=== PATIENT | female | born 1955 | race African-American/Black ===

== ENCOUNTER 2016-06-22 16:36 | Emergency (ER) | payer MEDICAID ==
[~2016-06-22] VITALS: Ht 157.5 cm; Wt 93.0 kg
[~2016-06-22 16:36] MED LIST: GABA-529 PO; LISI-186 PO; METF500T4 PO
[2016-06-22] MEDS ORDERED: SODIUM CHLORIDE 0.9% 2,000 ML IV ONE (19:29)
[2016-06-22 20:06] LABS: BASOPHILS % 1.6 % (0.0-2.0); EOSINOPHILS % 1.9 % (0.0-5.0); HEMATOCRIT. 46.6 % (36.0-48.0); HEMOGLOBIN. 16.1 g/dL (12.0-16.0); LYMPHOCYTES % 30.2 % (20.0-50.0); MEAN CORPUSCULAR HEMOGLOBIN 33.3 pg (28.0-32.0); MEAN CORPUSCULAR HGB CONC 34.5 g/dL (31.0-37.0); MEAN CORPUSCULAR VOLUME 96.3 fL (81.0-99.0); MEAN PLATELET VOLUME 8.4 fl (7.4-10.4); MONOCYTES % 9.5 % (2.0-8.0); NEUTROPHILS % 56.8 % (40.0-76.0); PLATELET 292 x1000/uL (130-400); RED BLOOD CELL COUNT 4.84 mill/uL (4.2-5.4); RED CELL DISTRIBUTION WIDTH 13.1 % (11.6-14.6); WHITE BLOOD COUNT 8.7 x1000/uL (4.5-11.0)
[2016-06-22 20:12] LABS: PROTHROMBIN TIME 10.5 sec
[2016-06-22] MEDS ORDERED: MORPHINE SULFATE 4 MG/ML CPJ (NOT FOR IM USE) IV ONE ×2 (20:15→21:45)
[2016-06-22] MEDS ORDERED: ONDANSETRON HCL 4MG/2ML VIAL IV ONE (20:15)
[2016-06-22 20:29] LABS: ALANINE AMINOTRANSFERASE 24 IU/L (13-61); ALBUMIN 3.8 g/dL (3.4-5.0); ANION GAP 14; BETA HYDROXYBUTYRATE 0.3 mMol/L (0.0-0.3); CALCIUM 9.1 mg/dL (8.5-10.1); CARBON DIOXIDE 25 mEq/L (21-32); CHLORIDE 102 mEq/L (98-107); INDEX HEMOLYSI 4 (1-3); INDEX ICTERIC 1 (1-4); INDEX LIPEMIC 1 (1-3); NT PRO B-TYPE NATRIURETIC PEP 105 pg/mL (5-125); TROPONIN I < 0.02 ng/mL (0.00-0.04); UREA NITROGEN BLOOD 6 mg/dL (7-21); eGFR > 60 mL/min (>60)
[2016-06-22 21:30] LABS: CLARITY URINE CLEAR (CLEAR); COLOR URINE YELLOW (YELLOW); GLUCOSE URINE 3+ (NEGATIVE); KETONES URINE 1+ (NEGATIVE); LEUKOCYTE ESTERASE URINE 1+ (NEGATIVE); NITRITE URINE NEGATIVE (NEGATIVE); OCCULT BLOOD URINE 1+ (NEGATIVE); PH URINE 5.5 (4.5-8.0); PROTEIN URINE TRACE (NEGATIVE); SPECIFIC GRAVITY URINE 1.042 (1.005-1.030)
[2016-06-22 21:33] LABS: BG BASE EXCESS -1.7 mmol/L (-2.0-2.0); BG CARBOXYHEMOGLOBIN 3.6 % (0.5-1.5); BG DEOXYHEMOGLOBIN 2.8 % (0.0-5.0); BG FRACTION INSPIRED OXYGEN 21; BG HCO3 ACT 21.7 mmol/L (22.0-26.0); BG METHEMOGLOBIN 0.2 % (0.0-1.5); BG OXYGEN SATURATION 97.1 % (92.0-98.5); BG OXYHEMOGLOBIN 93.4 % (94.0-97.0); BG PCO2 33.5 mmHg (35.0-45.0); BG PH 7.429 (7.350-7.450); BG PO2 92.8 mmHg (75.0-100.0); BG SAMPLE SITE RIGHT RADIAL; BG TOTAL HEMOGLOBIN 15.7 g/dL (12.0-18.0); BG VENT MODE ROOM AIR
[2016-06-22 21:49] LABS: BACTERIA URINE 2+; SQUAMOUS EPITHELIAL CELL URINE 1+ /lpf (RARE/1+)
[2016-06-22] MEDS ORDERED: CEPHALEXIN 500MG CAPSULE PO ONE (23:30)
[2016-06-22] MEDS ORDERED: VALACYCLOVIR HCL 500MG TABLET PO SCH (23:30)
[2016-06-23 00:50] VITALS: BP 136/79
== END 2016-06-23 01:20 | disposition home or self-care (01) ==
LOC: ER 16:37
DX: B00.9 Herpesviral infection, unspecified (principal); E11.65 Type 2 diabetes mellitus with hyperglycemia; J45.909 Unspecified asthma, uncomplicated; I10 Essential (primary) hypertension; F17.210 Nicotine dependence, cigarettes, uncomplicated; Z79.4 Long term (current) use of insulin
CPT/HCPCS: 36415; 36600; 71010; 80053; 81001; 82010; 82375; 82805; 83880; 84484; 85025; 85610; 93005; 96374; 96375; 96376; 99285; 99406; J2270; J2405; J7030; Z7610

== ENCOUNTER 2016-09-26 17:24 | Inpatient (IN) | payer MEDICAID ==
[~2016-09-26] VITALS: Ht 162.6 cm; Wt 99.8 kg
[2016-09-26] MEDS ORDERED: MORPHINE SULFATE 4 MG/ML CPJ (NOT FOR IM USE) IV ONE (18:15)
[2016-09-26] MEDS ORDERED: ONDANSETRON HCL 4MG/2ML VIAL IV ONE (18:15)
[2016-09-26] MEDS ORDERED: ONDANSETRON 4MG ODT PO ONE (19:15)
[2016-09-26] MEDS ORDERED: HYDROCODONE/ACETAMINOPHEN 5/325MG TABLET PO ONE (19:15)
[2016-09-26 20:19] LABS: *AMPHETAMINES SCREEN URINE NEGATIVE (NEGATIVE); *BARBITURATES SCREEN URINE NEGATIVE (NEGATIVE); *BENZODIAZEPINES SCREEN URINE NEGATIVE (NEGATIVE); *COCAINE SCREEN URINE NEGATIVE (NEGATIVE); CANNABINOID URINE SCREEN NEGATIVE (NEGATIVE); METHADONE URINE SCREEN NEGATIVE (NEGATIVE); OPIATES URINE SCREEN PRESUMTIVE POSITIVE (NEGATIVE); PHENCYCLIDINE URINE SCREEN NEGATIVE (NEGATIVE)
[2016-09-26 20:37] LABS: BASOPHILS % 0.6 % (0.0-2.0); EOSINOPHILS % 0.1 % (0.0-5.0); HEMATOCRIT. 39.6 % (36.0-48.0); HEMOGLOBIN. 13.7 g/dL (12.0-16.0); LYMPHOCYTES % 9.2 % (20.0-50.0); MEAN CORPUSCULAR HEMOGLOBIN 33.2 pg (28.0-32.0); MEAN CORPUSCULAR VOLUME 96.1 fL (81.0-99.0); MEAN PLATELET VOLUME 7.7 fl (7.4-10.4); MONOCYTES % 8.7 % (2.0-8.0); NEUTROPHILS % 81.4 % (40.0-76.0); PLATELET 297 x1000/uL (130-400); RED BLOOD CELL COUNT 4.12 mill/uL (4.2-5.4); RED CELL DISTRIBUTION WIDTH 12.5 % (11.6-14.6)
[2016-09-26 20:38] LABS: CHLORIDE 105 mEq/L (98-107)
[2016-09-26 20:42] LABS: D-DIMER 0.33 mg/L FEU (<0.50); INR 1.1; PARTIAL THROMBOPLASTIN TIME 23.3 sec (24.0-34.0); PROTHROMBIN TIME 11.1 sec
[2016-09-26 20:45] LABS: CARBON DIOXIDE 24 mEq/L (21-32); ETHANOL BLOOD 17 mg/dL
[2016-09-26 20:49] LABS: TROPONIN I 0.12 ng/mL (0.00-0.04)
[2016-09-27] MEDS ORDERED: MORPHINE SULFATE 4 MG/ML CPJ (NOT FOR IM USE) IV ONE (00:15)
[2016-09-27] MEDS ORDERED: AMPICILLIN SOD/SULBACTAM NA 3 G in SODIUM CHLORIDE 0.9% 100 ML IV SCH (00:15)
[2016-09-27 08:00] VITALS: BP 100/63
[2016-09-27] MEDS ORDERED: MORPHINE SULFATE 2 MG/ML CPJ (NOT FOR IM USE) IV PRN (10:15)
[2016-09-27] MEDS ORDERED: ENOXAPARIN 40MG/0.4ML SYR SUBCUT SCH (11:00)
[2016-09-27] MEDS ORDERED: ONDANSETRON HCL 4MG/2ML VIAL IV PRN (12:00)
[2016-09-27] MEDS ORDERED: LORAZEPAM 0.5MG TABLET PO PRN (12:00)
[2016-09-27] MEDS ORDERED: LORAZEPAM 2MG/ML CPJ IV PRN (12:00)
[2016-09-27] MEDS ORDERED: DOCUSATE SODIUM 100MG CAPSULE PO PRN (12:00)
[2016-09-27] MEDS ORDERED: ACETAMINOPHEN 325MG TABLET PO PRN (12:00)
[2016-09-27] MEDS ORDERED: HYDROMORPHONE HCL/PF 2MG/ML CPJ IV PRN (12:00)
[2016-09-27] MEDS ORDERED: IPRATROPIUM/ALBUTEROL 0.5-3(2.5)MG/3ML NEB INH PRN (12:00)
[2016-09-27] MEDS ORDERED: ACETAMINOPHEN 650MG SUPP PR PRN (12:00)
[2016-09-27] MEDS ORDERED: DIPHENHYDRAMINE 50MG/ML VIAL IV PRN (12:00)
[2016-09-27] MEDS ORDERED: CLONIDINE 0.1MG TABLET PO PRN (12:00)
[2016-09-27] MEDS ORDERED: MAGNESIUM/ALUMINUM HYDROXIDE/SIMETHICONE 30ML UDC PO PRN (12:00)
[2016-09-27] MEDS ORDERED: ACETAMINOPHEN WITH CODEINE 300/30MG TABLET PO PRN (14:00)
[2016-09-27] MEDS ORDERED: PIPERACILLIN/TAZ 3.375G PREMIX 50 ML IV SCH (14:00)
[2016-09-27] MEDS: METFORMIN HCL 500MG TABLET PO SCH ×2 (14:00→15:05)
[2016-09-27] MEDS: LISINOPRIL 5MG TABLET PO SCH ×2 (14:00→15:05)
[2016-09-27] MEDS: GABAPENTIN 100MG CAPSULE PO SCH ×2 (14:00→15:06)
[2016-09-27] MEDS: DEXT 5%/0.45% NACL 1000ML 1,000 ML IV SCH ×2 (15:08→20:39)
[2016-09-27] MEDS: METRONIDAZOLE 500 MG PREMIX 100 ML IV SCH ×2 (15:08→20:29)
[2016-09-27 16:00] VITALS: BP 150/85
[2016-09-27 16:53] LABS: TROPONIN I 0.03 ng/mL (0.00-0.04)
[2016-09-27] MEDS ORDERED: DEXTROSE 50% WATER 50ML SYRINGE IV PRN (17:00)
[2016-09-27] MEDS: INSULIN LISPRO 100 UNITS/ML SUBCUT SCH ×2 (17:33→20:47)
[2016-09-27] MEDS: BLOOD SUGAR DIAGNOSTIC STRIP TEST SCH ×2 (17:33→20:30)
[2016-09-27 17:39] VITALS: BP 150/85
[2016-09-27 20:00] VITALS: BP 155/99
[2016-09-27] MEDS: IPRATROPIUM/ALBUTEROL 0.5-3(2.5)MG/3ML NEB HHN SCH (20:04)
[2016-09-28] MEDS: IPRATROPIUM/ALBUTEROL 0.5-3(2.5)MG/3ML NEB HHN SCH
[2016-09-28] MEDS ORDERED: GLIPIZIDE 5MG TABLET PO SCH (07:20)
== END 2016-09-28 00:25 | disposition left against medical advice (07) ==
LOC: ER 17:30 → 6EST 09-27 00:11 → ENRESERV 09-27 07:54
PROVIDERS: ADMIT Internal Medicine Nephrology; ATTEND Internal Medicine Nephrology
DX: K80.01 Calculus of gallbladder with acute cholecystitis with obstruction (principal); K76.0 Fatty (change of) liver, not elsewhere classified; I11.9 Hypertensive heart disease without heart failure; E11.9 Type 2 diabetes mellitus without complications; E78.5 Hyperlipidemia, unspecified; I45.10 Unspecified right bundle-branch block; J45.909 Unspecified asthma, uncomplicated; N89.8 Other specified noninflammatory disorders of vagina; Y90.0 Blood alcohol level of less than 20 mg/100 ml; Z79.84 Long term (current) use of oral hypoglycemic drugs; Z79.899 Other long term (current) drug therapy; Z82.3 Family history of stroke; Z83.3 Family history of diabetes mellitus
CPT/HCPCS: 36415; 71010; 76705; 78227; 80053; 80305; 82553; 82962; 83690; 84484; 85025; 85379; 85610; 85730; 93005; 96365; 96366; 96375; 99285; A9537; G0482; J0295; J1170; J1200; J1650; J1815; J2270; J2405; J2543; J3490; J7050; J7620; Q0162

== ENCOUNTER 2016-12-25 14:23 | Emergency (ER) | payer MEDICAID ==
[~2016-12-25] VITALS: Ht 157.5 cm; Wt 99.0 kg
[2016-12-25] MEDS ORDERED: KETOROLAC 60MG/2ML VIAL IM ONE (19:15)
[2016-12-25 19:20] VITALS: BP 151/69
[2016-12-25] MEDS ORDERED: TRAMADOL 50MG TABLET PO ONE (20:30)
== END 2016-12-25 21:12 | disposition home or self-care (01) ==
LOC: ER 14:23
DX: M25.552 Pain in left hip (principal); M25.562 Pain in left knee; M25.572 Pain in left ankle and joints of left foot; F17.200 Nicotine dependence, unspecified, uncomplicated; J45.909 Unspecified asthma, uncomplicated; E11.9 Type 2 diabetes mellitus without complications; I10 Essential (primary) hypertension; M19.90 Unspecified osteoarthritis, unspecified site; W19.XXXA Unspecified fall, initial encounter; Y93.89 Activity, other specified; Y92.89 Other specified places as the place of occurrence of the external cause; Y99.8 Other external cause status
CPT/HCPCS: 73502; 73560; 73600; 96372; 99284; J1885; Z7610

== ENCOUNTER 2017-10-16 13:00 | Emergency (ER) | payer MEDICAID ==
[~2017-10-16] VITALS: Ht 157.5 cm; Wt 100.0 kg
[~2017-10-16 13:00] MED LIST changes: -METF500T4 PO; +METF500T6 PO
[2017-10-16 14:15] LABS: CLARITY URINE CLEAR (CLEAR); COLOR URINE YELLOW (YELLOW); KETONES URINE TRACE (NEGATIVE); LEUKOCYTE ESTERASE URINE NEGATIVE (NEGATIVE); NITRITE URINE NEGATIVE (NEGATIVE); OCCULT BLOOD URINE NEGATIVE (NEGATIVE); PROTEIN URINE TRACE (NEGATIVE); SPECIFIC GRAVITY URINE 1.021 (1.005-1.030)
[2017-10-16 16:38] LABS: BASOPHILS % 1.1 % (0.0-2.0); EOSINOPHILS % 1.1 % (0.0-5.0); HEMOGLOBIN. 14.8 g/dL (12.0-16.0); LYMPHOCYTES % 33.4 % (20.0-50.0); MEAN CORPUSCULAR HEMOGLOBIN 33.4 pg (28.0-32.0); MEAN CORPUSCULAR VOLUME 97.2 fL (81.0-99.0); MEAN PLATELET VOLUME 7.9 fl (7.4-10.4); MONOCYTES % 6.5 % (2.0-8.0); NEUTROPHILS % 57.9 % (40.0-76.0); PLATELET 365 x1000/uL (130-400); RED BLOOD CELL COUNT 4.42 mill/uL (4.2-5.4); RED CELL DISTRIBUTION WIDTH 13.1 % (11.6-14.6)
[2017-10-16 16:42] LABS: CHLORIDE 101 mEq/L (98-107)
[2017-10-16] MEDS ORDERED: IBUPROFEN 800MG TABLET PO ONE (20:45)
[2017-10-16 21:31] VITALS: BP 140/80
== END 2017-10-16 21:34 | disposition home or self-care (01) ==
LOC: ER 13:00
DX: N39.0 Urinary tract infection, site not specified (principal); F17.200 Nicotine dependence, unspecified, uncomplicated; J45.909 Unspecified asthma, uncomplicated; E11.9 Type 2 diabetes mellitus without complications; I10 Essential (primary) hypertension
CPT/HCPCS: 36415; 80053; 81003; 85025; 99284

== ENCOUNTER 2018-12-14 15:27 | Inpatient (IN) | payer MEDICAID ==
[~2018-12-14] VITALS: Ht 167.6 cm; Wt 107.5 kg
[~2018-12-14 15:27] MED LIST changes: -LISI-186 PO; -METF500T6 PO
[2018-12-14] MEDS ORDERED: MORPHINE SULFATE 4 MG/ML CPJ (NOT FOR IM USE) IV ONE (18:00)
[2018-12-14] MEDS ORDERED: ONDANSETRON HCL 4MG/2ML INJ IV ONE (18:00)
[2018-12-14 18:15] LABS: CHLORIDE 105 mEq/L (98-107)
[2018-12-14 18:16] LABS: INR 1.1; PROTHROMBIN TIME 11.1 sec (9.6-11.0)
[2018-12-14 18:17] LABS: BASOPHILS % 0.5 % (0.0-2.0); EOSINOPHILS % 0.2 % (0.0-5.0); HEMATOCRIT. 42.9 % (36.0-48.0); HEMOGLOBIN. 14.6 g/dL (12.0-16.0); LYMPHOCYTES % 21.2 % (20.0-50.0); MEAN CORPUSCULAR HEMOGLOBIN 33.5 pg (28.0-32.0); MEAN CORPUSCULAR VOLUME 98.5 fL (81.0-99.0); MEAN PLATELET VOLUME 8.4 fl (7.4-10.4); MONOCYTES % 5.6 % (2.0-8.0); NEUTROPHILS % 72.5 % (40.0-76.0); PLATELET 332 x1000/uL (130-400); RED BLOOD CELL COUNT 4.36 mill/uL (4.2-5.4); RED CELL DISTRIBUTION WIDTH 13.3 % (11.6-14.6)
[2018-12-14 18:50] LABS: CLARITY URINE CLEAR (CLEAR); COLOR URINE YELLOW (YELLOW); KETONES URINE 2+ (NEGATIVE); LEUKOCYTE ESTERASE URINE NEGATIVE (NEGATIVE); NITRITE URINE NEGATIVE (NEGATIVE); OCCULT BLOOD URINE NEGATIVE (NEGATIVE); PH URINE 5.5 (4.5-8.0); PROTEIN URINE TRACE (NEGATIVE); SPECIFIC GRAVITY URINE 1.016 (1.005-1.030); UROBILINOGEN URINE 0.2 E.U./dL (0.2-1.0)
[2018-12-14] MEDS ORDERED: IOHEXOL-300 100 ML BOTTLE ONE (19:51)
[2018-12-14] MEDS ORDERED: CLONIDINE 0.1MG TABLET PO PRN (22:30)
[2018-12-14] MEDS: ONDANSETRON HCL 4MG/2ML INJ IV PRN (23:30)
[2018-12-15] VITALS (7 sets, daily range): BP systolic 150–176; BP diastolic 81–96
[2018-12-15] MEDS: MORPHINE SULFATE 2 MG/ML CPJ (NOT FOR IM USE) IV PRN ×4 (01:20→21:04)
[2018-12-15] MEDS: LORAZEPAM 2MG/ML CPJ IV PRN (01:20)
[2018-12-15] MEDS ORDERED: POTASSIUM CHLORIDE 20MEQ TABLET SR PO ONE (02:30)
[2018-12-15] MEDS: DEXT 5%/0.45% NACL 1000ML 1,000 ML IV SCH ×2 (05:51→11:57)
[2018-12-15] MEDS ORDERED: DEXTROSE 50% WATER 50ML SYRINGE IV PRN (09:00)
[2018-12-15] MEDS ORDERED: ENALAPRIL 1.25MG/ML VIAL 1ML IV PRN (09:00)
[2018-12-15] MEDS ORDERED: ENALAPRIL 1.25 MG in DEXTROSE 5% WATER 50 ML IV PRN (09:15)
[2018-12-15 09:45] LABS: HEMATOCRIT. 46.6 % (36.0-48.0); HEMOGLOBIN. 15.9 g/dL (12.0-16.0); MEAN CORPUSCULAR HEMOGLOBIN 33.3 pg (28.0-32.0); MEAN CORPUSCULAR VOLUME 97.5 fL (81.0-99.0); MEAN PLATELET VOLUME 8.1 fl (7.4-10.4); PLATELET 292 x1000/uL (130-400); RED BLOOD CELL COUNT 4.78 mill/uL (4.2-5.4); RED CELL DISTRIBUTION WIDTH 13.1 % (11.6-14.6)
[2018-12-15 10:19] LABS: CHLORIDE 101 mEq/L (98-107)
[2018-12-15 10:27] LABS: LDL CHOLESTEROL 80 mg/dL (5-100)
[2018-12-15 10:29] LABS: HDL CHOLESTEROL 68 mg/dL (40-59)
[2018-12-15 11:52] LABS: PLATELET ESTIMATE NORMAL
[2018-12-15] MEDS: BLOOD SUGAR DIAGNOSTIC STRIP TEST SCH ×3 (12:07→21:00)
[2018-12-15] MEDS: INSULIN LISPRO 100 UNITS/ML SUBCUT SCH ×2 (12:07→17:56)
[2018-12-15] MEDS ORDERED: KCL 20MEQ/100ML PREMIX 100 ML IV NR (18:00)
[2018-12-16] VITALS: BP 134/69
[2018-12-16] MEDS: LORAZEPAM 2MG/ML CPJ IV PRN (01:23)
[2018-12-16 04:00] VITALS: BP 141/88
[2018-12-16] MEDS ORDERED: DILTIAZEM HCL 5MG/ML 5ML VIAL IV PRN (04:30)
[2018-12-16] MEDS: DEXT 5%/0.45% NACL 1000ML 1,000 ML IV SCH ×2 (05:00→14:52)
[2018-12-16] MEDS: INSULIN LISPRO 100 UNITS/ML SUBCUT SCH ×5 (05:01→22:13)
[2018-12-16 06:15] VITALS: BP 141/93
[2018-12-16] MEDS: BLOOD SUGAR DIAGNOSTIC STRIP TEST SCH ×4 (08:17→21:00)
[2018-12-16 12:00] VITALS: BP 139/85
[2018-12-16] MEDS: DILTIAZEM HCL 30MG TABLET PO PRN (13:22)
[2018-12-16] MEDS ORDERED: DILTIAZEM HCL 30MG TABLET PO PRN (13:30)
[2018-12-16] MEDS: MORPHINE SULFATE 2 MG/ML CPJ (NOT FOR IM USE) IV PRN ×2 (14:47→20:02)
[2018-12-16 16:00] VITALS: BP 140/83
[2018-12-16] MEDS: DILTIAZEM HCL 5MG/ML 5ML VIAL IV PRN (19:18)
[2018-12-16 20:00] VITALS: BP 116/76
[2018-12-17] VITALS: BP 110/76
[2018-12-17] MEDS: MORPHINE SULFATE 2 MG/ML CPJ (NOT FOR IM USE) IV PRN ×5 (01:28→20:15)
[2018-12-17 04:00] VITALS: BP 138/87
[2018-12-17] MEDS: DILTIAZEM HCL 30MG TABLET PO PRN (05:57)
[2018-12-17 06:45] LABS: BASOPHILS % 0.3 % (0.0-2.0); HEMATOCRIT. 49.6 % (36.0-48.0); LYMPHOCYTES % 9.6 % (20.0-50.0); MEAN CORPUSCULAR HEMOGLOBIN 33.6 pg (28.0-32.0); MEAN CORPUSCULAR VOLUME 98.1 fL (81.0-99.0); MEAN PLATELET VOLUME 9.3 fl (7.4-10.4); NEUTROPHILS % 82.1 % (40.0-76.0); PLATELET 275 x1000/uL (130-400); RED BLOOD CELL COUNT 5.05 mill/uL (4.2-5.4); RED CELL DISTRIBUTION WIDTH 13.4 % (11.6-14.6)
[2018-12-17 07:39] LABS: CHLORIDE 98 mEq/L (98-107)
[2018-12-17] MEDS: BLOOD SUGAR DIAGNOSTIC STRIP TEST SCH ×4 (07:40→21:00)
[2018-12-17 08:00] VITALS: BP 119/18
[2018-12-17] MEDS: INSULIN LISPRO 100 UNITS/ML SUBCUT SCH ×4 (09:09→22:00)
[2018-12-17] MEDS ORDERED: KCL 20MEQ/100ML PREMIX 100 ML IV SCH (11:00)
[2018-12-17] MEDS ORDERED: CALCIUM GLUCONATE 1,000 MG in DEXT 5% WATER 90 ML IV SCH (11:00)
[2018-12-17] MEDS: METOPROLOL TARTRATE 50MG TABLET PO SCH ×2 (11:34→22:00)
[2018-12-17 12:00] VITALS: BP 134/88
[2018-12-17] MEDS: DILTIAZEM HCL 5MG/ML 5ML VIAL IV PRN (12:09)
[2018-12-17 12:17] LABS: CREATINE KINASE 176 IU/L (26-192)
[2018-12-17] MEDS: DEXT 5%/0.45% NACL 1000ML 1,000 ML IV SCH (13:25)
[2018-12-17 16:00] VITALS: BP 118/82
[2018-12-17 20:00] VITALS: BP 138/82
[2018-12-17] MEDS: ONDANSETRON HCL 4MG/2ML INJ IV PRN (20:33)
[2018-12-18] MEDS: MORPHINE SULFATE 4 MG/ML CPJ (NOT FOR IM USE) IV PRN ×5 (00:07→20:22)
[2018-12-18 00:24] VITALS: BP 118/82
[2018-12-18 04:00] VITALS: BP 124/67
[2018-12-18] MEDS: DEXT 5%/0.45% NACL 1000ML 1,000 ML IV SCH ×2 (05:00→05:05)
[2018-12-18] MEDS: INSULIN LISPRO 100 UNITS/ML SUBCUT SCH ×5 (05:01→21:41)
[2018-12-18] MEDS: BLOOD SUGAR DIAGNOSTIC STRIP TEST SCH ×4 (05:56→21:13)
[2018-12-18] MEDS ORDERED: FUROSEMIDE 20MG/2ML VIAL IVP STA (07:09)
[2018-12-18 08:00] VITALS: BP 114/71
[2018-12-18] MEDS: METOPROLOL TARTRATE 50MG TABLET PO SCH ×2 (08:14→21:38)
[2018-12-18 08:29] LABS: HEMOGLOBIN. 15.7 g/dL (12.0-16.0); MEAN CORPUSCULAR HEMOGLOBIN 33.6 pg (28.0-32.0); MEAN CORPUSCULAR VOLUME 98.2 fL (81.0-99.0); MEAN PLATELET VOLUME 9.6 fl (7.4-10.4); PLATELET 246 x1000/uL (130-400); RED BLOOD CELL COUNT 4.68 mill/uL (4.2-5.4); RED CELL DISTRIBUTION WIDTH 13.5 % (11.6-14.6)
[2018-12-18 08:47] LABS: CHLORIDE 95 mEq/L (98-107)
[2018-12-18] MEDS ORDERED: SODIUM CHLORIDE 0.9% 1,000 ML IV SCH (09:30)
[2018-12-18] MEDS: DEXT 5%/0.9% NACL 1,000 ML IV SCH ×2 (10:16→20:00)
[2018-12-18 10:49] LABS: PLATELET ESTIMATE NORMAL
[2018-12-18 10:51] LABS: BG BASE EXCESS -7.1 mmol/L (-2.0-2.0); BG CARBOXYHEMOGLOBIN 0.4 % (0.5-1.5); BG DEOXYHEMOGLOBIN 5.8 % (0.0-5.0); BG FRACTION INSPIRED OXYGEN 28; BG HCO3 ACT 16.7 mmol/L (22.0-26.0); BG METHEMOGLOBIN 0.3 % (0.0-1.5); BG OXYGEN SATURATION 94.2 % (92.0-98.5); BG OXYHEMOGLOBIN 93.5 % (94.0-97.0); BG PCO2 29.6 mmHg (35.0-45.0); BG PH 7.368 (7.350-7.450); BG SAMPLE SITE LEFT RADIAL; BG TOTAL HEMOGLOBIN 15.3 g/dL (12.0-18.0); BG VENT MODE NASAL CANNULA
[2018-12-18] MEDS ORDERED: MAGNESIUM 4 G PREMIX 100 ML IV NR (11:00)
[2018-12-18 12:00] VITALS: BP 121/79
[2018-12-18] MEDS ORDERED: SODIUM PHOS,M-BASIC-D-BASIC 15 MM in DEXT 5% WATER 245 ML IV SCH (12:00)
[2018-12-18] MEDS ORDERED: CALCIUM CHLORIDE 1,000 MG in DEXT 5% WATER 90 ML IV SCH (12:00)
[2018-12-18] MEDS: CITRIC ACID/SODIUM CITRATE SOLN 15ML UDC PO SCH ×2 (13:57→17:00)
[2018-12-18 16:00] VITALS: BP 120/65
[2018-12-18 20:00] VITALS: BP 134/80
[2018-12-18] MEDS: ONDANSETRON HCL 4MG/2ML INJ IV PRN (20:20)
[2018-12-19] VITALS: BP 137/79
[2018-12-19] MEDS: MORPHINE SULFATE 4 MG/ML CPJ (NOT FOR IM USE) IV PRN ×3 (00:23→11:07)
[2018-12-19] MEDS: ONDANSETRON HCL 4MG/2ML INJ IV PRN (06:19)
[2018-12-19] MEDS: DEXT 5%/0.9% NACL 1,000 ML IV SCH ×2 (06:44→16:00)
[2018-12-19] MEDS: BLOOD SUGAR DIAGNOSTIC STRIP TEST SCH ×4 (07:28→20:42)
[2018-12-19 08:00] VITALS: BP 105/84
[2018-12-19] MEDS: INSULIN LISPRO 100 UNITS/ML SUBCUT SCH ×4 (08:10→20:43)
[2018-12-19 09:31] LABS: HEMATOCRIT. 40.9 % (36.0-48.0); MEAN CORPUSCULAR HEMOGLOBIN 33.5 pg (28.0-32.0); MEAN CORPUSCULAR VOLUME 97.7 fL (81.0-99.0); MEAN PLATELET VOLUME 9.2 fl (7.4-10.4); PLATELET 250 x1000/uL (130-400); RED BLOOD CELL COUNT 4.19 mill/uL (4.2-5.4); RED CELL DISTRIBUTION WIDTH 13.2 % (11.6-14.6)
[2018-12-19 09:38] LABS: CHLORIDE 92 mEq/L (98-107)
[2018-12-19 09:42] LABS: PHOSPHORUS 2.9 mg/dL (2.5-4.9)
[2018-12-19] MEDS: LORAZEPAM 2MG/ML CPJ IV PRN (11:07)
[2018-12-19] MEDS: METOPROLOL TARTRATE 50MG TABLET PO SCH ×2 (11:08→20:42)
[2018-12-19 12:00] VITALS: BP 143/81
[2018-12-19] MEDS ORDERED: CALCIUM GLUCONATE 1,000 MG in DEXT 5% WATER 90 ML IV NR (12:00)
[2018-12-19 12:28] LABS: CHLORIDE 93 mEq/L (98-107)
[2018-12-19] MEDS: CITRIC ACID/SODIUM CITRATE SOLN 15ML UDC PO SCH ×2 (13:56→17:00)
[2018-12-19 16:11] VITALS: BP 136/98
[2018-12-19 16:44] LABS: PLATELET ESTIMATE NORMAL
[2018-12-19] MEDS: CALCIUM CARBONATE 1250MG TABLET (500MG ELEMENTAL CALCIUM) PO SCH (17:00)
[2018-12-19 20:00] VITALS: BP 127/70
[2018-12-20] VITALS: BP 129/79
[2018-12-20] MEDS: KETOROLAC 15MG/ML VIAL IM PRN ×2 (00:02→05:54)
[2018-12-20] MEDS: DEXT 5%/0.9% NACL 1,000 ML IV SCH ×2 (02:00→11:32)
[2018-12-20 04:00] VITALS: BP 113/59
[2018-12-20 07:00] LABS: HEMATOCRIT. 36.1 % (36.0-48.0); HEMOGLOBIN. 12.6 g/dL (12.0-16.0); MEAN CORPUSCULAR HEMOGLOBIN 33.6 pg (28.0-32.0); MEAN CORPUSCULAR VOLUME 96.3 fL (81.0-99.0); MEAN PLATELET VOLUME 9.5 fl (7.4-10.4); PLATELET 251 x1000/uL (130-400); RED BLOOD CELL COUNT 3.74 mill/uL (4.2-5.4); RED CELL DISTRIBUTION WIDTH 12.9 % (11.6-14.6)
[2018-12-20] MEDS: BLOOD SUGAR DIAGNOSTIC STRIP TEST SCH ×2 (07:59→12:49)
[2018-12-20 08:00] VITALS: BP 145/77
[2018-12-20] MEDS: CITRIC ACID/SODIUM CITRATE SOLN 15ML UDC PO SCH ×2 (08:00→12:49)
[2018-12-20] MEDS: INSULIN LISPRO 100 UNITS/ML SUBCUT SCH ×2 (08:10→12:49)
[2018-12-20] MEDS: METOPROLOL TARTRATE 50MG TABLET PO SCH (09:00)
[2018-12-20] MEDS: CALCIUM CARBONATE 1250MG TABLET (500MG ELEMENTAL CALCIUM) PO SCH (09:00)
[2018-12-20 12:00] VITALS: BP 118/64
[2018-12-20 13:29] VITALS: BP 118/64
[2018-12-20 14:17] LABS: PLATELET ESTIMATE NORMAL
== END 2018-12-20 15:59 | disposition home or self-care (01) | DRG 282 ==
LOC: ER 15:27 → 6EST 19:27 → ENRESERV 12-15 01:05 → 6EST 12-15 03:33 → 7WST 12-16 05:56
PROVIDERS: ADMIT Hospitalist; ATTEND Hospitalist
DX: K85.20 Alcohol induced acute pancreatitis without necrosis or infection (principal); K56.609 Unspecified intestinal obstruction, unspecified as to partial versus complete obstruction; N17.9 Acute kidney failure, unspecified; E83.39 Other disorders of phosphorus metabolism; E83.42 Hypomagnesemia; K56.7 Ileus, unspecified; K76.0 Fatty (change of) liver, not elsewhere classified; R65.10 Systemic inflammatory response syndrome (SIRS) of non-infectious origin without acute organ dysfunction; E83.51 Hypocalcemia; E11.9 Type 2 diabetes mellitus without complications; E87.1 Hypo-osmolality and hyponatremia; E87.6 Hypokalemia; F10.10 Alcohol abuse, uncomplicated; I10 Essential (primary) hypertension; E66.9 Obesity, unspecified; E86.9 Volume depletion, unspecified; Z68.35 Body mass index [BMI] 35.0-35.9, adult; Z79.899 Other long term (current) drug therapy; Z90.49 Acquired absence of other specified parts of digestive tract; Z88.8 Allergy status to other drugs, medicaments and biological substances
CPT/HCPCS: 36415; 36600; 74018; 74177; 76705; 80048; 80061; 81003; 82375; 82533; 82550; 82805; 82962; 83605; 83735; 83930; 84100; 84443; 93005; 93970; 96374; 99285; C1893; J0610; J1815; J1885; J1940; J2060; J2270; J2405; J3475; J3480; J3490; J7042; J7060; Q9967

== ENCOUNTER 2018-12-24 12:41 | Inpatient (IN) | payer MEDICAID ==
[~2018-12-24] VITALS: Ht 157.5 cm; Wt 110.0 kg
[2018-12-24] MEDS ORDERED: ONDANSETRON HCL 4MG/2ML INJ IV STA (13:15)
[2018-12-24] MEDS ORDERED: SODIUM CHLORIDE 0.9% 1,000 ML IV ONE (13:15)
[2018-12-24] MEDS ORDERED: MORPHINE SULFATE 4 MG/ML CPJ (NOT FOR IM USE) IV STA (13:15)
[2018-12-24 16:47] LABS: HEMATOCRIT. 34.2 % (36.0-48.0); HEMOGLOBIN. 11.4 g/dL (12.0-16.0); MEAN CORPUSCULAR HEMOGLOBIN 33.3 pg (28.0-32.0); MEAN CORPUSCULAR VOLUME 99.6 fL (81.0-99.0); PLATELET 375 x1000/uL (130-400); RED BLOOD CELL COUNT 3.44 mill/uL (4.2-5.4); RED CELL DISTRIBUTION WIDTH 14.3 % (11.6-14.6)
[2018-12-24 16:48] LABS: CHLORIDE 98 mEq/L (98-107)
[2018-12-24 16:52] LABS: INR 1.1; PARTIAL THROMBOPLASTIN TIME 29.9 sec (23.4-31.0)
[2018-12-24] MEDS ORDERED: METRONIDAZOLE 500 MG PREMIX 100 ML IV ONE (17:30)
[2018-12-24] MEDS ORDERED: SODIUM CHLORIDE 0.9% 1000ML BAG (SEPSIS BOLUS) IV ONE (17:30)
[2018-12-24] MEDS ORDERED: PIPERACILLIN/TAZ 3.375G PREMIX 50 ML IV ONE (17:30)
[2018-12-24 17:37] LABS: CLARITY URINE CLEAR (CLEAR); COLOR URINE YELLOW (YELLOW); KETONES URINE 3+ (NEGATIVE); LEUKOCYTE ESTERASE URINE NEGATIVE (NEGATIVE); NITRITE URINE NEGATIVE (NEGATIVE); OCCULT BLOOD URINE NEGATIVE (NEGATIVE); PROTEIN URINE 1+ (NEGATIVE); SPECIFIC GRAVITY URINE 1.024 (1.005-1.030)
[2018-12-24 19:03] LABS: PLATELET ESTIMATE NORMAL
[2018-12-24 20:00] VITALS: BP 157/76
[2018-12-24 20:30] VITALS: BP 157/76
[2018-12-24] MEDS ORDERED: DEXTROSE 50% WATER 50ML SYRINGE IV PRN (23:00)
[2018-12-24] MEDS: MORPHINE SULFATE 2 MG/ML CPJ (NOT FOR IM USE) IV PRN (23:55)
[2018-12-25] VITALS: BP 162/80
[2018-12-25] MEDS ORDERED: PIPERACILLIN/TAZOBACTAM 3.375GM/50ML PREMIX IV SCH
[2018-12-25] MEDS ORDERED: DEXT 5%/0.45% NACL KCL 20MEQ/L 1,000 ML IV SCH
[2018-12-25] MEDS ORDERED: PIPERACILLIN/TAZOBACTAM 3.375 G in DEXT 5% WATER 100 ML IV SCH ×2
[2018-12-25] MEDS: PIPERACILLIN/TAZOBACTAM 3.375 G in DEXT 5% WATER 100 ML IV SCH ×3 (01:20→11:30)
[2018-12-25 04:00] VITALS: BP 159/80
[2018-12-25 06:13] LABS: HEMATOCRIT. 35.7 % (36.0-48.0); HEMOGLOBIN. 12.1 g/dL (12.0-16.0); MEAN CORPUSCULAR HEMOGLOBIN 33.6 pg (28.0-32.0); MEAN CORPUSCULAR VOLUME 99.1 fL (81.0-99.0); PLATELET 390 x1000/uL (130-400); RED BLOOD CELL COUNT 3.61 mill/uL (4.2-5.4); RED CELL DISTRIBUTION WIDTH 14.1 % (11.6-14.6)
[2018-12-25] MEDS: BLOOD SUGAR DIAGNOSTIC STRIP TEST SCH ×4 (06:25→23:49)
[2018-12-25] MEDS: INSULIN LISPRO 100 UNITS/ML SUBCUT SCH ×4 (06:39→23:57)
[2018-12-25] MEDS: MORPHINE SULFATE 2 MG/ML CPJ (NOT FOR IM USE) IV PRN ×2 (06:45→10:31)
[2018-12-25] MEDS ORDERED: BLOOD SUGAR DIAGNOSTIC STRIP TEST SCH (07:10)
[2018-12-25] MEDS ORDERED: INSULIN LISPRO 100 UNITS/ML SUBCUT SCH (07:40)
[2018-12-25 08:00] VITALS: BP 147/75
[2018-12-25] MEDS ORDERED: HYDRALAZINE 20MG/ML VIAL IV PRN (08:15)
[2018-12-25 08:22] LABS: PLATELET ESTIMATE NORMAL
[2018-12-25] MEDS ORDERED: ASPIRIN 325MG TABLET PO SCH (09:00)
[2018-12-25] MEDS ORDERED: FUROSEMIDE 40MG TABLET PO SCH (09:00)
[2018-12-25] MEDS ORDERED: CARVEDILOL 3.125 MG TABLET PO SCH (09:00)
[2018-12-25] MEDS ORDERED: LISINOPRIL 10MG TABLET PO SCH (09:00)
[2018-12-25] MEDS ORDERED: LORAZEPAM 2MG/ML CPJ IV PRN (11:15)
[2018-12-25] MEDS: SODIUM CHLORIDE 0.9% 1,000 ML IV SCH ×3 (11:29→23:45)
[2018-12-25] MEDS: INSULIN GLARGINE UD 100 UNITS/ML SYR SUBCUT SCH ×2 (11:43→21:48)
[2018-12-25 11:51] VITALS: BP 147/87
[2018-12-25] MEDS: HYDROMORPHONE HCL/PF 2MG/ML CPJ IV PRN ×3 (11:57→21:47)
[2018-12-25] MEDS: MEROPENEM 1,000 MG in SODIUM CHLORIDE 0.9% 100 ML IV SCH ×2 (14:39→21:31)
[2018-12-25 16:00] VITALS: BP 158/86
[2018-12-25] MEDS ORDERED: IPRATROPIUM BROMIDE (0.02%) 0.5MG/2.5ML NEB HHN PRN (17:45)
[2018-12-25 20:00] VITALS: BP 149/77
[2018-12-26] VITALS (7 sets, daily range): BP systolic 116–168; BP diastolic 68–86
[2018-12-26] MEDS: HYDROMORPHONE HCL/PF 2MG/ML CPJ IV PRN ×4 (01:47→19:01)
[2018-12-26] MEDS: BLOOD SUGAR DIAGNOSTIC STRIP TEST SCH ×4 (05:53→23:18)
[2018-12-26] MEDS: MEROPENEM 1,000 MG in SODIUM CHLORIDE 0.9% 100 ML IV SCH ×3 (05:55→22:10)
[2018-12-26] MEDS: INSULIN LISPRO 100 UNITS/ML SUBCUT SCH ×6 (06:11→23:19)
[2018-12-26 06:39] LABS: CHLORIDE 109 mEq/L (98-107)
[2018-12-26 06:42] LABS: HEMATOCRIT. 33.9 % (36.0-48.0); HEMOGLOBIN. 11.2 g/dL (12.0-16.0); MEAN CORPUSCULAR HEMOGLOBIN 32.7 pg (28.0-32.0); MEAN CORPUSCULAR VOLUME 98.8 fL (81.0-99.0); MEAN PLATELET VOLUME 9.3 fl (7.4-10.4); PLATELET 370 x1000/uL (130-400); RED BLOOD CELL COUNT 3.43 mill/uL (4.2-5.4)
[2018-12-26] MEDS ORDERED: INSULIN LISPRO 100 UNITS/ML SUBCUT SCH (07:10)
[2018-12-26] MEDS: ONDANSETRON HCL 4MG/2ML INJ IV PRN (09:54)
[2018-12-26] MEDS: INSULIN GLARGINE UD 100 UNITS/ML SYR SUBCUT SCH ×2 (10:51→22:00)
[2018-12-26 11:10] LABS: PLATELET ESTIMATE NORMAL
[2018-12-26] MEDS: SODIUM CHLORIDE 0.9% 1,000 ML IV SCH ×2 (14:56→23:28)
[2018-12-27] VITALS: BP 157/72
[2018-12-27 04:00] VITALS: BP 163/74
[2018-12-27 05:39] LABS: CHLORIDE 108 mEq/L (98-107)
[2018-12-27] MEDS: INSULIN LISPRO 100 UNITS/ML SUBCUT SCH ×6 (06:00→17:43)
[2018-12-27] MEDS: MEROPENEM 1,000 MG in SODIUM CHLORIDE 0.9% 100 ML IV SCH ×4 (06:00→20:42)
[2018-12-27 06:15] LABS: HEMATOCRIT. 33.1 % (36.0-48.0); HEMOGLOBIN. 11.2 g/dL (12.0-16.0); MEAN CORPUSCULAR HEMOGLOBIN 33.2 pg (28.0-32.0); MEAN CORPUSCULAR VOLUME 98.1 fL (81.0-99.0); PLATELET 351 x1000/uL (130-400); RED BLOOD CELL COUNT 3.38 mill/uL (4.2-5.4); RED CELL DISTRIBUTION WIDTH 13.8 % (11.6-14.6)
[2018-12-27] MEDS: BLOOD SUGAR DIAGNOSTIC STRIP TEST SCH ×3 (06:38→18:24)
[2018-12-27 07:29] LABS: PLATELET ESTIMATE NORMAL
[2018-12-27 08:00] VITALS: BP 150/92
[2018-12-27] MEDS ORDERED: LIDOCAINE HCL 1% 20ML VIAL (Pyxis) INJ ONE (08:00)
[2018-12-27] MEDS: HYDROMORPHONE HCL/PF 2MG/ML CPJ IV PRN ×3 (09:56→20:42)
[2018-12-27] MEDS: INSULIN GLARGINE UD 100 UNITS/ML SYR SUBCUT SCH (10:00)
[2018-12-27] MEDS: SODIUM CHLORIDE 0.9% 1,000 ML IV SCH ×2 (10:15→20:15)
[2018-12-27] MEDS ORDERED: POTASSIUM CHLORIDE INJ 40 MEQ in DEXT 5% WATER 250 ML IV NR (11:30)
[2018-12-27 12:00] VITALS: BP 152/79
[2018-12-27 16:00] VITALS: BP 141/74
[2018-12-27 20:00] VITALS: BP 160/91
[2018-12-28] VITALS: BP 148/78
[2018-12-28] MEDS: HYDROMORPHONE HCL/PF 2MG/ML CPJ IV PRN ×5 (01:54→21:30)
[2018-12-28 04:00] VITALS: BP 143/81
[2018-12-28] MEDS: INSULIN LISPRO 100 UNITS/ML SUBCUT SCH ×7 (06:00→17:32)
[2018-12-28] MEDS: BLOOD SUGAR DIAGNOSTIC STRIP TEST SCH ×4 (06:43→17:34)
[2018-12-28] MEDS: MEROPENEM 1,000 MG in SODIUM CHLORIDE 0.9% 100 ML IV SCH ×3 (06:47→21:27)
[2018-12-28] MEDS: SODIUM CHLORIDE 0.9% 1,000 ML IV SCH ×2 (06:50→21:26)
[2018-12-28 07:08] LABS: CHLORIDE 106 mEq/L (98-107)
[2018-12-28 07:25] LABS: HEMOGLOBIN. 10.7 g/dL (12.0-16.0); MEAN CORPUSCULAR VOLUME 98.3 fL (81.0-99.0); MEAN PLATELET VOLUME 9.3 fl (7.4-10.4); PLATELET 327 x1000/uL (130-400); RED BLOOD CELL COUNT 3.26 mill/uL (4.2-5.4)
[2018-12-28 08:00] VITALS: BP 146/73
[2018-12-28 12:00] VITALS: BP 146/85
[2018-12-28 18:06] LABS: PLATELET ESTIMATE NORMAL
[2018-12-28 20:00] VITALS: BP 149/84
[2018-12-28] MEDS: INSULIN GLARGINE UD 100 UNITS/ML SYR SUBCUT SCH (23:32)
[2018-12-29] VITALS: BP 151/75
[2018-12-29] MEDS: HYDROMORPHONE HCL/PF 2MG/ML CPJ IV PRN ×5 (01:28→20:03)
[2018-12-29] MEDS: SODIUM CHLORIDE 0.9% 1,000 ML IV SCH ×3 (02:15→23:09)
[2018-12-29 04:00] VITALS: BP 134/72
[2018-12-29] MEDS: MEROPENEM 1,000 MG in SODIUM CHLORIDE 0.9% 100 ML IV SCH ×3 (06:12→21:41)
[2018-12-29] MEDS: BLOOD SUGAR DIAGNOSTIC STRIP TEST SCH ×4 (06:42→17:46)
[2018-12-29] MEDS: INSULIN LISPRO 100 UNITS/ML SUBCUT SCH ×7 (06:46→17:46)
[2018-12-29 07:06] LABS: BASOPHILS % 0.5 % (0.0-2.0); EOSINOPHILS % 0.6 % (0.0-5.0); HEMATOCRIT. 30.7 % (36.0-48.0); HEMOGLOBIN. 10.2 g/dL (12.0-16.0); LYMPHOCYTES % 8.6 % (20.0-50.0); MEAN CORPUSCULAR HEMOGLOBIN 32.8 pg (28.0-32.0); MEAN CORPUSCULAR VOLUME 99.1 fL (81.0-99.0); MONOCYTES % 9.6 % (2.0-8.0); NEUTROPHILS % 80.7 % (40.0-76.0); PLATELET 310 x1000/uL (130-400); RED CELL DISTRIBUTION WIDTH 14.1 % (11.6-14.6)
[2018-12-29 07:46] LABS: CHLORIDE 106 mEq/L (98-107)
[2018-12-29 08:00] VITALS: BP 142/85
[2018-12-29] MEDS: INSULIN GLARGINE UD 100 UNITS/ML SYR SUBCUT SCH ×2 (10:28→22:00)
[2018-12-29 12:00] VITALS: BP 128/76
[2018-12-29 16:00] VITALS: BP 148/80
[2018-12-29 20:00] VITALS: BP 164/74
[2018-12-30] VITALS: BP 124/75
[2018-12-30] MEDS: HYDROMORPHONE HCL/PF 2MG/ML CPJ IV PRN ×7 (00:09→21:38)
[2018-12-30] MEDS: BLOOD SUGAR DIAGNOSTIC STRIP TEST SCH ×4 (00:47→18:03)
[2018-12-30 04:00] VITALS: BP 146/65
[2018-12-30] MEDS: MEROPENEM 1,000 MG in SODIUM CHLORIDE 0.9% 100 ML IV SCH ×3 (06:41→21:48)
[2018-12-30 07:25] LABS: BASOPHILS % 0.3 % (0.0-2.0); EOSINOPHILS % 0.6 % (0.0-5.0); HEMATOCRIT. 30.3 % (36.0-48.0); HEMOGLOBIN. 10.2 g/dL (12.0-16.0); LYMPHOCYTES % 11.4 % (20.0-50.0); MEAN PLATELET VOLUME 8.5 fl (7.4-10.4); MONOCYTES % 12.9 % (2.0-8.0); NEUTROPHILS % 74.8 % (40.0-76.0); PLATELET 310 x1000/uL (130-400); RED BLOOD CELL COUNT 3.09 mill/uL (4.2-5.4); RED CELL DISTRIBUTION WIDTH 13.8 % (11.6-14.6)
[2018-12-30 07:27] LABS: CHLORIDE 108 mEq/L (98-107)
[2018-12-30 08:00] VITALS: BP 155/80
[2018-12-30] MEDS: SODIUM CHLORIDE 0.9% 1,000 ML IV SCH ×2 (08:50→18:04)
[2018-12-30] MEDS: INSULIN LISPRO 100 UNITS/ML SUBCUT SCH ×7 (08:51→17:18)
[2018-12-30] MEDS: INSULIN GLARGINE UD 100 UNITS/ML SYR SUBCUT SCH ×2 (10:25→21:51)
[2018-12-30 12:00] VITALS: BP 146/78
[2018-12-30] MEDS ORDERED: HYDROMORPHONE HCL/PF 2MG/ML CPJ IM PRN (12:15)
[2018-12-30] MEDS: METOCLOPRAMIDE HCL 10MG/2ML VIAL IV SCH ×3 (13:34→21:49)
[2018-12-30] MEDS: POTASSIUM CHLORIDE 20MEQ/PACKET PO SCH ×2 (13:34→13:37)
[2018-12-30 16:14] VITALS: BP 155/75
[2018-12-30] MEDS: THROAT LOZENGES-BENZOCAINE/MENTH/CETYLPYRD CL LOZENGES MM PRN (17:17)
[2018-12-30 20:00] VITALS: BP 156/81
[2018-12-31] VITALS: BP 156/73
[2018-12-31] MEDS: BLOOD SUGAR DIAGNOSTIC STRIP TEST SCH ×4 (01:14→18:04)
[2018-12-31] MEDS: HYDROMORPHONE HCL/PF 2MG/ML CPJ IV PRN ×5 (01:24→21:35)
[2018-12-31] MEDS: ONDANSETRON HCL 4MG/2ML INJ IV PRN (01:24)
[2018-12-31] MEDS: INSULIN LISPRO 100 UNITS/ML SUBCUT SCH ×7 (01:40→17:42)
[2018-12-31 04:00] VITALS: BP 143/78
[2018-12-31] MEDS: SODIUM CHLORIDE 0.9% 1,000 ML IV SCH ×2 (04:23→13:15)
[2018-12-31] MEDS: MEROPENEM 1,000 MG in SODIUM CHLORIDE 0.9% 100 ML IV SCH ×3 (05:47→21:34)
[2018-12-31] MEDS: METOCLOPRAMIDE HCL 10MG/2ML VIAL IV SCH ×3 (05:47→21:34)
[2018-12-31 06:39] LABS: HEMATOCRIT. 29.2 % (36.0-48.0); HEMOGLOBIN. 9.8 g/dL (12.0-16.0); MEAN CORPUSCULAR HEMOGLOBIN 32.8 pg (28.0-32.0); MEAN CORPUSCULAR VOLUME 97.3 fL (81.0-99.0); MEAN PLATELET VOLUME 8.6 fl (7.4-10.4); PLATELET 303 x1000/uL (130-400); RED CELL DISTRIBUTION WIDTH 13.9 % (11.6-14.6)
[2018-12-31 07:01] LABS: CHLORIDE 107 mEq/L (98-107)
[2018-12-31 08:00] VITALS: BP 145/88
[2018-12-31] MEDS: INSULIN GLARGINE UD 100 UNITS/ML SYR SUBCUT SCH ×2 (11:30→22:00)
[2018-12-31 12:13] VITALS: BP 146/65
[2018-12-31] MEDS ORDERED: POTASSIUM CHLORIDE 20MEQ TABLET SR PO NR (13:30)
[2018-12-31 13:53] LABS: PLATELET ESTIMATE NORMAL
[2018-12-31 16:00] VITALS: BP 157/70
[2018-12-31 20:00] VITALS: BP 150/86
[2019-01-01] VITALS: BP 143/76
[2019-01-01] MEDS: HYDROMORPHONE HCL/PF 2MG/ML CPJ IV PRN ×3 (03:41→16:25)
[2019-01-01] MEDS: SODIUM CHLORIDE 0.9% 1,000 ML IV SCH ×3 (03:42→20:15)
[2019-01-01] MEDS: THROAT LOZENGES-BENZOCAINE/MENTH/CETYLPYRD CL LOZENGES MM PRN (03:44)
[2019-01-01 04:00] VITALS: BP 153/87
[2019-01-01] MEDS: MEROPENEM 1,000 MG in SODIUM CHLORIDE 0.9% 100 ML IV SCH (05:19)
[2019-01-01] MEDS: BLOOD SUGAR DIAGNOSTIC STRIP TEST SCH ×4 (05:19→17:04)
[2019-01-01] MEDS: METOCLOPRAMIDE HCL 10MG/2ML VIAL IV SCH ×4 (05:19→22:19)
[2019-01-01] MEDS: INSULIN LISPRO 100 UNITS/ML SUBCUT SCH ×5 (06:00→17:03)
[2019-01-01 07:07] LABS: CHLORIDE 107 mEq/L (98-107)
[2019-01-01 07:08] LABS: BASOPHILS % 0.3 % (0.0-2.0); HEMATOCRIT. 29.3 % (36.0-48.0); HEMOGLOBIN. 9.9 g/dL (12.0-16.0); LYMPHOCYTES % 13.3 % (20.0-50.0); MEAN CORPUSCULAR HEMOGLOBIN 33.4 pg (28.0-32.0); MEAN CORPUSCULAR VOLUME 98.2 fL (81.0-99.0); MEAN PLATELET VOLUME 8.7 fl (7.4-10.4); MONOCYTES % 14.9 % (2.0-8.0); NEUTROPHILS % 70.5 % (40.0-76.0); PLATELET 309 x1000/uL (130-400); RED BLOOD CELL COUNT 2.98 mill/uL (4.2-5.4); RED CELL DISTRIBUTION WIDTH 13.7 % (11.6-14.6)
[2019-01-01 08:00] VITALS: BP 159/81
[2019-01-01] MEDS: INSULIN GLARGINE UD 100 UNITS/ML SYR SUBCUT SCH ×2 (09:01→22:20)
[2019-01-01] MEDS ORDERED: POTASSIUM CHLORIDE 20MEQ TABLET SR PO SCH (11:45)
[2019-01-01 12:00] VITALS: BP 158/73
[2019-01-01 16:00] VITALS: BP 152/82
[2019-01-01] MEDS ORDERED: HYDR-4009 MT (17:17)
[2019-01-01 20:00] VITALS: BP 156/82
[2019-01-02] VITALS: BP 141/69
[2019-01-02 01:59] VITALS: BP 141/69
[2019-01-02] MEDS: HYDROCODONE/ACETAMINOPHEN 10/325MG TABLET PO PRN ×6 (02:28→20:58)
[2019-01-02 04:00] VITALS: BP 166/81
[2019-01-02] MEDS: BLOOD SUGAR DIAGNOSTIC STRIP TEST SCH ×4 (06:35→18:00)
[2019-01-02] MEDS: METOCLOPRAMIDE HCL 10MG/2ML VIAL IV SCH ×3 (06:41→22:05)
[2019-01-02] MEDS: INSULIN LISPRO 100 UNITS/ML SUBCUT SCH ×4 (06:43→22:07)
[2019-01-02] MEDS: INSULIN GLARGINE UD 100 UNITS/ML SYR SUBCUT SCH ×2 (10:00→22:07)
[2019-01-02 12:00] VITALS: BP 159/72
[2019-01-02 16:00] VITALS: BP 159/82
[2019-01-02] MEDS: SODIUM CHLORIDE 0.9% 1,000 ML IV SCH (16:15)
[2019-01-02] MEDS: MEROPENEM 1,000 MG in SODIUM CHLORIDE 0.9% 100 ML IV SCH ×2 (17:44→21:56)
[2019-01-02 20:00] VITALS: BP 144/84
[2019-01-02 20:51] LABS: BASOPHILS % 0.5 % (0.0-2.0); EOSINOPHILS % 0.8 % (0.0-5.0); HEMOGLOBIN. 9.7 g/dL (12.0-16.0); MEAN CORPUSCULAR HEMOGLOBIN 32.9 pg (28.0-32.0); MEAN CORPUSCULAR VOLUME 98.7 fL (81.0-99.0); MEAN PLATELET VOLUME 8.3 fl (7.4-10.4); MONOCYTES % 15.3 % (2.0-8.0); NEUTROPHILS % 66.4 % (40.0-76.0); PLATELET 295 x1000/uL (130-400); RED BLOOD CELL COUNT 2.94 mill/uL (4.2-5.4); RED CELL DISTRIBUTION WIDTH 13.7 % (11.6-14.6)
[2019-01-02 20:56] LABS: CHLORIDE 108 mEq/L (98-107)
[2019-01-02] MEDS: AMLODIPINE 5MG TABLET PO SCH (21:56)
[2019-01-03] VITALS (7 sets, daily range): BP systolic 113–150; BP diastolic 70–80
[2019-01-03] MEDS: THROAT LOZENGES-BENZOCAINE/MENTH/CETYLPYRD CL LOZENGES MM PRN (02:31)
[2019-01-03] MEDS: HYDROCODONE/ACETAMINOPHEN 10/325MG TABLET PO PRN ×5 (02:34→20:28)
[2019-01-03] MEDS: METOCLOPRAMIDE HCL 10MG/2ML VIAL IV SCH ×3 (05:14→23:05)
[2019-01-03] MEDS: MEROPENEM 1,000 MG in SODIUM CHLORIDE 0.9% 100 ML IV SCH ×3 (05:14→23:01)
[2019-01-03] MEDS: BLOOD SUGAR DIAGNOSTIC STRIP TEST SCH ×5 (05:29→23:41)
[2019-01-03] MEDS: INSULIN LISPRO 100 UNITS/ML SUBCUT SCH ×5 (05:44→23:41)
[2019-01-03] MEDS ORDERED: ACETAMINOPHEN 325MG TABLET PO PRN (09:00)
[2019-01-03] MEDS: AMLODIPINE 5MG TABLET PO SCH ×2 (09:02→20:27)
[2019-01-03] MEDS: SODIUM CHLORIDE 0.9% 1,000 ML IV SCH (09:38)
[2019-01-03] MEDS: INSULIN GLARGINE UD 100 UNITS/ML SYR SUBCUT SCH ×2 (09:53→23:01)
[2019-01-03 20:28] LABS: CHLORIDE 110 mEq/L (98-107)
[2019-01-04] VITALS: BP 164/76
[2019-01-04] MEDS: HYDROCODONE/ACETAMINOPHEN 10/325MG TABLET PO PRN ×3 (01:18→11:45)
[2019-01-04 04:00] VITALS: BP 156/92
[2019-01-04] MEDS: MEROPENEM 1,000 MG in SODIUM CHLORIDE 0.9% 100 ML IV SCH (05:49)
[2019-01-04] MEDS: METOCLOPRAMIDE HCL 10MG/2ML VIAL IV SCH (05:49)
[2019-01-04] MEDS: INSULIN LISPRO 100 UNITS/ML SUBCUT SCH (06:00)
[2019-01-04] MEDS: BLOOD SUGAR DIAGNOSTIC STRIP TEST SCH (06:03)
[2019-01-04 08:00] VITALS: BP 113/71
[2019-01-04] MEDS: AMLODIPINE 5MG TABLET PO SCH (10:11)
[2019-01-04] MEDS: INSULIN GLARGINE UD 100 UNITS/ML SYR SUBCUT SCH (10:12)
[2019-01-04] MEDS: ONDANSETRON HCL 4MG/2ML INJ IV PRN (11:44)
[2019-01-04 12:00] VITALS: BP 125/75
== END 2019-01-04 12:15 | DRG 720 ==
LOC: ER 12:41 → 8WST 17:44 → ENRESERV 19:19
PROVIDERS: ADMIT Internal Medicine; ATTEND Internal Medicine
PROC: 02HV33Z Insertion of Infusion Device into Superior Vena Cava, Percutaneous Approach (ICD-10-PCS; principal; 2018-12-27)
PROC: B5181ZA Fluoroscopy of Superior Vena Cava using Low Osmolar Contrast, Guidance (ICD-10-PCS; 2018-12-27)
PROC: B548ZZA Ultrasonography of Superior Vena Cava, Guidance (ICD-10-PCS; 2018-12-27)
DX: A41.9 Sepsis, unspecified organism (principal); E43 Unspecified severe protein-calorie malnutrition; K85.20 Alcohol induced acute pancreatitis without necrosis or infection; E66.01 Morbid (severe) obesity due to excess calories; E87.1 Hypo-osmolality and hyponatremia; K56.7 Ileus, unspecified; I48.91 Unspecified atrial fibrillation; E86.0 Dehydration; M48.02 Spinal stenosis, cervical region; K86.3 Pseudocyst of pancreas; D25.9 Leiomyoma of uterus, unspecified; E11.9 Type 2 diabetes mellitus without complications; E78.5 Hyperlipidemia, unspecified; I10 Essential (primary) hypertension; J45.909 Unspecified asthma, uncomplicated; J98.11 Atelectasis; Z68.41 Body mass index [BMI] 40.0-44.9, adult; Z88.9 Allergy status to unspecified drugs, medicaments and biological substances; Z90.49 Acquired absence of other specified parts of digestive tract; Z71.3 Dietary counseling and surveillance; E87.6 Hypokalemia; F10.20 Alcohol dependence, uncomplicated
CPT/HCPCS: 36415; 36573; 71045; 74018; 74176; 80048; 80061; 81003; 82150; 82962; 83605; 83880; 84484; 93005; 93306; 97162; 99285; C1725; C1893; J0360; J1170; J1815; J2185; J2270; J2405; J2543; J2765; J3480; J3490; J7030; J7050; J7060

== ENCOUNTER 2020-10-27 11:37 | Inpatient (IN) | payer MEDICAID ==
[~2020-10-27] VITALS: Ht 157.5 cm; Wt 112.9 kg
[2020-10-27] VITALS (21 sets, daily range): BP systolic 83–173; BP diastolic 64–118
[~2020-10-27 11:37] MED LIST changes: +DILT120C88 PO; -GABA-529 PO; +GUAI-793 MT; +HYDR-4009 MT
[2020-10-27] MEDS ORDERED: SODIUM CHLORIDE 0.9% 1000ML BAG (SEPSIS BOLUS) IV ONE (12:15)
[2020-10-27] MEDS ORDERED: MORPHINE SULFATE 4 MG/ML CPJ (NOT FOR IM USE) IV ONE (12:30)
[2020-10-27] MEDS ORDERED: ONDANSETRON HCL 4MG/2ML INJ IV ONE (12:30)
[2020-10-27 12:51] LABS: CHLORIDE 103 mEq/L (98-107)
[2020-10-27 13:01] LABS: HEMATOCRIT. 46.2 % (36.0-48.0); HEMOGLOBIN. 15.3 g/dL (12.0-16.0); MEAN CORPUSCULAR HEMOGLOBIN 34.3 pg (28.0-32.0); MEAN CORPUSCULAR VOLUME 103.6 fL (81.0-99.0); MEAN PLATELET VOLUME 8.2 fl (7.4-10.4); PLATELET 317 x1000/uL (130-400); RED BLOOD CELL COUNT 4.46 mill/uL (4.2-5.4); RED CELL DISTRIBUTION WIDTH 14.2 % (11.6-14.6)
[2020-10-27] MEDS ORDERED: VANCOMYCIN 1 G PREMIX 200 ML IV NR (14:00)
[2020-10-27] MEDS ORDERED: PIPERACILLIN/TAZ 3.375G PREMIX 50 ML IV NR (14:00)
[2020-10-27] MEDS ORDERED: PIPERACILLIN/TAZOBACTAM 3.375GM/50ML PREMIX IV ONE (14:00)
[2020-10-27 14:38] LABS: PLATELET ESTIMATE NORMAL
[2020-10-27] MEDS ORDERED: HYDROMORPHONE HCL/PF 2MG/ML CPJ IV ONE (16:15)
[2020-10-27] MEDS ORDERED: NEOSTIGMINE METHYLSULFATE 1MG/ML 10 ML VIAL ONE (19:14)
[2020-10-27] MEDS ORDERED: ROCURONIUM BROMIDE 10MG/ML VIAL 5ML IV ONE ×3 (19:14→20:06)
[2020-10-27] MEDS ORDERED: MIDAZOLAM HCL 2 MG/2 ML VIAL ONE ×2 (19:14→19:41)
[2020-10-27] MEDS ORDERED: FENTANYL CITRATE/PF 50MCG/ML 2ML VIAL ONE (19:14)
[2020-10-27] MEDS ORDERED: PROPOFOL 200MG/20ML VIAL IV ONE (19:14)
[2020-10-27] MEDS ORDERED: SUCCINYLCHOLINE CHLORIDE 200MG/10ML IV ONE (19:15)
[2020-10-27] MEDS ORDERED: PHENYLEPHRINE HCL 10 MG/ML 1ML (IV VIAL) IV ONE (19:15)
[2020-10-27] MEDS ORDERED: METOCLOPRAMIDE HCL 10MG/2ML VIAL ONE (19:15)
[2020-10-27] MEDS ORDERED: ONDANSETRON HCL 4MG/2ML INJ ONE (19:15)
[2020-10-27] MEDS ORDERED: EPHEDRINE SULFATE 50MG/ML VIAL ONE (19:15)
[2020-10-27] MEDS ORDERED: SODIUM CHLORIDE 0.9% 10ML VIAL ONE (19:15)
[2020-10-27] MEDS ORDERED: ETOMIDATE 2MG/ML 10ML VIAL IV ONE (19:15)
[2020-10-27] MEDS ORDERED: GLYCOPYRROLATE 0.2 MG/ML 2ML VIAL ONE (19:15)
[2020-10-27] MEDS ORDERED: ALBUMIN HUMAN 12.5G/250ML (5%) IV ONE ×2 (19:41→19:45)
[2020-10-27] MEDS ORDERED: NALOXONE HCL 0.4MG/ML VIAL IV PRN (21:15)
[2020-10-27] MEDS ORDERED: ONDANSETRON HCL 4MG/2ML INJ IV PRN (21:15)
[2020-10-27] MEDS: PROPOFOL 10MG/ML 100ML 100 ML IV PRN (22:11)
[2020-10-27] MEDS: FAMOTIDINE 20MG/2ML VIAL IV SCH (22:30)
[2020-10-27] MEDS ORDERED: DEXTROSE 50% WATER 50ML SYRINGE IV PRN (23:15)
[2020-10-27 23:28] LABS: HEMATOCRIT. 42.2 % (36.0-48.0); HEMOGLOBIN. 14.2 g/dL (12.0-16.0); MEAN CORPUSCULAR HEMOGLOBIN 34.2 pg (28.0-32.0); MEAN CORPUSCULAR VOLUME 101.3 fL (81.0-99.0); MEAN PLATELET VOLUME 7.9 fl (7.4-10.4); PLATELET 281 x1000/uL (130-400); RED BLOOD CELL COUNT 4.16 mill/uL (4.2-5.4); RED CELL DISTRIBUTION WIDTH 14.4 % (11.6-14.6)
[2020-10-27] MEDS: DEXT 5%/0.45% NACL KCL 20MEQ/L 1,000 ML IV SCH (23:48)
[2020-10-27] MEDS: MORPHINE SULFATE 4 MG/ML CPJ (NOT FOR IM USE) IV PRN (23:51)
[2020-10-28] VITALS (163 sets, daily range): BP systolic 0–269; BP diastolic 0–121
[2020-10-28] MEDS ORDERED: BLOOD SUGAR DIAGNOSTIC STRIP TEST SCH
[2020-10-28 00:44] LABS: BG BASE EXCESS -7.3 mmol/L (-2.0-2.0); BG CARBOXYHEMOGLOBIN 1.4 % (0.5-1.5); BG DEOXYHEMOGLOBIN 3.9 % (0.0-5.0); BG FRACTION INSPIRED OXYGEN 50; BG HCO3 ACT 18.5 mmol/L (22.0-26.0); BG METHEMOGLOBIN 0.3 % (0.0-1.5); BG OXYHEMOGLOBIN 94.4 % (94.0-97.0); BG PCO2 38.8 mmHg (35.0-45.0); BG PH 7.297 (7.350-7.450); BG PO2 86.8 mmHg (75.0-100.0); BG SAMPLE SITE ALINE; BG TOTAL HEMOGLOBIN 14.2 g/dL (12.0-18.0); BG VENT MODE VENT - AC
[2020-10-28] MEDS: PROPOFOL 10MG/ML 100ML 100 ML IV PRN ×4 (05:10→21:41)
[2020-10-28] MEDS: PIPERACILLIN/TAZOBACTAM 2.25G in DEXTROSE 5% WATER 50ML IV SCH ×4 (05:14→21:41)
[2020-10-28] MEDS: BLOOD SUGAR DIAGNOSTIC STRIP TEST SCH ×4 (05:24→23:41)
[2020-10-28] MEDS: INSULIN LISPRO 100 UNITS/ML SUBCUT SCH ×3 (05:30→18:42)
[2020-10-28] MEDS ORDERED: PIPERACILLIN/TAZOBACTAM 3.375 G/VIAL IV SCH (06:00)
[2020-10-28] MEDS: DEXT 5%/0.45% NACL KCL 20MEQ/L 1,000 ML IV SCH ×2 (08:18→16:23)
[2020-10-28] MEDS ORDERED: INSULIN LISPRO 100 UNITS/ML SUBCUT SCH (08:20)
[2020-10-28 08:57] LABS: HEMATOCRIT. 40.7 % (36.0-48.0); HEMOGLOBIN. 13.6 g/dL (12.0-16.0); MEAN CORPUSCULAR HEMOGLOBIN 33.9 pg (28.0-32.0); MEAN CORPUSCULAR VOLUME 101.5 fL (81.0-99.0); MEAN PLATELET VOLUME 8.8 fl (7.4-10.4); PLATELET 254 x1000/uL (130-400); RED BLOOD CELL COUNT 4.01 mill/uL (4.2-5.4); RED CELL DISTRIBUTION WIDTH 14.4 % (11.6-14.6)
[2020-10-28] MEDS: FAMOTIDINE 20MG/2ML VIAL IV SCH ×2 (09:19→21:42)
[2020-10-28 09:51] LABS: BG BASE EXCESS -6.3 mmol/L (-2.0-2.0); BG CARBOXYHEMOGLOBIN 0.6 % (0.5-1.5); BG HCO3 ACT 17.2 mmol/L (22.0-26.0); BG METHEMOGLOBIN 0.3 % (0.0-1.5); BG OXYHEMOGLOBIN 94.1 % (94.0-97.0); BG PCO2 28.9 mmHg (35.0-45.0); BG PH 7.392 (7.350-7.450); BG PO2 71.2 mmHg (75.0-100.0); BG SAMPLE SITE ALINE; BG TOTAL HEMOGLOBIN 13.8 g/dL (12.0-18.0); BG VENT MODE VENT - CPAP
[2020-10-28] MEDS ORDERED: LIDOCAINE HCL 1% 20ML VIAL (Pyxis) INJ ONE (10:05)
[2020-10-28 11:52] LABS: PLATELET ESTIMATE NORMAL
[2020-10-28] MEDS ORDERED: SODIUM CHLORIDE 0.9% 500 ML IV ONE (12:00)
[2020-10-28 12:18] LABS: CREATINE KINASE 92 IU/L (26-192)
[2020-10-28] MEDS: FENTANYL CITRATE/PF 2,500 MCG in SODIUM CHLORIDE 0.9% 200 ML IV PRN (13:20)
[2020-10-28 18:12] LABS: PLATELET ESTIMATE NORMAL
[2020-10-28] MEDS: ACETAMINOPHEN 325MG TABLET PO PRN (22:15)
[2020-10-29] VITALS (136 sets, daily range): BP systolic 67–203; BP diastolic 42–150
[2020-10-29] MEDS: INSULIN LISPRO 100 UNITS/ML SUBCUT SCH ×4 (00:27→17:15)
[2020-10-29] MEDS ORDERED: SODIUM CHLORIDE 0.9% 500 ML IV ONE (02:15)
[2020-10-29] MEDS ORDERED: NOREPINEPHRINE 8MG/250ML PMX 250 ML IV PRN (02:15)
[2020-10-29] MEDS: PROPOFOL 10MG/ML 100ML 100 ML IV PRN ×5 (02:59→22:18)
[2020-10-29] MEDS: DEXT 5%/0.45% NACL KCL 20MEQ/L 1,000 ML IV SCH (03:19)
[2020-10-29] MEDS: NOREPINEPHRINE 8 MG in DEXTROSE 5% WATER 250 ML IV PRN ×2 (03:20→18:20)
[2020-10-29] MEDS: PIPERACILLIN/TAZOBACTAM 2.25G in DEXTROSE 5% WATER 50ML IV SCH ×4 (03:20→21:56)
[2020-10-29 05:54] LABS: HEMATOCRIT. 34.3 % (36.0-48.0); HEMOGLOBIN. 11.8 g/dL (12.0-16.0); MEAN CORPUSCULAR HEMOGLOBIN 34.2 pg (28.0-32.0); MEAN CORPUSCULAR VOLUME 99.8 fL (81.0-99.0); MEAN PLATELET VOLUME 8.6 fl (7.4-10.4); PLATELET 212 x1000/uL (130-400); RED BLOOD CELL COUNT 3.43 mill/uL (4.2-5.4); RED CELL DISTRIBUTION WIDTH 14.4 % (11.6-14.6)
[2020-10-29] MEDS: BLOOD SUGAR DIAGNOSTIC STRIP TEST SCH ×3 (06:42→17:24)
[2020-10-29] MEDS: IPRATROPIUM/ALBUTEROL 0.5-3(2.5)MG/3ML NEB HHN SCH ×3 (07:40→20:26)
[2020-10-29] MEDS: FAMOTIDINE 20MG/2ML VIAL IV SCH ×2 (08:04→21:55)
[2020-10-29] MEDS: DEXT 5%/0.9% NACL 1,000 ML IV SCH ×2 (09:20→18:18)
[2020-10-29 09:53] LABS: CLARITY URINE CLOUDY (CLEAR); COLOR URINE YELLOW (YELLOW); KETONES URINE NEGATIVE (NEGATIVE); LEUKOCYTE ESTERASE URINE NEGATIVE (NEGATIVE); NITRITE URINE NEGATIVE (NEGATIVE); OCCULT BLOOD URINE 1+ (NEGATIVE); PROTEIN URINE 1+ (NEGATIVE); SPECIFIC GRAVITY URINE 1.016 (1.005-1.030); UROBILINOGEN URINE 0.2 E.U./dL (0.2-1.0)
[2020-10-29 09:57] LABS: BG BASE EXCESS -8.3 mmol/L (-2.0-2.0); BG CARBOXYHEMOGLOBIN 0.6 % (0.5-1.5); BG DEOXYHEMOGLOBIN 1.4 % (0.0-5.0); BG FRACTION INSPIRED OXYGEN 40; BG METHEMOGLOBIN 0.3 % (0.0-1.5); BG OXYGEN SATURATION 98.6 % (92.0-98.5); BG OXYHEMOGLOBIN 97.7 % (94.0-97.0); BG PCO2 34.4 mmHg (35.0-45.0); BG PH 7.311 (7.350-7.450); BG PO2 125.7 mmHg (75.0-100.0); BG SAMPLE SITE ALINE; BG TOTAL HEMOGLOBIN 13.7 g/dL (12.0-18.0); BG VENT MODE VENT - AC
[2020-10-29 13:31] LABS: PLATELET ESTIMATE NORMAL
[2020-10-29] MEDS: MICAFUNGIN 150 MG in SODIUM CHLORIDE 0.9% 100 ML IV SCH (16:14)
[2020-10-29] MEDS: FENTANYL CITRATE/PF 2,500 MCG in SODIUM CHLORIDE 0.9% 200 ML IV PRN (18:19)
[2020-10-30] VITALS (61 sets, daily range): BP systolic 80–206; BP diastolic 45–106
[2020-10-30] MEDS: BLOOD SUGAR DIAGNOSTIC STRIP TEST SCH ×4 (00:14→18:06)
[2020-10-30] MEDS: INSULIN LISPRO 100 UNITS/ML SUBCUT SCH ×4 (00:19→18:00)
[2020-10-30] MEDS: IPRATROPIUM/ALBUTEROL 0.5-3(2.5)MG/3ML NEB HHN SCH ×2 (02:15→08:32)
[2020-10-30] MEDS: PROPOFOL 10MG/ML 100ML 100 ML IV PRN ×3 (03:03→06:48)
[2020-10-30] MEDS: DEXT 5%/0.9% NACL 1,000 ML IV SCH ×2 (04:33→15:23)
[2020-10-30] MEDS: PIPERACILLIN/TAZOBACTAM 2.25G in DEXTROSE 5% WATER 50ML IV SCH ×4 (04:33→21:48)
[2020-10-30 06:43] LABS: HEMATOCRIT. 31.2 % (36.0-48.0); HEMOGLOBIN. 10.8 g/dL (12.0-16.0); MEAN CORPUSCULAR HEMOGLOBIN 34.6 pg (28.0-32.0); MEAN CORPUSCULAR VOLUME 99.9 fL (81.0-99.0); MEAN PLATELET VOLUME 8.7 fl (7.4-10.4); PLATELET 199 x1000/uL (130-400); RED BLOOD CELL COUNT 3.13 mill/uL (4.2-5.4); RED CELL DISTRIBUTION WIDTH 14.1 % (11.6-14.6)
[2020-10-30 08:37] LABS: PLATELET ESTIMATE NORMAL
[2020-10-30] MEDS ORDERED: POTASSIUM CHLORIDE INJ 40 MEQ in DEXT 5% WATER 250 ML IV ONE (09:00)
[2020-10-30] MEDS: FAMOTIDINE 20MG/2ML VIAL IV SCH ×2 (09:04→15:10)
[2020-10-30 10:05] LABS: BG BASE EXCESS -6.5 mmol/L (-2.0-2.0); BG CARBOXYHEMOGLOBIN 0.4 % (0.5-1.5); BG FRACTION INSPIRED OXYGEN 30; BG HCO3 ACT 18.6 mmol/L (22.0-26.0); BG METHEMOGLOBIN 0.4 % (0.0-1.5); BG OXYHEMOGLOBIN 94.2 % (94.0-97.0); BG PCO2 35.5 mmHg (35.0-45.0); BG PEEP (cmH2O) 0 cmH2O; BG PH 7.337 (7.350-7.450); BG PO2 74.4 mmHg (75.0-100.0); BG SAMPLE SITE RIGHT BRACHIAL; BG VENT MODE VENT - CPAP
[2020-10-30] MEDS ORDERED: MAGNESIUM 4 G PREMIX 100 ML IV NR (11:00)
[2020-10-30] MEDS ORDERED: LORAZEPAM 2MG/ML CPJ IV NR (11:30)
[2020-10-30] MEDS: MICAFUNGIN 150 MG in SODIUM CHLORIDE 0.9% 100 ML IV SCH (16:50)
[2020-10-31] VITALS (61 sets, daily range): BP systolic 108–200; BP diastolic 40–131
[2020-10-31] MEDS: INSULIN LISPRO 100 UNITS/ML SUBCUT SCH ×4 (00:58→17:38)
[2020-10-31] MEDS: DEXT 5%/0.9% NACL 1,000 ML IV SCH (01:03)
[2020-10-31] MEDS: PIPERACILLIN/TAZOBACTAM 2.25G in DEXTROSE 5% WATER 50ML IV SCH ×4 (05:22→22:31)
[2020-10-31] MEDS: BLOOD SUGAR DIAGNOSTIC STRIP TEST SCH ×4 (05:23→17:35)
[2020-10-31 05:56] LABS: HEMATOCRIT. 32.8 % (36.0-48.0); HEMOGLOBIN. 10.9 g/dL (12.0-16.0); MEAN CORPUSCULAR HEMOGLOBIN 33.8 pg (28.0-32.0); MEAN CORPUSCULAR VOLUME 101.4 fL (81.0-99.0); MEAN PLATELET VOLUME 8.1 fl (7.4-10.4); PLATELET 227 x1000/uL (130-400); RED BLOOD CELL COUNT 3.23 mill/uL (4.2-5.4); RED CELL DISTRIBUTION WIDTH 14.5 % (11.6-14.6)
[2020-10-31 06:02] LABS: CHLORIDE 122 mEq/L (98-107)
[2020-10-31 07:03] LABS: PLATELET ESTIMATE NORMAL
[2020-10-31] MEDS: MORPHINE SULFATE 4 MG/ML CPJ (NOT FOR IM USE) IV PRN ×2 (08:22→23:20)
[2020-10-31] MEDS: DEXTROSE 5% WATER 1,000 ML IV SCH ×2 (09:19→18:26)
[2020-10-31] MEDS: HYDRALAZINE 20MG/ML VIAL IV PRN ×3 (10:48→23:12)
[2020-10-31] MEDS ORDERED: RISPERIDONE 0.25MG TABLET PO SCH (14:00)
[2020-10-31] MEDS ORDERED: LOSARTAN POTASSIUM 50 MG TABLET PO SCH (14:00)
[2020-10-31 16:09] LABS: PHOSPHORUS 1.7 mg/dL (2.5-4.9)
[2020-10-31] MEDS: ENOXAPARIN 30MG/0.3ML SYR SUBCUT SCH (16:12)
[2020-10-31] MEDS: MICAFUNGIN 150 MG in SODIUM CHLORIDE 0.9% 100 ML IV SCH (16:12)
[2020-10-31] MEDS: FAMOTIDINE 20MG/2ML VIAL IV SCH (16:12)
[2020-10-31] MEDS: LABETALOL 5MG/ML SYR 20 MG/4 ML SYRINGE IV PRN (17:35)
[2020-10-31] MEDS ORDERED: DILTIAZEM HCL 30MG TABLET PO SCH (18:00)
[2020-10-31] MEDS: LORAZEPAM 2MG/ML CPJ IV PRN (21:08)
[2020-11-01] VITALS (14 sets, daily range): BP systolic 134–172; BP diastolic 73–86
[2020-11-01] MEDS: BLOOD SUGAR DIAGNOSTIC STRIP TEST SCH ×4 (01:00→17:11)
[2020-11-01] MEDS: INSULIN LISPRO 100 UNITS/ML SUBCUT SCH ×4 (01:48→17:26)
[2020-11-01] MEDS: ENOXAPARIN 30MG/0.3ML SYR SUBCUT SCH ×2 (02:53→15:24)
[2020-11-01] MEDS: PIPERACILLIN/TAZOBACTAM 2.25G in DEXTROSE 5% WATER 50ML IV SCH ×4 (04:37→22:32)
[2020-11-01] MEDS: DEXTROSE 5% WATER 1,000 ML IV SCH ×2 (04:41→15:25)
[2020-11-01] MEDS: LORAZEPAM 2MG/ML CPJ IV PRN (06:21)
[2020-11-01 09:24] LABS: HEMATOCRIT. 33.7 % (36.0-48.0); HEMOGLOBIN. 11.5 g/dL (12.0-16.0); MEAN CORPUSCULAR HEMOGLOBIN 34.1 pg (28.0-32.0); MEAN CORPUSCULAR VOLUME 100.2 fL (81.0-99.0); MEAN PLATELET VOLUME 8.4 fl (7.4-10.4); PLATELET 289 x1000/uL (130-400); RED BLOOD CELL COUNT 3.36 mill/uL (4.2-5.4); RED CELL DISTRIBUTION WIDTH 14.8 % (11.6-14.6)
[2020-11-01 09:28] LABS: CHLORIDE 111 mEq/L (98-107)
[2020-11-01 09:49] LABS: FOLIC ACID (FOLATE) SERUM 19.8 ng/mL (>5.38)
[2020-11-01 10:46] LABS: NUCLEATED RED BLOOD CELLS 1 /100 WBC; PLATELET ESTIMATE NORMAL
[2020-11-01] MEDS: HYDRALAZINE 20MG/ML VIAL IV PRN (11:27)
[2020-11-01] MEDS: MORPHINE SULFATE 2 MG/ML CPJ (NOT FOR IM USE) IV PRN ×2 (11:54→15:40)
[2020-11-01] MEDS: FAMOTIDINE 20MG/2ML VIAL IV SCH (15:24)
[2020-11-01] MEDS: MICAFUNGIN 150 MG in SODIUM CHLORIDE 0.9% 100 ML IV SCH (15:24)
[2020-11-02] VITALS (12 sets, daily range): BP systolic 124–172; BP diastolic 70–89
[2020-11-02] MEDS: DEXTROSE 5% WATER 1,000 ML IV SCH ×3 (01:19→22:57)
[2020-11-02] MEDS: LABETALOL 5MG/ML SYR 20 MG/4 ML SYRINGE IV PRN (02:02)
[2020-11-02] MEDS: ENOXAPARIN 30MG/0.3ML SYR SUBCUT SCH ×2 (03:51→15:29)
[2020-11-02 05:36] LABS: CHLORIDE 110 mEq/L (98-107)
[2020-11-02] MEDS: PIPERACILLIN/TAZOBACTAM 2.25G in DEXTROSE 5% WATER 50ML IV SCH (05:41)
[2020-11-02] MEDS: HYDRALAZINE 20MG/ML VIAL IV PRN ×2 (06:14→11:27)
[2020-11-02] MEDS: INSULIN LISPRO 100 UNITS/ML SUBCUT SCH ×5 (06:22→23:23)
[2020-11-02] MEDS: BLOOD SUGAR DIAGNOSTIC STRIP TEST SCH ×5 (06:27→23:33)
[2020-11-02 06:55] LABS: HEMATOCRIT. 31.7 % (36.0-48.0); MEAN CORPUSCULAR HEMOGLOBIN 34.4 pg (28.0-32.0); RED CELL DISTRIBUTION WIDTH 14.4 % (11.6-14.6)
[2020-11-02] MEDS: FAMOTIDINE 20MG/2ML VIAL IV SCH (14:17)
[2020-11-02] MEDS: MORPHINE SULFATE 2 MG/ML CPJ (NOT FOR IM USE) IV PRN ×2 (14:18→20:44)
[2020-11-02] MEDS: MICAFUNGIN 150 MG in SODIUM CHLORIDE 0.9% 100 ML IV SCH (15:31)
[2020-11-02 17:06] LABS: MEAN PLATELET VOLUME 9.3 fl (7.4-10.4); PLATELET 146 x1000/uL (130-400); PLATELET ESTIMATE NORMAL
[2020-11-02] MEDS: LORAZEPAM 2MG/ML CPJ IV PRN (20:43)
[2020-11-03] VITALS (18 sets, daily range): BP systolic 129–174; BP diastolic 60–94
[2020-11-03] MEDS: ENOXAPARIN 30MG/0.3ML SYR SUBCUT SCH ×2 (02:00→14:52)
[2020-11-03] MEDS: HYDRALAZINE 20MG/ML VIAL IV PRN (04:55)
[2020-11-03] MEDS: BLOOD SUGAR DIAGNOSTIC STRIP TEST SCH ×4 (06:00→23:24)
[2020-11-03 06:03] LABS: CHLORIDE 108 mEq/L (98-107)
[2020-11-03] MEDS: INSULIN LISPRO 100 UNITS/ML SUBCUT SCH ×4 (06:10→23:42)
[2020-11-03 06:14] LABS: HEMATOCRIT. 34.9 % (36.0-48.0); HEMOGLOBIN. 12.5 g/dL (12.0-16.0); MEAN CORPUSCULAR HEMOGLOBIN 36.4 pg (28.0-32.0); MEAN CORPUSCULAR VOLUME 101.7 fL (81.0-99.0); MEAN PLATELET VOLUME 8.4 fl (7.4-10.4); PLATELET 279 x1000/uL (130-400); RED BLOOD CELL COUNT 3.43 mill/uL (4.2-5.4); RED CELL DISTRIBUTION WIDTH 14.6 % (11.6-14.6)
[2020-11-03] MEDS: DEXTROSE 5% WATER 1,000 ML IV SCH ×2 (08:34→17:22)
[2020-11-03] MEDS: MORPHINE SULFATE 2 MG/ML CPJ (NOT FOR IM USE) IV PRN ×3 (10:37→21:54)
[2020-11-03] MEDS ORDERED: POTASSIUM CHLORIDE INJ 40 MEQ in DEXT 5% WATER 250 ML IV NR (11:00)
[2020-11-03] MEDS: FAMOTIDINE 20MG/2ML VIAL IV SCH (14:51)
[2020-11-03 15:10] LABS: PHOSPHORUS 3.6 mg/dL (2.5-4.9)
[2020-11-03] MEDS: MICAFUNGIN 150 MG in SODIUM CHLORIDE 0.9% 100 ML IV SCH (16:16)
[2020-11-03 20:17] LABS: PLATELET ESTIMATE NORMAL
[2020-11-03] MEDS ORDERED: MAGNESIUM 2 G PREMIX 50 ML IV NR (20:30)
[2020-11-03] MEDS: LORAZEPAM 2MG/ML CPJ IV PRN (21:54)
[2020-11-04] VITALS (17 sets, daily range): BP systolic 140–184; BP diastolic 58–107
[2020-11-04] MEDS: DEXTROSE 5% WATER 1,000 ML IV SCH (01:41)
[2020-11-04] MEDS: ENOXAPARIN 30MG/0.3ML SYR SUBCUT SCH ×2 (02:18→14:39)
[2020-11-04 05:12] LABS: CHLORIDE 107 mEq/L (98-107)
[2020-11-04 05:16] LABS: MEAN CORPUSCULAR HEMOGLOBIN 33.3 pg (28.0-32.0); MEAN CORPUSCULAR VOLUME 100.1 fL (81.0-99.0); MEAN PLATELET VOLUME 8.7 fl (7.4-10.4); PLATELET 373 x1000/uL (130-400); RED BLOOD CELL COUNT 3.11 mill/uL (4.2-5.4); RED CELL DISTRIBUTION WIDTH 14.9 % (11.6-14.6)
[2020-11-04 05:18] LABS: PHOSPHORUS 2.9 mg/dL (2.5-4.9)
[2020-11-04] MEDS: INSULIN LISPRO 100 UNITS/ML SUBCUT SCH ×4 (05:25→23:40)
[2020-11-04] MEDS: BLOOD SUGAR DIAGNOSTIC STRIP TEST SCH ×3 (05:25→18:00)
[2020-11-04] MEDS: HYDRALAZINE 20MG/ML VIAL IV PRN ×3 (06:18→23:47)
[2020-11-04 06:46] LABS: HEMATOCRIT. 31.1 % (36.0-48.0); HEMOGLOBIN. 10.3 g/dL (12.0-16.0)
[2020-11-04] MEDS ORDERED: POTASSIUM CHLORIDE INJ 60 MEQ in SODIUM CHLORIDE 0.9% 500 ML IV NR (08:30)
[2020-11-04] MEDS: MORPHINE SULFATE 2 MG/ML CPJ (NOT FOR IM USE) IV PRN ×3 (10:10→23:49)
[2020-11-04] MEDS: DEXT 5%/0.45% NACL KCL 20MEQ/L 1,000 ML IV SCH (13:16)
[2020-11-04] MEDS ORDERED: DIATR MEGLU/DIATRIZOATE SOLN 120ML ONE (13:34)
[2020-11-04] MEDS: FAMOTIDINE 20MG/2ML VIAL IV SCH (14:38)
[2020-11-04 17:10] LABS: PLATELET ESTIMATE NORMAL
[2020-11-04] MEDS: MICAFUNGIN 150 MG in SODIUM CHLORIDE 0.9% 100 ML IV SCH (21:13)
[2020-11-05] VITALS (12 sets, daily range): BP systolic 146–178; BP diastolic 59–85
[2020-11-05] MEDS: ENOXAPARIN 30MG/0.3ML SYR SUBCUT SCH ×2 (02:29→15:52)
[2020-11-05] MEDS: INSULIN LISPRO 100 UNITS/ML SUBCUT SCH ×3 (05:46→18:50)
[2020-11-05] MEDS: BLOOD SUGAR DIAGNOSTIC STRIP TEST SCH ×4 (06:00→18:43)
[2020-11-05 07:33] LABS: HEMATOCRIT. 32.2 % (36.0-48.0); HEMOGLOBIN. 10.7 g/dL (12.0-16.0); MEAN CORPUSCULAR HEMOGLOBIN 33.8 pg (28.0-32.0); MEAN CORPUSCULAR VOLUME 101.4 fL (81.0-99.0); MEAN PLATELET VOLUME 8.8 fl (7.4-10.4); PLATELET 394 x1000/uL (130-400); RED BLOOD CELL COUNT 3.18 mill/uL (4.2-5.4); RED CELL DISTRIBUTION WIDTH 14.6 % (11.6-14.6)
[2020-11-05 07:49] LABS: CHLORIDE 107 mEq/L (98-107)
[2020-11-05 07:58] LABS: PHOSPHORUS 2.7 mg/dL (2.5-4.9)
[2020-11-05 08:23] LABS: PLATELET ESTIMATE NORMAL
[2020-11-05] MEDS: MORPHINE SULFATE 2 MG/ML CPJ (NOT FOR IM USE) IV PRN (08:40)
[2020-11-05] MEDS ORDERED: POTASSIUM CHLORIDE INJ 40 MEQ in DEXT 5% WATER 250 ML IV NR (11:00)
[2020-11-05] MEDS ORDERED: NALOXONE HCL 0.4MG/ML VIAL IV PRN (11:00)
[2020-11-05] MEDS: HYDRALAZINE 20MG/ML VIAL IV PRN (11:48)
[2020-11-05] MEDS: MORPHINE SULFATE 4 MG/ML CPJ (NOT FOR IM USE) IV PRN (14:35)
[2020-11-05] MEDS: PANTOPRAZOLE SODIUM 40 MG/VIAL IV SCH (15:51)
[2020-11-05] MEDS: MICAFUNGIN 150 MG in SODIUM CHLORIDE 0.9% 100 ML IV SCH (15:52)
[2020-11-05] MEDS: DEXT 5%/0.45% NACL KCL 20MEQ/L 1,000 ML IV SCH ×2 (15:53→20:20)
[2020-11-06] VITALS (8 sets, daily range): BP systolic 142–188; BP diastolic 71–110
[2020-11-06] MEDS: ENOXAPARIN 30MG/0.3ML SYR SUBCUT SCH ×2 (03:00→15:29)
[2020-11-06] MEDS: BLOOD SUGAR DIAGNOSTIC STRIP TEST SCH ×4 (05:55→18:55)
[2020-11-06] MEDS: INSULIN LISPRO 100 UNITS/ML SUBCUT SCH ×4 (05:55→18:56)
[2020-11-06] MEDS: ACETAMINOPHEN 325MG TABLET PO PRN (06:38)
[2020-11-06] MEDS: MORPHINE SULFATE 4 MG/ML CPJ (NOT FOR IM USE) IV PRN ×2 (06:42→15:31)
[2020-11-06] MEDS: PANTOPRAZOLE SODIUM 40 MG/VIAL IV SCH (08:48)
[2020-11-06 09:52] LABS: BASOPHILS % 0.4 % (0.0-2.0); EOSINOPHILS % 1.6 % (0.0-5.0); HEMATOCRIT. 31.3 % (36.0-48.0); HEMOGLOBIN. 10.4 g/dL (12.0-16.0); LYMPHOCYTES % 13.4 % (20.0-50.0); MEAN CORPUSCULAR HEMOGLOBIN 33.3 pg (28.0-32.0); MEAN PLATELET VOLUME 8.4 fl (7.4-10.4); MONOCYTES % 10.8 % (2.0-8.0); NEUTROPHILS % 73.8 % (40.0-76.0); PLATELET 419 x1000/uL (130-400); RED BLOOD CELL COUNT 3.14 mill/uL (4.2-5.4); RED CELL DISTRIBUTION WIDTH 14.7 % (11.6-14.6)
[2020-11-06 10:31] LABS: CHLORIDE 108 mEq/L (98-107)
[2020-11-06] MEDS ORDERED: POTASSIUM CHLORIDE 20MEQ TABLET SR PO NR (11:00)
[2020-11-06] MEDS: HYDRALAZINE 20MG/ML VIAL IV PRN (12:20)
[2020-11-07] MEDS: MORPHINE SULFATE 4 MG/ML CPJ (NOT FOR IM USE) IV PRN ×2 (00:02→06:52)
[2020-11-07] MEDS: ENOXAPARIN 30MG/0.3ML SYR SUBCUT SCH ×2 (02:56→15:07)
[2020-11-07] MEDS: BLOOD SUGAR DIAGNOSTIC STRIP TEST SCH ×4 (06:00→18:06)
[2020-11-07] MEDS: INSULIN LISPRO 100 UNITS/ML SUBCUT SCH ×4 (06:00→18:00)
[2020-11-07] MEDS: PANTOPRAZOLE SODIUM 40 MG/VIAL IV SCH (09:55)
[2020-11-07] MEDS: HYDRALAZINE 20MG/ML VIAL IV PRN (13:55)
[2020-11-07 14:00] VITALS: BP 170/91
[2020-11-07] MEDS: ACETAMINOPHEN 325MG TABLET PO PRN (15:18)
[2020-11-07] MEDS ORDERED: HYDROCODONE/ACETAMINOPHEN 5/325MG TABLET PO PRN (15:45)
[2020-11-07 15:55] VITALS: BP 157/64
[2020-11-07 20:00] VITALS: BP 140/67
[2020-11-07 22:00] VITALS: BP 129/64
[2020-11-08] VITALS: BP 137/70
[2020-11-08] MEDS: HYDROCODONE/ACETAMINOPHEN 5/325MG TABLET PO PRN ×2 (00:49→10:06)
[2020-11-08 02:00] VITALS: BP 134/77
[2020-11-08] MEDS: ENOXAPARIN 30MG/0.3ML SYR SUBCUT SCH ×2 (03:00→15:00)
[2020-11-08 04:00] VITALS: BP 156/78
[2020-11-08] MEDS: BLOOD SUGAR DIAGNOSTIC STRIP TEST SCH ×3 (05:23→12:25)
[2020-11-08] MEDS: INSULIN LISPRO 100 UNITS/ML SUBCUT SCH ×3 (06:52→12:36)
[2020-11-08 08:00] VITALS: BP 136/56
[2020-11-08] MEDS: PANTOPRAZOLE SODIUM 40 MG/VIAL IV SCH (09:45)
[2020-11-08 10:18] LABS: EOSINOPHILS % 2.4 % (0.0-5.0); HEMATOCRIT. 31.1 % (36.0-48.0); HEMOGLOBIN. 10.5 g/dL (12.0-16.0); LYMPHOCYTES % 12.8 % (20.0-50.0); MEAN CORPUSCULAR HEMOGLOBIN 33.4 pg (28.0-32.0); MEAN PLATELET VOLUME 8.7 fl (7.4-10.4); MONOCYTES % 8.6 % (2.0-8.0); NEUTROPHILS % 76.2 % (40.0-76.0); PLATELET 493 x1000/uL (130-400); RED BLOOD CELL COUNT 3.14 mill/uL (4.2-5.4); RED CELL DISTRIBUTION WIDTH 14.3 % (11.6-14.6)
[2020-11-08 10:24] LABS: CHLORIDE 107 mEq/L (98-107)
[2020-11-08] MEDS ORDERED: POTASSIUM CHLORIDE 20MEQ TABLET SR PO NR (11:30)
[2020-11-08] MEDS ORDERED: HYDR-4001 MT (11:43)
[2020-11-08] MEDS ORDERED: ACET325T52 MT (11:43)
[2020-11-08] MEDS ORDERED: PANT40TA51 MT (11:43)
[2020-11-08 12:00] VITALS: BP 142/75
[2020-11-08 14:03] VITALS: BP 142/78
== END 2020-11-08 16:18 | disposition home health service (06) | DRG 710 ==
LOC: ER 11:37 → CVICU 16:01 → EDBEDREQ 16:19 → EDBEDREQTM 16:19 → ENRESERV 20:33 → 5EST 11-01 03:40
PROVIDERS: ADMIT Internal Medicine; ATTEND Internal Medicine
PROC: 5A1945Z Respiratory Ventilation, 24-96 Consecutive Hours (ICD-10-PCS; 2020-10-27)
PROC: 0BH17EZ Insertion of Endotracheal Airway into Trachea, Via Natural or Artificial Opening (ICD-10-PCS; 2020-10-27)
PROC: 02HV33Z Insertion of Infusion Device into Superior Vena Cava, Percutaneous Approach (ICD-10-PCS; 2020-10-28)
PROC: B548ZZA Ultrasonography of Superior Vena Cava, Guidance (ICD-10-PCS; 2020-10-28)
PROC: 0DU907Z Supplement Duodenum with Autologous Tissue Substitute, Open Approach (ICD-10-PCS; principal; 2020-10-29)
PROC: 0W9G0ZZ Drainage of Peritoneal Cavity, Open Approach (ICD-10-PCS; 2020-10-29)
DX: A41.9 Sepsis, unspecified organism (principal); J96.01 Acute respiratory failure with hypoxia; N17.0 Acute kidney failure with tubular necrosis; K26.5 Chronic or unspecified duodenal ulcer with perforation; E83.51 Hypocalcemia; E87.0 Hyperosmolality and hypernatremia; R18.8 Other ascites; D53.9 Nutritional anemia, unspecified; E11.22 Type 2 diabetes mellitus with diabetic chronic kidney disease; E87.2 Acidosis; E87.1 Hypo-osmolality and hyponatremia; K66.0 Peritoneal adhesions (postprocedural) (postinfection); Z20.822 Contact with and (suspected) exposure to COVID-19; E83.42 Hypomagnesemia; I13.10 Hypertensive heart and chronic kidney disease without heart failure, with stage 1 through stage 4 chronic kidney disease, or unspecified chronic kidney disease; J45.909 Unspecified asthma, uncomplicated; K25.9 Gastric ulcer, unspecified as acute or chronic, without hemorrhage or perforation; K59.00 Constipation, unspecified; K82.8 Other specified diseases of gallbladder; K86.1 Other chronic pancreatitis; N18.9 Chronic kidney disease, unspecified; E86.0 Dehydration; E66.01 Morbid (severe) obesity due to excess calories; Z82.49 Family history of ischemic heart disease and other diseases of the circulatory system; Z79.899 Other long term (current) drug therapy; Z83.3 Family history of diabetes mellitus; Z88.8 Allergy status to other drugs, medicaments and biological substances; Z90.49 Acquired absence of other specified parts of digestive tract; Z68.42 Body mass index [BMI] 45.0-49.9, adult
CPT/HCPCS: 36415; 36600; 71045; 71250; 74018; 74176; 76937; 80048; 80053; 81003; 82140; 82375; 82550; 82607; 82746; 82805; 82962; 83036; 83605; 83735; 83880; 84100; 84132; 84145; 84295; 84478; 84484; 85025; 87070; 87075; 87426; 93005; 93970; 94003; 94640; 97162; 97530; 99291; A6261; C1725; C9113; J0330; J0360; J1170; J1650; J1815; J2060; J2248; J2250; J2270; J2370; J2405; J2543; J2704; J2710; J2765; J3010; J3370; J3475; J3480; J3490; J7030; J7040; J7042; J7050; J7060; J7070; P9041; Q9963

== ENCOUNTER 2020-11-24 13:38 | Emergency (ER) | payer MEDICAID ==
[~2020-11-24] VITALS: Ht 157.5 cm; Wt 104.2 kg
[~2020-11-24 13:38] MED LIST changes: +ACET325T52 MT; -DILT120C88 PO; -GUAI-793 MT; +HYDR-4001 MT; -HYDR-4009 MT; +PANT40TA51 MT
[2020-11-24] MEDS ORDERED: ACET-2708 MT (15:18)
[2020-11-24 15:27] VITALS: BP 161/92
[2020-11-24] MEDS ORDERED: HYDR-4001 MT ×2 (15:32)
== END 2020-11-24 16:32 | disposition home or self-care (01) ==
LOC: ER 13:38
DX: R10.9 Unspecified abdominal pain (principal); E11.9 Type 2 diabetes mellitus without complications; I10 Essential (primary) hypertension; Z98.890 Other specified postprocedural states; Z88.8 Allergy status to other drugs, medicaments and biological substances; Z90.49 Acquired absence of other specified parts of digestive tract
CPT/HCPCS: 99281

== ENCOUNTER 2021-03-22 14:06 | Inpatient (IN) | payer MEDICAID ==
[~2021-03-22] VITALS: Ht 167.6 cm; Wt 88.0 kg
[~2021-03-22 14:06] MED LIST changes: +ACET-2708 MT
[2021-03-22] MEDS ORDERED: SODIUM CHLORIDE 0.9% 1,000 ML IV ONE (15:00)
[2021-03-22] MEDS ORDERED: MORPHINE SULFATE 4 MG/ML CPJ (NOT FOR IM USE) IV ONE (15:00)
[2021-03-22] MEDS ORDERED: DILTIAZEM HCL 5MG/ML 5ML VIAL IV ONE (15:15)
[2021-03-22] MEDS ORDERED: DILTIAZEM HCL 30MG TABLET PO ONE (17:30)
[2021-03-22 17:53] LABS: CLARITY URINE CLEAR (CLEAR); COLOR URINE YELLOW (YELLOW); KETONES URINE 1+ (NEGATIVE); LEUKOCYTE ESTERASE URINE TRACE (NEGATIVE); NITRITE URINE NEGATIVE (NEGATIVE); OCCULT BLOOD URINE NEGATIVE (NEGATIVE); PROTEIN URINE NEGATIVE (NEGATIVE); SPECIFIC GRAVITY URINE 1.011 (1.005-1.030); UROBILINOGEN URINE 0.2 E.U./dL (0.2-1.0)
[2021-03-22 17:54] LABS: BASOPHILS % 0.4 % (0.0-2.0); EOSINOPHILS % 0.1 % (0.0-5.0); HEMATOCRIT. 43.3 % (36.0-48.0); HEMOGLOBIN. 14.2 g/dL (12.0-16.0); LYMPHOCYTES % 12.3 % (20.0-50.0); MEAN CORPUSCULAR HEMOGLOBIN 30.2 pg (28.0-32.0); MEAN CORPUSCULAR VOLUME 91.9 fL (81.0-99.0); MONOCYTES % 9.6 % (2.0-8.0); NEUTROPHILS % 77.6 % (40.0-76.0); RED BLOOD CELL COUNT 4.72 mill/uL (4.2-5.4)
[2021-03-22 17:55] LABS: CHLORIDE 105 mEq/L (98-107)
[2021-03-22 18:19] LABS: MEAN PLATELET VOLUME 8.8 fl (7.4-10.4); PLATELET 179 x1000/uL (130-400)
[2021-03-22] MEDS ORDERED: LORAZEPAM 2MG/ML CPJ IV PRN (21:45)
[2021-03-22] MEDS ORDERED: DOCUSATE SODIUM 100MG CAPSULE PO PRN (21:45)
[2021-03-22] MEDS ORDERED: ONDANSETRON HCL 4MG/2ML INJ IV PRN (21:45)
[2021-03-22] MEDS ORDERED: NALOXONE HCL 0.4MG/ML VIAL IV PRN (22:30)
[2021-03-22] MEDS: THIAMINE HCL 100MG TABLET PO SCH (22:44)
[2021-03-22] MEDS: HYDROCODONE/ACETAMINOPHEN 5/325MG TABLET PO PRN (22:45)
[2021-03-22] MEDS: MORPHINE SULFATE 2 MG/ML CPJ (NOT FOR IM USE) IV PRN (22:46)
[2021-03-22] MEDS ORDERED: ENOXAPARIN 40MG/0.4ML SYR SUBCUT SCH (23:00)
[2021-03-23 00:26] LABS: CREATINE KINASE MB FRACTION 2.3 ng/mL (0.5-3.6)
[2021-03-23] MEDS: HYDROCODONE/ACETAMINOPHEN 5/325MG TABLET PO PRN ×2 (06:33→16:43)
[2021-03-23] MEDS: MORPHINE SULFATE 2 MG/ML CPJ (NOT FOR IM USE) IV PRN (06:34)
[2021-03-23] MEDS ORDERED: ASPIRIN 81MG EC TABLET PO SCH (09:00)
[2021-03-23] MEDS: THIAMINE HCL 100MG TABLET PO SCH (09:09)
[2021-03-23] MEDS ORDERED: AMIODARONE HCL 200 MG TABLET PO SCH (12:15)
[2021-03-23 12:18] LABS: *AMPHETAMINES SCREEN URINE NEGATIVE (NEGATIVE); *BARBITURATES SCREEN URINE NEGATIVE (NEGATIVE); *BENZODIAZEPINES SCREEN URINE NEGATIVE (NEGATIVE); *COCAINE SCREEN URINE NEGATIVE (NEGATIVE); METHADONE URINE SCREEN NEGATIVE (NEGATIVE); OPIATES URINE SCREEN PRESUMTIVE POSITIVE (NEGATIVE)
[2021-03-23 12:19] LABS: CANNABINOID URINE SCREEN NEGATIVE (NEGATIVE); PHENCYCLIDINE URINE SCREEN NEGATIVE (NEGATIVE)
[2021-03-23] MEDS ORDERED: DILTIAZEM HCL 120MG CAPSULE CD 24HR PO SCH (12:30)
[2021-03-23 12:45] LABS: BASOPHILS % 1.5 % (0.0-2.0); EOSINOPHILS % 4.6 % (0.0-5.0); HEMATOCRIT. 38.6 % (36.0-48.0); HEMOGLOBIN. 12.8 g/dL (12.0-16.0); LYMPHOCYTES % 38.4 % (20.0-50.0); MEAN CORPUSCULAR HEMOGLOBIN 30.8 pg (28.0-32.0); MEAN CORPUSCULAR VOLUME 92.9 fL (81.0-99.0); MEAN PLATELET VOLUME 8.5 fl (7.4-10.4); MONOCYTES % 6.6 % (2.0-8.0); NEUTROPHILS % 48.9 % (40.0-76.0); PLATELET 239 x1000/uL (130-400); RED BLOOD CELL COUNT 4.15 mill/uL (4.2-5.4); RED CELL DISTRIBUTION WIDTH 16.6 % (11.6-14.6)
[2021-03-23 12:46] LABS: CHLORIDE 104 mEq/L (98-107)
[2021-03-23 12:58] LABS: CREATINE KINASE 90 IU/L (26-192)
[2021-03-23 13:00] LABS: CREATINE KINASE MB FRACTION 1.4 ng/mL (0.5-3.6)
[2021-03-23 20:45] VITALS: BP 162/62
[2021-03-24] MEDS ORDERED: DEXTROSE 50% WATER 50ML SYRINGE IV PRN (15:00)
[2021-03-24] MEDS ORDERED: BLOOD SUGAR DIAGNOSTIC STRIP TEST SCH (16:30)
[2021-03-24] MEDS ORDERED: INSULIN LISPRO 100 UNITS/ML SUBCUT SCH (17:00)
== END 2021-03-24 02:28 | disposition left against medical advice (07) | DRG 201 ==
LOC: ER 14:14 → EDBEDREQ 19:10 → MICUSO 03-23 02:28
PROVIDERS: ADMIT Internal Medicine Nephrology; ATTEND Internal Medicine Nephrology
DX: I48.19 Other persistent atrial fibrillation (principal); I11.9 Hypertensive heart disease without heart failure; E11.9 Type 2 diabetes mellitus without complications; I47.1 Supraventricular tachycardia; J98.11 Atelectasis; E78.5 Hyperlipidemia, unspecified; R07.89 Other chest pain; Z20.822 Contact with and (suspected) exposure to COVID-19; Z53.21 Procedure and treatment not carried out due to patient leaving prior to being seen by health care provider; E66.9 Obesity, unspecified; Z87.11 Personal history of peptic ulcer disease; Z82.49 Family history of ischemic heart disease and other diseases of the circulatory system; Z83.3 Family history of diabetes mellitus; Z87.891 Personal history of nicotine dependence; Z79.899 Other long term (current) drug therapy; Z68.31 Body mass index [BMI] 31.0-31.9, adult
CPT/HCPCS: 36415; 71045; 80048; 80053; 80305; 81003; 82550; 82553; 83735; 83880; 84443; 84484; 85025; 86850; 86900; 87426; 93005; 99285; J1650; J2270; J3490; J7030

== ENCOUNTER 2021-10-21 14:11 | Inpatient (IN) | payer MEDICARE, MEDICAID ==
[~2021-10-21] VITALS: Ht 165.1 cm; Wt 81.7 kg
[2021-10-21 14:56] LABS: BASOPHILS % 1.2 % (0.0-2.0); EOSINOPHILS % 0.9 % (0.0-5.0); HEMATOCRIT. 35.9 % (36.0-48.0); HEMOGLOBIN. 12.2 g/dL (12.0-16.0); LYMPHOCYTES % 24.6 % (20.0-50.0); MEAN CORPUSCULAR HEMOGLOBIN 32.7 pg (28.0-32.0); MEAN CORPUSCULAR VOLUME 96.2 fL (81.0-99.0); MEAN PLATELET VOLUME 8.1 fl (7.4-10.4); MONOCYTES % 7.4 % (2.0-8.0); NEUTROPHILS % 65.9 % (40.0-76.0); PLATELET 430 x1000/uL (130-400); RED BLOOD CELL COUNT 3.73 mill/uL (4.2-5.4); RED CELL DISTRIBUTION WIDTH 14.9 % (11.6-14.6)
[2021-10-21 15:04] LABS: CHLORIDE 101 mEq/L (98-107)
[2021-10-21] MEDS ORDERED: ONDANSETRON HCL 4MG/2ML INJ IV STA (16:43)
[2021-10-21] MEDS ORDERED: MORPHINE SULFATE 4 MG/ML CPJ (NOT FOR IM USE) IV STA (16:43)
[2021-10-21] MEDS ORDERED: SODIUM CHLORIDE 0.9% 1,000 ML IV ONE (16:45)
[2021-10-21 18:42] LABS: CLARITY URINE CLEAR (CLEAR); COLOR URINE YELLOW (YELLOW); KETONES URINE NEGATIVE (NEGATIVE); LEUKOCYTE ESTERASE URINE NEGATIVE (NEGATIVE); NITRITE URINE NEGATIVE (NEGATIVE); OCCULT BLOOD URINE NEGATIVE (NEGATIVE); PROTEIN URINE NEGATIVE (NEGATIVE); SPECIFIC GRAVITY URINE 1.029 (1.005-1.030)
[2021-10-21] MEDS ORDERED: IPRATROPIUM/ALBUTEROL 0.5-3(2.5)MG/3ML NEB NEB PRN (20:00)
[2021-10-21] MEDS ORDERED: CLONIDINE 0.1MG TABLET PO PRN (20:00)
[2021-10-21] MEDS ORDERED: ONDANSETRON HCL 4MG/2ML INJ IV PRN (20:00)
[2021-10-21] MEDS ORDERED: ACETAMINOPHEN 325MG TABLET PO PRN (20:00)
[2021-10-21] MEDS ORDERED: NA PHOS,M-B/NA PHOS,DI-BA ENEMA 118ML PR PRN (20:00)
[2021-10-21] MEDS ORDERED: MAGNESIUM/ALUMINUM HYDROXIDE/SIMETHICONE 30ML UDC PO PRN (20:00)
[2021-10-21] MEDS ORDERED: NITROGLYCERIN 0.4MG TABLET SL SL PRN (20:00)
[2021-10-21] MEDS ORDERED: DEXTROSE 50% WATER 50ML SYRINGE IV PRN (20:00)
[2021-10-21] MEDS ORDERED: GUAIFENESIN 200MG/10ML SUGAR FREE UDC PO PRN (20:00)
[2021-10-21] MEDS ORDERED: NALOXONE HCL 0.4MG/ML VIAL IV PRN (20:30)
[2021-10-21] MEDS ORDERED: ZOLPIDEM TARTRATE 5MG TABLET PO PRN (21:00)
[2021-10-21] MEDS: ENOXAPARIN 40MG/0.4ML SYR SUBCUT SCH (21:00)
[2021-10-21] MEDS: SODIUM CHLORIDE 0.9% 1,000 ML IV SCH (21:29)
[2021-10-21 21:38] LABS: ETHANOL BLOOD < 10 mg/dL; HDL CHOLESTEROL 47 mg/dL (40-59); LDL CHOLESTEROL 59 mg/dL (5-100); TOTAL IRON BINDING CAPACITY 208 ug/dL (250-450)
[2021-10-21 21:54] LABS: FOLIC ACID (FOLATE) SERUM 1.9 ng/mL (>5.38)
[2021-10-21] MEDS: BLOOD SUGAR DIAGNOSTIC STRIP TEST SCH (21:59)
[2021-10-21] MEDS ORDERED: INSULIN GLARGINE 100 UNITS/ML SUBCUT SCH (22:00)
[2021-10-21 22:15] VITALS: BP 125/85
[2021-10-21] MEDS: INSULIN LISPRO 100 UNITS/ML SUBCUT SCH (22:30)
[2021-10-22] VITALS: BP 126/84
[2021-10-22] MEDS: INSULIN GLARGINE 100 UNITS/ML SUBCUT SCH
[2021-10-22] MEDS ORDERED: FOLIC ACID 1 MG, THIAMINE HCL 100 MG, MVI, ADULT NO.1 10 ML in DEXTROSE 5% WATER 1,000 ML IV ONE ×4 (01:00)
[2021-10-22] MEDS: KETOROLAC 15MG/ML VIAL IV PRN ×3 (02:22→23:54)
[2021-10-22 04:00] VITALS: BP 122/82
[2021-10-22] MEDS: BLOOD SUGAR DIAGNOSTIC STRIP TEST SCH ×4 (06:29→21:00)
[2021-10-22] MEDS: SODIUM CHLORIDE 0.9% 1,000 ML IV SCH ×2 (06:29→15:52)
[2021-10-22 08:00] VITALS: BP 124/60
[2021-10-22] MEDS: PANTOPRAZOLE SODIUM 40 MG/VIAL IV SCH (08:24)
[2021-10-22] MEDS: INSULIN LISPRO 100 UNITS/ML SUBCUT SCH ×4 (08:35→21:50)
[2021-10-22 12:00] VITALS: BP 121/55
[2021-10-22 16:00] VITALS: BP 106/46
[2021-10-22] MEDS ORDERED: TRAMADOL 50MG TABLET PO PRN (16:00)
[2021-10-22 20:00] VITALS: BP 119/56
[2021-10-22] MEDS: ENOXAPARIN 40MG/0.4ML SYR SUBCUT SCH (23:21)
[2021-10-23] MEDS: SODIUM CHLORIDE 0.9% 1,000 ML IV SCH ×3 (02:00→22:00)
[2021-10-23 04:00] VITALS: BP 138/73
[2021-10-23] MEDS: BLOOD SUGAR DIAGNOSTIC STRIP TEST SCH ×4 (07:20→21:00)
[2021-10-23] MEDS: INSULIN LISPRO 100 UNITS/ML SUBCUT SCH ×4 (07:50→22:45)
[2021-10-23] MEDS: PANTOPRAZOLE SODIUM 40 MG/VIAL IV SCH (09:00)
[2021-10-23] MEDS: KETOROLAC 15MG/ML VIAL IV PRN (10:20)
[2021-10-23] MEDS: TRAMADOL 50MG TABLET PO PRN (15:52)
[2021-10-23] MEDS: DOCUSATE SODIUM 100MG CAPSULE PO PRN (17:13)
[2021-10-23] MEDS: ACETAMINOPHEN 325MG TABLET PO PRN (17:20)
[2021-10-23 20:00] VITALS: BP 121/57
[2021-10-23] MEDS: ENOXAPARIN 40MG/0.4ML SYR SUBCUT SCH (21:00)
[2021-10-23] MEDS: INSULIN GLARGINE 100 UNITS/ML SUBCUT SCH (22:00)
[2021-10-24] MEDS: BLOOD SUGAR DIAGNOSTIC STRIP TEST SCH ×4 (07:20→21:44)
[2021-10-24] MEDS: INSULIN LISPRO 100 UNITS/ML SUBCUT SCH ×4 (07:50→21:35)
[2021-10-24 08:00] VITALS: BP 120/98
[2021-10-24] MEDS: SODIUM CHLORIDE 0.9% 1,000 ML IV SCH (08:00)
[2021-10-24] MEDS: TRAMADOL 50MG TABLET PO PRN ×3 (09:35→16:43)
[2021-10-24] MEDS: PANTOPRAZOLE SODIUM 40 MG/VIAL IV SCH (09:35)
[2021-10-24 10:52] LABS: PARTIAL THROMBOPLASTIN TIME 30.2 sec (23.4-31.0); PROTHROMBIN TIME 11.1 sec (9.6-11.0)
[2021-10-24 12:00] VITALS: BP 130/58
[2021-10-24 16:00] VITALS: BP 138/61
[2021-10-24] MEDS: ACETAMINOPHEN 325MG TABLET PO PRN (21:39)
[2021-10-25] MEDS: INSULIN GLARGINE 100 UNITS/ML SUBCUT SCH ×2 (00:03→22:00)
[2021-10-25] MEDS: ENOXAPARIN 40MG/0.4ML SYR SUBCUT SCH ×2 (00:06→21:00)
[2021-10-25] MEDS: TRAMADOL 50MG TABLET PO PRN ×2 (00:16→09:11)
[2021-10-25] MEDS: BLOOD SUGAR DIAGNOSTIC STRIP TEST SCH ×4 (07:20→21:00)
[2021-10-25] MEDS: INSULIN LISPRO 100 UNITS/ML SUBCUT SCH ×4 (07:50→21:00)
[2021-10-25 08:00] VITALS: BP 119/55
[2021-10-25] MEDS: DOCUSATE SODIUM 100MG CAPSULE PO PRN (08:56)
[2021-10-25] MEDS: PANTOPRAZOLE SODIUM 40 MG/VIAL IV SCH (09:00)
[2021-10-25] MEDS: POLYVINYL ALCOHOL OPHTH DROPS 15ML BOTHEYE SCH ×2 (13:54→17:54)
[2021-10-25] MEDS: SODIUM CHLORIDE 0.9% 1,000 ML IV SCH (13:58)
[2021-10-26] VITALS (17 sets, daily range): BP systolic 131–166; BP diastolic 65–84
[2021-10-26] MEDS: BLOOD SUGAR DIAGNOSTIC STRIP TEST SCH ×4 (07:01→21:06)
[2021-10-26] MEDS: TRAMADOL 50MG TABLET PO PRN (07:06)
[2021-10-26] MEDS: INSULIN LISPRO 100 UNITS/ML SUBCUT SCH ×4 (07:24→21:05)
[2021-10-26] MEDS: PANTOPRAZOLE SODIUM 40 MG/VIAL IV SCH (08:00)
[2021-10-26] MEDS: POLYVINYL ALCOHOL OPHTH DROPS 15ML BOTHEYE SCH (08:01)
[2021-10-26] MEDS: DOCUSATE SODIUM 100MG CAPSULE PO PRN (08:11)
[2021-10-26] MEDS ORDERED: FENTANYL CITRATE/PF 50MCG/ML 2ML VIAL ONE ×2 (09:56→12:25)
[2021-10-26] MEDS ORDERED: LIDOCAINE HCL/PF 1% 10 MG/ML 5ML VIAL ONE ×2 (09:56→10:27)
[2021-10-26] MEDS ORDERED: MIDAZOLAM HCL 2 MG/2 ML VIAL ONE (09:56)
[2021-10-26] MEDS: SODIUM CHLORIDE 0.9% 1,000 ML IV SCH ×2 (10:00→21:02)
[2021-10-26] MEDS ORDERED: SODIUM BICARBONATE 4% (2.4MEQ) 5ML VIAL IV ONE (11:13)
[2021-10-26] MEDS: MORPHINE SULFATE 2 MG/ML CPJ (NOT FOR IM USE) IV PRN ×3 (11:33→21:07)
[2021-10-26] MEDS ORDERED: FENTANYL CITRATE/PF 50MCG/ML 2ML VIAL IV SCH ×2 (12:00→12:15)
[2021-10-26] MEDS ORDERED: MIDAZOLAM HCL 2 MG/2 ML VIAL IV ONE (12:00)
[2021-10-26] MEDS ORDERED: FLUCONAZOLE 100MG TABLET PO SCH (15:30)
[2021-10-26] MEDS ORDERED: FLUCONAZOLE 100MG TABLET PO NR (15:30)
[2021-10-26] MEDS ORDERED: NALOXONE HCL 0.4MG/ML VIAL IV PRN (21:00)
[2021-10-26] MEDS: INSULIN GLARGINE 100 UNITS/ML SUBCUT SCH (21:04)
[2021-10-26] MEDS: ENOXAPARIN 40MG/0.4ML SYR SUBCUT SCH (21:06)
[2021-10-26] MEDS: PIPERACILLIN/TAZOBACTAM 3.375 G in DEXTROSE 5% WATER 50 ML IV SCH ×2 (23:31→23:32)
[2021-10-27] VITALS: BP 128/67
[2021-10-27] MEDS: MORPHINE SULFATE 2 MG/ML CPJ (NOT FOR IM USE) IV PRN ×3 (01:48→10:37)
[2021-10-27 04:00] VITALS: BP 126/62
[2021-10-27] MEDS: PIPERACILLIN/TAZOBACTAM 3.375 G in DEXTROSE 5% WATER 50 ML IV SCH ×3 (05:20→21:01)
[2021-10-27] MEDS: SODIUM CHLORIDE 0.9% 1,000 ML IV SCH ×2 (05:21→18:13)
[2021-10-27] MEDS: BLOOD SUGAR DIAGNOSTIC STRIP TEST SCH ×4 (06:32→21:09)
[2021-10-27] MEDS: PANTOPRAZOLE SODIUM 40 MG/VIAL IV SCH (09:48)
[2021-10-27] MEDS: FLUCONAZOLE 100MG TABLET PO SCH (09:49)
[2021-10-27] MEDS: INSULIN LISPRO 100 UNITS/ML SUBCUT SCH ×4 (10:00→21:01)
[2021-10-27 10:42] LABS: BASOPHILS % 0.6 % (0.0-2.0); EOSINOPHILS % 2.1 % (0.0-5.0); HEMATOCRIT. 37.4 % (36.0-48.0); HEMOGLOBIN. 12.4 g/dL (12.0-16.0); LYMPHOCYTES % 25.9 % (20.0-50.0); MEAN CORPUSCULAR HEMOGLOBIN 32.5 pg (28.0-32.0); MEAN PLATELET VOLUME 7.9 fl (7.4-10.4); MONOCYTES % 10.8 % (2.0-8.0); NEUTROPHILS % 60.6 % (40.0-76.0); PLATELET 421 x1000/uL (130-400); RED BLOOD CELL COUNT 3.82 mill/uL (4.2-5.4); RED CELL DISTRIBUTION WIDTH 15.4 % (11.6-14.6)
[2021-10-27 10:53] LABS: CHLORIDE 109 mEq/L (98-107)
[2021-10-27] MEDS: POLYVINYL ALCOHOL OPHTH DROPS 15ML BOTHEYE SCH ×3 (14:13→18:09)
[2021-10-27] MEDS: HYDROCODONE/ACETAMINOPHEN 10/325MG TABLET PO PRN ×2 (18:09→22:10)
[2021-10-27] MEDS: ENOXAPARIN 40MG/0.4ML SYR SUBCUT SCH (21:00)
[2021-10-27] MEDS: INSULIN GLARGINE 100 UNITS/ML SUBCUT SCH (21:10)
[2021-10-28] MEDS: SODIUM CHLORIDE 0.9% 1,000 ML IV SCH ×3 (01:27→22:00)
[2021-10-28 04:00] VITALS: BP 120/53
[2021-10-28] MEDS: PIPERACILLIN/TAZOBACTAM 3.375 G in DEXTROSE 5% WATER 50 ML IV SCH ×2 (05:07→14:10)
[2021-10-28] MEDS: HYDROCODONE/ACETAMINOPHEN 10/325MG TABLET PO PRN ×4 (05:25→22:57)
[2021-10-28] MEDS: BLOOD SUGAR DIAGNOSTIC STRIP TEST SCH ×4 (06:21→21:00)
[2021-10-28] MEDS: INSULIN LISPRO 100 UNITS/ML SUBCUT SCH ×4 (07:47→22:42)
[2021-10-28 08:00] VITALS: BP 156/80
[2021-10-28] MEDS: DOCUSATE SODIUM 100MG CAPSULE PO PRN (08:56)
[2021-10-28] MEDS: FLUCONAZOLE 100MG TABLET PO SCH (08:56)
[2021-10-28] MEDS: POLYVINYL ALCOHOL OPHTH DROPS 15ML BOTHEYE SCH ×3 (08:56→17:15)
[2021-10-28] MEDS: PANTOPRAZOLE SODIUM 40 MG/VIAL IV SCH (08:57)
[2021-10-28 12:00] VITALS: BP 116/71
[2021-10-28 16:00] VITALS: BP 152/65
[2021-10-28] MEDS ORDERED: CEFTRIAXONE 2 G PREMIX 50 ML IV SCH (16:15)
[2021-10-28] MEDS: CEFTRIAXONE 2 G in DEXTROSE 5% WATER 50 ML IV SCH (18:06)
[2021-10-28 20:00] VITALS: BP 160/77
[2021-10-28] MEDS: INSULIN GLARGINE 100 UNITS/ML SUBCUT SCH (22:00)
[2021-10-28] MEDS: METRONIDAZOLE 500MG TABLET PO SCH (22:43)
[2021-10-28] MEDS: ENOXAPARIN 40MG/0.4ML SYR SUBCUT SCH (22:44)
[2021-10-29] VITALS: BP 109/90
[2021-10-29] MEDS: BLOOD SUGAR DIAGNOSTIC STRIP TEST SCH ×4 (07:20→21:00)
[2021-10-29] MEDS: INSULIN LISPRO 100 UNITS/ML SUBCUT SCH ×4 (07:50→21:00)
[2021-10-29 08:00] VITALS: BP 158/73
[2021-10-29] MEDS: SODIUM CHLORIDE 0.9% 1,000 ML IV SCH ×2 (08:00→18:26)
[2021-10-29] MEDS: FLUCONAZOLE 100MG TABLET PO SCH (09:00)
[2021-10-29] MEDS: POLYVINYL ALCOHOL OPHTH DROPS 15ML BOTHEYE SCH ×3 (09:00→18:25)
[2021-10-29] MEDS: PANTOPRAZOLE SODIUM 40 MG/VIAL IV SCH (09:00)
[2021-10-29 12:00] VITALS: BP 187/78
[2021-10-29] MEDS ORDERED: DIPHENHYDRAMINE 25MG CAPSULE PO PRN (12:15)
[2021-10-29] MEDS ORDERED: DIPHENHYDRAMINE 25MG CAPSULE PO SCH (14:00)
[2021-10-29] MEDS: METRONIDAZOLE 500MG TABLET PO SCH ×2 (14:16→23:12)
[2021-10-29] MEDS: CEFTRIAXONE 2 G in DEXTROSE 5% WATER 50 ML IV SCH (18:26)
[2021-10-29] MEDS: HYDROCODONE/ACETAMINOPHEN 10/325MG TABLET PO PRN ×2 (18:43→23:12)
[2021-10-29 20:00] VITALS: BP 144/68
[2021-10-29] MEDS: INSULIN GLARGINE 100 UNITS/ML SUBCUT SCH (22:00)
[2021-10-29] MEDS: ENOXAPARIN 40MG/0.4ML SYR SUBCUT SCH (23:13)
[2021-10-30] VITALS: BP 144/68
[2021-10-30] MEDS: SODIUM CHLORIDE 0.9% 1,000 ML IV SCH (04:00)
[2021-10-30] MEDS: BLOOD SUGAR DIAGNOSTIC STRIP TEST SCH ×2 (07:20→12:20)
[2021-10-30] MEDS: INSULIN LISPRO 100 UNITS/ML SUBCUT SCH ×2 (07:50→12:50)
[2021-10-30] MEDS: POLYVINYL ALCOHOL OPHTH DROPS 15ML BOTHEYE SCH ×2 (09:00→13:00)
[2021-10-30] MEDS: PANTOPRAZOLE SODIUM 40 MG/VIAL IV SCH (09:08)
[2021-10-30] MEDS: FLUCONAZOLE 100MG TABLET PO SCH (09:08)
[2021-10-30] MEDS: METRONIDAZOLE 500MG TABLET PO SCH (09:08)
[2021-10-30] MEDS: HYDROCODONE/ACETAMINOPHEN 10/325MG TABLET PO PRN ×2 (09:10→17:06)
[2021-10-30] MEDS ORDERED: LIDOCAINE HCL/EPINEPHRINE 1%-EPI 1:100,000 20 ML VIAL ONE (13:06)
[2021-10-30 17:06] VITALS: BP 155/88
== END 2021-10-30 17:37 | disposition home health service (06) | DRG 282 ==
LOC: ER 14:19 → 6EST 15:00 → EDBEDREQSVC 18:22 → EDBEDREQ 18:22 → EDBEDREQTM 18:22 → SUPCPDRO 19:40 → ENRESERV 21:24 → ER 23:26
PROVIDERS: ADMIT Internal Medicine; ATTEND Internal Medicine
PROC: 079P3ZZ Drainage of Spleen, Percutaneous Approach (ICD-10-PCS; 2021-10-26)
PROC: 02HV33Z Insertion of Infusion Device into Superior Vena Cava, Percutaneous Approach (ICD-10-PCS; principal; 2021-10-30)
PROC: B5181ZA Fluoroscopy of Superior Vena Cava using Low Osmolar Contrast, Guidance (ICD-10-PCS; 2021-10-30)
DX: K85.90 Acute pancreatitis without necrosis or infection, unspecified (principal); I31.3 Pericardial effusion (noninflammatory); D52.9 Folate deficiency anemia, unspecified; D73.3 Abscess of spleen; D73.4 Cyst of spleen; K86.1 Other chronic pancreatitis; E11.65 Type 2 diabetes mellitus with hyperglycemia; E66.01 Morbid (severe) obesity due to excess calories; I10 Essential (primary) hypertension; J44.9 Chronic obstructive pulmonary disease, unspecified; K86.3 Pseudocyst of pancreas; Z20.822 Contact with and (suspected) exposure to COVID-19; Z68.30 Body mass index [BMI] 30.0-30.9, adult; Z79.4 Long term (current) use of insulin; Z88.8 Allergy status to other drugs, medicaments and biological substances; Z87.11 Personal history of peptic ulcer disease
CPT/HCPCS: 20611; 36415; 36573; 49180; 71045; 74176; 76705; 77012; 80048; 80053; 80061; 80320; 81003; 82607; 82746; 82962; 83036; 83540; 83550; 84443; 84484; 85025; 87070; 87075; 87426; 93005; 93306; 93970; 97162; 99152; 99153; 99285; C1725; C9113; J0696; J1650; J1815; J1885; J2250; J2270; J2405; J2543; J3010; J3490; J7030; J7060; Q0163; G0480; G0500

== ENCOUNTER → 2022-03-02 | Outpatient (CLI) | payer MEDICARE, MEDICAID | END | disposition home or self-care (01) | LOC: CT 10:06 | PROVIDERS: ATTEND Surgery | DX: D25.9 Leiomyoma of uterus, unspecified (principal); N20.0 Calculus of kidney; R10.9 Unspecified abdominal pain; K57.90 Diverticulosis of intestine, part unspecified, without perforation or abscess without bleeding; K43.9 Ventral hernia without obstruction or gangrene; K76.0 Fatty (change of) liver, not elsewhere classified; Z90.49 Acquired absence of other specified parts of digestive tract | CPT/HCPCS: 74176 ==

== ENCOUNTER 2023-01-29 15:05 | Inpatient (IN) | payer MEDICARE, MEDICAID ==
[~2023-01-29] VITALS: Ht 165.1 cm; Wt 81.6 kg
[2023-01-29] MEDS ORDERED: KETOROLAC 60MG/2ML VIAL IM STA (15:52)
[2023-01-29] MEDS ORDERED: ONDANSETRON 4MG ODT PO STA (15:52)
[2023-01-29] MEDS ORDERED: MAGNESIUM/ALUMINUM HYDROXIDE/SIMETHICONE 30ML UDC PO ONE (16:00)
[2023-01-29 16:36] LABS: BASOPHILS % 0.4 % (0.0-2.0); EOSINOPHILS % 0.4 % (0.0-5.0); HEMATOCRIT. 40.4 % (36.0-48.0); HEMOGLOBIN. 13.6 g/dL (12.0-16.0); LYMPHOCYTES % 10.9 % (20.0-50.0); MEAN CORPUSCULAR HEMOGLOBIN 33.5 pg (28.0-32.0); MEAN CORPUSCULAR HGB CONC 33.7 g/dL (31.0-37.0); MEAN CORPUSCULAR VOLUME 99.5 fL (81.0-99.0); MEAN PLATELET VOLUME 7.7 fl (7.4-10.4); MONOCYTES % 10.6 % (2.0-8.0); NEUTROPHILS % 77.7 % (40.0-76.0); PLATELET 410 x1000/uL (130-400); RED BLOOD CELL COUNT 4.06 mill/uL (4.2-5.4); WHITE BLOOD COUNT 6.9 x1000/uL (4.5-11.0)
[2023-01-29 16:43] LABS: ALANINE AMINOTRANSFERASE < 7 IU/L (10-49); ALBUMIN 3.5 g/dL (3.2-4.8); ASPARTATE AMINOTRANSFERASE 12 IU/L (<34); BILIRUBIN TOTAL 0.5 mg/dL (0.1-1.0); CALCIUM 9.2 mg/dL (8.7-10.4); CARBON DIOXIDE 21 mEq/L (21-32); CHLORIDE 100 mEq/L (98-107); CREATININE 0.7 mg/dL (0.6-1.0); GLUCOSE 75 mg/dL (70-105); PROTEIN TOTAL 6.5 g/dL (6.0-8.3); SODIUM 139 mEq/L (136-145); TROPONIN I HIGH SENSITIVITY 8 ng/L (3.0-34)
[2023-01-29 17:18] LABS: POTASSIUM 2.7 mEq/L (3.5-5.1); UREA NITROGEN BLOOD < 5 mg/dL (9-23)
[2023-01-29] MEDS ORDERED: KETOROLAC 60MG/2ML VIAL IM NR (18:30)
[2023-01-29] MEDS ORDERED: MAGNESIUM/ALUMINUM HYDROXIDE/SIMETHICONE 30ML UDC PO NR (18:30)
[2023-01-29] MEDS ORDERED: ONDANSETRON 4MG ODT PO NR (18:30)
[2023-01-29] MEDS ORDERED: POTASSIUM CHLORIDE 20MEQ TABLET SR PO ONE (18:30)
[2023-01-29] MEDS ORDERED: METOCLOPRAMIDE HCL 10MG/2ML VIAL IV ONE (19:00)
[2023-01-29] MEDS ORDERED: LACTATED RINGERS 1,000 ML IV SCH (19:00)
[2023-01-29] MEDS ORDERED: POTASSIUM CHLORIDE INJ 40 MEQ in DEXT 5% WATER 500 ML IV ONE (19:00)
[2023-01-29] MEDS ORDERED: MAGNESIUM/ALUMINUM HYDROXIDE/SIMETHICONE 30ML UDC PO PRN (21:45)
[2023-01-29] MEDS ORDERED: DEXTROSE 50% WATER 50ML SYRINGE IV PRN (21:45)
[2023-01-29] MEDS ORDERED: GUAIFENESIN 200MG/10ML SUGAR FREE UDC PO PRN (21:45)
[2023-01-29] MEDS ORDERED: CLONIDINE 0.1MG TABLET PO PRN (21:45)
[2023-01-29] MEDS ORDERED: NITROGLYCERIN 0.4MG TABLET SL SL PRN (21:45)
[2023-01-29] MEDS ORDERED: KETOROLAC 15MG/ML VIAL IV PRN (21:45)
[2023-01-29] MEDS ORDERED: POTASSIUM CHLORIDE 20MEQ TABLET SR PO NR (21:45)
[2023-01-29] MEDS ORDERED: DOCUSATE SODIUM 100MG CAPSULE PO PRN (21:45)
[2023-01-29] MEDS ORDERED: ACETAMINOPHEN 325MG TABLET PO PRN ×2 (21:45)
[2023-01-29] MEDS ORDERED: IPRATROPIUM/ALBUTEROL 0.5-3(2.5)MG/3ML NEB NEB PRN (21:45)
[2023-01-29 23:29] LABS: CHOLESTEROL 138 mg/dL (<200); HDL CHOLESTEROL 42 mg/dL (>65); LDL CHOLESTEROL 97 mg/dL (5-100); T4 FREE 1.21 ng/dL (0.89-1.76); TRIGLYCERIDE 121 mg/dL (0-150)
[2023-01-29 23:53] LABS: ETHANOL BLOOD < 10 mg/dL (<10)
[2023-01-30] MEDS: SUCRALFATE 1 G/10 ML UDC PO SCH ×4 (06:30→21:00)
[2023-01-30] MEDS: ENOXAPARIN 40MG/0.4ML SYR SUBCUT SCH (09:28)
[2023-01-30] MEDS: INSULIN LISPRO 100 UNITS/ML SUBCUT SCH ×5 (09:29→21:00)
[2023-01-30] MEDS: BLOOD SUGAR DIAGNOSTIC STRIP TEST SCH ×4 (09:29→21:00)
[2023-01-30] MEDS: PANTOPRAZOLE SODIUM 40 MG/VIAL IV SCH (09:30)
[2023-01-30] MEDS ORDERED: POTASSIUM CHLORIDE INJ 40 MEQ in DEXT 5% WATER 250 ML IV ONE ×2 (11:15→17:00)
[2023-01-30] MEDS: ONDANSETRON HCL 4MG/2ML INJ IV PRN ×2 (12:36→21:27)
[2023-01-30] MEDS: METOCLOPRAMIDE HCL 10MG/2ML VIAL IV SCH ×2 (12:36→18:00)
[2023-01-30] MEDS: KCL 20MEQ/100ML X 2 FOR TOTAL KCL 40MEQ/200ML IV SCH ×2 (12:36→17:59)
[2023-01-30 13:47] LABS: PHOSPHORUS 2.7 mg/dL (2.5-4.9)
[2023-01-30 14:00] VITALS: BP_SYST 136; BP_SYST 140; BP_DIAS 45; BP_DIAS 61; PULSE 82; PULSE 88; RESP 18; RESP 19; TEMP 97.4; TEMP 98.4
[2023-01-30] MEDS: PIPERACILLIN/TAZOBACTAM 3.375 G in DEXTROSE 5% WATER 50 ML IV SCH (14:30)
[2023-01-30 14:37] LABS: BASOPHILS % 0.5 % (0.0-2.0); EOSINOPHILS % 0.5 % (0.0-5.0); HEMATOCRIT. 42.1 % (36.0-48.0); HEMOGLOBIN. 14.3 g/dL (12.0-16.0); LYMPHOCYTES % 18.6 % (20.0-50.0); MEAN CORPUSCULAR HEMOGLOBIN 32.9 pg (28.0-32.0); MEAN CORPUSCULAR VOLUME 96.6 fL (81.0-99.0); NEUTROPHILS % 69.4 % (40.0-76.0); PLATELET 413 x1000/uL (130-400); RED BLOOD CELL COUNT 4.36 mill/uL (4.2-5.4); RED CELL DISTRIBUTION WIDTH 14.8 % (11.6-14.6); WHITE BLOOD COUNT 7.9 x1000/uL (4.5-11.0)
[2023-01-30 16:00] VITALS: BP 132/82; PULSE 82; RESP 19; TEMP 98.1
[2023-01-30] MEDS ORDERED: MAGNESIUM 4 G PREMIX 100 ML IV NR (16:00)
[2023-01-30] MEDS ORDERED: KCL 20MEQ/100ML X 2 FOR TOTAL KCL 40MEQ/200ML IV SCH (17:00)
[2023-01-30] MEDS: DEXT 5%/0.9% NACL 1,000 ML IV SCH (18:12)
[2023-01-30 18:25] LABS: ALANINE AMINOTRANSFERASE < 7 IU/L (10-49); ALBUMIN 3.5 g/dL (3.2-4.8); AMYLASE 88 IU/L (30-118); ASPARTATE AMINOTRANSFERASE 12 IU/L (<34); BILIRUBIN TOTAL 0.4 mg/dL (0.1-1.0); CALCIUM 9.1 mg/dL (8.7-10.4); CARBON DIOXIDE 26 mEq/L (21-32); CHLORIDE 102 mEq/L (98-107); CREATINE KINASE 33 IU/L (34-145); CREATINE KINASE MB FRACTION 0.5 ng/mL (0.5-3.6); CREATININE 0.7 mg/dL (0.6-1.0); GLUCOSE 118 mg/dL (70-105); POTASSIUM 2.9 mEq/L (3.5-5.1); PROTEIN TOTAL 6.4 g/dL (6.0-8.3); SODIUM 141 mEq/L (136-145); TROPONIN I HIGH SENSITIVITY 8 ng/L (3.0-34); UREA NITROGEN BLOOD 5 mg/dL (9-23)
[2023-01-30] MEDS ORDERED: LACTATED RINGERS 1,000 ML IV SCH (19:00)
[2023-01-30 19:06] LABS: VITAMIN B12 SERUM 406 pg/mL (211-911)
[2023-01-30 20:00] VITALS: BP 115/68; PULSE 88; RESP 18; TEMP 98.9
[2023-01-31] VITALS: PULSE 89; RESP 18
[2023-01-31] MEDS: PIPERACILLIN/TAZOBACTAM 3.375 G in DEXTROSE 5% WATER 50 ML IV SCH ×4 (01:43→22:25)
[2023-01-31] MEDS: METOCLOPRAMIDE HCL 10MG/2ML VIAL IV SCH ×5 (01:43→22:25)
[2023-01-31] MEDS: ONDANSETRON HCL 4MG/2ML INJ IV PRN ×4 (03:49→17:09)
[2023-01-31 04:00] VITALS: BP 136/70; PULSE 90; RESP 17; TEMP 98
[2023-01-31] MEDS: KETOROLAC 10MG TABLET PO PRN (04:13)
[2023-01-31] MEDS: SUCRALFATE 1 G/10 ML UDC PO SCH ×4 (06:44→22:26)
[2023-01-31] MEDS: BLOOD SUGAR DIAGNOSTIC STRIP TEST SCH ×4 (06:44→21:00)
[2023-01-31] MEDS: INSULIN LISPRO 100 UNITS/ML SUBCUT SCH ×4 (07:20→21:00)
[2023-01-31 08:00] VITALS: BP 136/72; PULSE 87; RESP 22; TEMP 99.4
[2023-01-31] MEDS: PANTOPRAZOLE SODIUM 40 MG/VIAL IV SCH ×2 (08:53→22:25)
[2023-01-31] MEDS ORDERED: LIDOCAINE HCL 1% 10 MG/ML 10ML VIAL ONE (09:34)
[2023-01-31 10:02] LABS: *AMPHETAMINES SCREEN URINE NEGATIVE (NEGATIVE); *BARBITURATES SCREEN URINE NEGATIVE (NEGATIVE); *BENZODIAZEPINES SCREEN URINE NEGATIVE (NEGATIVE); *COCAINE SCREEN URINE NEGATIVE (NEGATIVE); CANNABINOID URINE SCREEN NEGATIVE (NEGATIVE); ECSTASY MDMA SCREEN URINE NEGATIVE (NEGATIVE); METHADONE URINE SCREEN Neg (NEGATIVE); OPIATES URINE SCREEN PRESUMPTIVE POSITIVE (NEGATIVE); PHENCYCLIDINE URINE SCREEN NEGATIVE (NEGATIVE)
[2023-01-31 12:00] VITALS: BP 125/71; PULSE 88; RESP 18; TEMP 97.9
[2023-01-31 12:00] LABS: HEMOGLOBIN 14.2 g/dL (12.0-16.0); MEAN CORPUSCULAR HEMOGLOBIN 33.5 pg (28.0-32.0); MEAN CORPUSCULAR HGB CONC 33.9 g/dL (31.0-37.0); MEAN CORPUSCULAR VOLUME 99.1 fL (81.0-99.0); PLATELET 452 x1000/uL (130-400); RED BLOOD CELL COUNT 4.24 mill/uL (4.2-5.4); RED CELL DISTRIBUTION WIDTH 14.6 % (11.6-14.6)
[2023-01-31 12:58] LABS: CALCIUM 9.3 mg/dL (8.7-10.4); CARBON DIOXIDE 25 mEq/L (21-32); CHLORIDE 101 mEq/L (98-107); CREATININE 0.7 mg/dL (0.6-1.0); GLUCOSE 114 mg/dL (70-105); POTASSIUM 3.3 mEq/L (3.5-5.1); SODIUM 140 mEq/L (136-145)
[2023-01-31 12:59] LABS: UREA NITROGEN BLOOD < 5 mg/dL (9-23)
[2023-01-31 14:50] LABS: FERRITIN 126 ng/mL (10-291); VITAMIN B12 SERUM 661 pg/mL (211-911)
[2023-01-31] MEDS: KCL 20MEQ/100ML PREMIX 100 ML IV SCH ×2 (15:19→17:04)
[2023-01-31 16:00] VITALS: BP 130/70; PULSE 88; RESP 19; TEMP 98.5
[2023-01-31 16:16] LABS: IRON 35 ug/dL (50-170); TOTAL IRON BINDING CAPACITY 425 ug/dl (250-425)
[2023-01-31] MEDS: ENOXAPARIN 40MG/0.4ML SYR SUBCUT SCH (17:12)
[2023-01-31] MEDS: ZOLPIDEM TARTRATE 5MG TABLET PO PRN (19:14)
[2023-01-31] MEDS: DEXT 5%/0.9% NACL 1,000 ML IV SCH (19:14)
[2023-01-31 20:00] VITALS: BP 123/78; PULSE 94; RESP 18; TEMP 98
[2023-02-01] VITALS: PULSE 84; RESP 17
[2023-02-01 04:00] VITALS: BP 123/70; PULSE 88; RESP 16; TEMP 98
[2023-02-01] MEDS: ONDANSETRON HCL 4MG/2ML INJ IV PRN (04:11)
[2023-02-01 04:15] LABS: HEMATOCRIT. 38.2 % (36.0-48.0); MEAN CORPUSCULAR HEMOGLOBIN 33.2 pg (28.0-32.0); MEAN CORPUSCULAR VOLUME 97.7 fL (81.0-99.0); MEAN PLATELET VOLUME 7.9 fl (7.4-10.4); PLATELET 363 x1000/uL (130-400); RED BLOOD CELL COUNT 3.91 mill/uL (4.2-5.4); RED CELL DISTRIBUTION WIDTH 14.4 % (11.6-14.6); WHITE BLOOD COUNT 6.8 x1000/uL (4.5-11.0)
[2023-02-01 04:24] LABS: CALCIUM 8.8 mg/dL (8.7-10.4); CARBON DIOXIDE 32 mEq/L (21-32); CHLORIDE 104 mEq/L (98-107); CREATININE 0.7 mg/dL (0.6-1.0); GLUCOSE 134 mg/dL (70-105); POTASSIUM 3.1 mEq/L (3.5-5.1); SODIUM 141 mEq/L (136-145)
[2023-02-01 04:30] LABS: DIFFERENTIAL COMMENT 1
[2023-02-01 04:40] LABS: UREA NITROGEN BLOOD < 5 mg/dL (9-23)
[2023-02-01 05:27] LABS: INR 1.1; PROTHROMBIN TIME 11.4 sec (9.6-11.0)
[2023-02-01] MEDS: BLOOD SUGAR DIAGNOSTIC STRIP TEST SCH ×4 (06:46→21:00)
[2023-02-01] MEDS: SUCRALFATE 1 G/10 ML UDC PO SCH ×4 (06:46→22:27)
[2023-02-01] MEDS: PIPERACILLIN/TAZOBACTAM 3.375 G in DEXTROSE 5% WATER 50 ML IV SCH ×3 (06:54→22:30)
[2023-02-01] MEDS: METOCLOPRAMIDE HCL 10MG/2ML VIAL IV SCH ×3 (06:54→18:21)
[2023-02-01] MEDS: INSULIN LISPRO 100 UNITS/ML SUBCUT SCH ×4 (07:20→22:29)
[2023-02-01 08:00] VITALS: PULSE 84; RESP 15; TEMP 97.9
[2023-02-01] MEDS: ENOXAPARIN 40MG/0.4ML SYR SUBCUT SCH (08:04)
[2023-02-01] MEDS: KCL 20MEQ/100ML PREMIX 100 ML IV SCH ×2 (08:17→10:19)
[2023-02-01] MEDS: PANTOPRAZOLE SODIUM 40 MG/VIAL IV SCH ×2 (08:17→22:29)
[2023-02-01 12:00] VITALS: PULSE 81; RESP 16
[2023-02-01] MEDS ORDERED: PROPOFOL 200MG/20ML VIAL IV ONE (13:25)
[2023-02-01 15:38] LABS: PLATELET ESTIMATE NORMAL
[2023-02-01 16:00] VITALS: PULSE 74; RESP 17; TEMP 98
[2023-02-01] MEDS: KETOROLAC 10MG TABLET PO PRN ×2 (16:43→22:28)
[2023-02-01] MEDS ORDERED: LIDOCAINE 5% PATCH TOP NR (18:00)
[2023-02-01] MEDS: DEXT 5%/0.9% NACL 1,000 ML IV SCH (18:21)
[2023-02-01 22:21] VITALS: BP 146/79; PULSE 94; RESP 20; TEMP 98.3
[2023-02-01] MEDS: ZOLPIDEM TARTRATE 5MG TABLET PO PRN (22:27)
[2023-02-02] MEDS: SUCRALFATE 1 G/10 ML UDC PO SCH ×4 (07:06→20:42)
[2023-02-02] MEDS: BLOOD SUGAR DIAGNOSTIC STRIP TEST SCH ×4 (07:06→20:42)
[2023-02-02] MEDS: METOCLOPRAMIDE HCL 10MG/2ML VIAL IV SCH ×4 (07:06→18:36)
[2023-02-02] MEDS: PIPERACILLIN/TAZOBACTAM 3.375 G in DEXTROSE 5% WATER 50 ML IV SCH ×3 (07:06→20:42)
[2023-02-02] MEDS: INSULIN LISPRO 100 UNITS/ML SUBCUT SCH ×4 (07:20→20:42)
[2023-02-02 08:00] VITALS: PULSE 96; RESP 18; TEMP 99
[2023-02-02] MEDS: PANTOPRAZOLE SODIUM 40 MG/VIAL IV SCH ×2 (09:37→20:42)
[2023-02-02] MEDS: ENOXAPARIN 40MG/0.4ML SYR SUBCUT SCH (09:39)
[2023-02-02] MEDS: LIDOCAINE 5% PATCH TOP SCH (09:47)
[2023-02-02 16:00] VITALS: PULSE 98; RESP 22; TEMP 99
[2023-02-02] MEDS: DEXT 5%/0.9% NACL 1,000 ML IV SCH (18:36)
[2023-02-02] MEDS: ZOLPIDEM TARTRATE 5MG TABLET PO PRN (20:48)
[2023-02-03] MEDS: METOCLOPRAMIDE HCL 10MG/2ML VIAL IV SCH ×3 (05:07→12:51)
[2023-02-03] MEDS: SUCRALFATE 1 G/10 ML UDC PO SCH ×2 (05:07→11:12)
[2023-02-03] MEDS: PIPERACILLIN/TAZOBACTAM 3.375 G in DEXTROSE 5% WATER 50 ML IV SCH (05:08)
[2023-02-03] MEDS: BLOOD SUGAR DIAGNOSTIC STRIP TEST SCH ×2 (06:14→11:50)
[2023-02-03 06:43] LABS: BASOPHILS % 0.9 % (0.0-2.0); EOSINOPHILS % 1.8 % (0.0-5.0); HEMATOCRIT. 37.6 % (36.0-48.0); HEMOGLOBIN. 12.7 g/dL (12.0-16.0); LYMPHOCYTES % 22.2 % (20.0-50.0); MEAN CORPUSCULAR HEMOGLOBIN 32.6 pg (28.0-32.0); MEAN CORPUSCULAR HGB CONC 33.7 g/dL (31.0-37.0); MEAN CORPUSCULAR VOLUME 96.9 fL (81.0-99.0); MEAN PLATELET VOLUME 8.2 fl (7.4-10.4); MONOCYTES % 10.8 % (2.0-8.0); NEUTROPHILS % 64.3 % (40.0-76.0); PLATELET 327 x1000/uL (130-400); RED BLOOD CELL COUNT 3.88 mill/uL (4.2-5.4); RED CELL DISTRIBUTION WIDTH 13.9 % (11.6-14.6); WHITE BLOOD COUNT 6.8 x1000/uL (4.5-11.0)
[2023-02-03 07:27] LABS: CARBON DIOXIDE 28 mEq/L (21-32); CHLORIDE 105 mEq/L (98-107); CREATININE 0.6 mg/dL (0.6-1.0); GLUCOSE 151 mg/dL (70-105); POTASSIUM 3.3 mEq/L (3.5-5.1); SODIUM 139 mEq/L (136-145)
[2023-02-03 07:33] LABS: UREA NITROGEN BLOOD < 5 mg/dL (9-23)
[2023-02-03 08:00] VITALS: BP 136/71; PULSE 99; RESP 18; TEMP 98.1
[2023-02-03] MEDS: ONDANSETRON HCL 4MG/2ML INJ IV PRN (08:16)
[2023-02-03] MEDS: ENOXAPARIN 40MG/0.4ML SYR SUBCUT SCH (08:18)
[2023-02-03] MEDS: PANTOPRAZOLE SODIUM 40 MG/VIAL IV SCH (08:18)
[2023-02-03] MEDS: KCL 20MEQ/100ML PREMIX 100 ML IV SCH ×2 (08:18→11:11)
[2023-02-03] MEDS: LIDOCAINE 5% PATCH TOP SCH (08:19)
[2023-02-03] MEDS: INSULIN LISPRO 100 UNITS/ML SUBCUT SCH ×2 (08:20→12:58)
[2023-02-03] MEDS ORDERED: PANT40TA51 MT (09:13)
[2023-02-03] MEDS ORDERED: SUCR1TAB30 MT (09:13)
[2023-02-03 11:56] VITALS: BP 131/61; PULSE 86; TEMP 98.3; O2SAT 99
[2023-02-03 12:00] VITALS: BP 131/61; PULSE 89; RESP 16; TEMP 98.4
== END 2023-02-03 15:43 | disposition home or self-care (01) | DRG 241 ==
LOC: ER 15:05 → MICUSO 20:43 → EDBEDREQ 21:17 → EDBEDREQTM 21:17 → 3WST 01-30 12:20
PROVIDERS: ADMIT Internal Medicine; ATTEND Internal Medicine
PROC: 02HV33Z Insertion of Infusion Device into Superior Vena Cava, Percutaneous Approach (ICD-10-PCS; 2023-01-31)
PROC: B548ZZA Ultrasonography of Superior Vena Cava, Guidance (ICD-10-PCS; 2023-01-31)
PROC: B5181ZA Fluoroscopy of Superior Vena Cava using Low Osmolar Contrast, Guidance (ICD-10-PCS; 2023-01-31)
PROC: 0DB78ZX Excision of Stomach, Pylorus, Via Natural or Artificial Opening Endoscopic, Diagnostic (ICD-10-PCS; principal; 2023-02-01)
DX: K29.71 Gastritis, unspecified, with bleeding (principal); K86.3 Pseudocyst of pancreas; D53.9 Nutritional anemia, unspecified; E11.9 Type 2 diabetes mellitus without complications; D25.9 Leiomyoma of uterus, unspecified; D72.821 Monocytosis (symptomatic); Z79.899 Other long term (current) drug therapy; K25.4 Chronic or unspecified gastric ulcer with hemorrhage; I86.4 Gastric varices; E87.6 Hypokalemia; K21.9 Gastro-esophageal reflux disease without esophagitis; D75.839 Thrombocytosis, unspecified; K86.1 Other chronic pancreatitis; J44.9 Chronic obstructive pulmonary disease, unspecified; D75.89 Other specified diseases of blood and blood-forming organs; E05.90 Thyrotoxicosis, unspecified without thyrotoxic crisis or storm; E83.42 Hypomagnesemia; I10 Essential (primary) hypertension; I48.0 Paroxysmal atrial fibrillation; N20.0 Calculus of kidney; F10.20 Alcohol dependence, uncomplicated; F17.210 Nicotine dependence, cigarettes, uncomplicated; Y90.0 Blood alcohol level of less than 20 mg/100 ml; Z90.49 Acquired absence of other specified parts of digestive tract
CPT/HCPCS: 36415; 36573; 71045; 74176; 80048; 80053; 80061; 80305; 80320; 82150; 82270; 82550; 82553; 82607; 82728; 82746; 82962; 83036; 83540; 83550; 83605; 83735; 83880; 84100; 84145; 84439; 84443; 84484; 85025; 85027; 85044; 88305; 88312; 88313; 93005; 93970; 97161; 99285; C1725; C9113; J1650; J1815; J1885; J2405; J2543; J2704; J2765; J3475; J3480; J3490; J7042; J7060; Q0162; G0480

== ENCOUNTER 2023-03-21 15:58 | Emergency (ER) | payer MEDICARE, MEDICAID ==
[~2023-03-21] VITALS: Ht 157.5 cm; Wt 60.0 kg
[~2023-03-21 15:58] MED LIST changes: -ACET-2708 MT; -ACET325T52 MT; -HYDR-4001 MT; +SUCR1TAB30 MT
[2023-03-21 16:02] VITALS: BP 11/72; PULSE 87; RESP 18; TEMP 98; O2SAT 99
== END 2023-03-21 19:08 | disposition left against medical advice (07) ==
LOC: ER 15:58
DX: R51.9 Headache, unspecified (principal); Z53.21 Procedure and treatment not carried out due to patient leaving prior to being seen by health care provider
CPT/HCPCS: 99281

== ENCOUNTER 2023-09-04 09:41 | Emergency (ER) | payer MEDICARE, MEDICAID ==
[~2023-09-04] VITALS: Ht 167.6 cm; Wt 63.0 kg
[2023-09-04 09:43] VITALS: O2SAT 99
[2023-09-04] MEDS ORDERED: IPRATROPIUM BROMIDE (0.02%) 0.5MG/2.5ML NEB HHN STA (09:56)
[2023-09-04] MEDS ORDERED: ALBUTEROL (0.083%) 2.5MG/3ML NEB HHN STA (09:56)
[2023-09-04 10:38] LABS: DIFFERENTIAL COMMENT 0; EOSINOPHILS % 1.4 % (0.0-5.0); HEMATOCRIT. 42.7 % (36.0-48.0); HEMOGLOBIN. 14.3 g/dL (12.0-16.0); LYMPHOCYTES % 28.3 % (20.0-50.0); MEAN CORPUSCULAR HEMOGLOBIN 33.7 pg (28.0-32.0); MEAN CORPUSCULAR HGB CONC 33.5 g/dL (31.0-37.0); MEAN CORPUSCULAR VOLUME 100.7 fL (81.0-99.0); MONOCYTES % 9.6 % (2.0-8.0); NEUTROPHILS % 59.7 % (40.0-76.0); PLATELET 244 x1000/uL (130-400); RED BLOOD CELL COUNT 4.24 mill/uL (4.2-5.4); RED CELL DISTRIBUTION WIDTH 14.5 % (11.6-14.6); WHITE BLOOD COUNT 5.7 x1000/uL (4.5-11.0)
[2023-09-04 10:44] LABS: CHLORIDE 100 mEq/L (98-107); POTASSIUM 3.7 mEq/L (3.5-5.1); SODIUM 133 mEq/L (136-145)
[2023-09-04 10:45] LABS: CARBON DIOXIDE 24 mEq/L (21-32)
[2023-09-04 10:50] LABS: CREATININE 0.8 mg/dL (0.6-1.0); GLUCOSE 240 mg/dL (70-105)
[2023-09-04 10:51] LABS: TROPONIN I HIGH SENSITIVITY 5 ng/L (3.0-34)
[2023-09-04 11:21] LABS: UREA NITROGEN BLOOD < 5 mg/dL (9-23)
[2023-09-04 13:19] VITALS: BP 164/52; PULSE 76; RESP 18; TEMP 98.8
[2023-09-04] MEDS ORDERED: CARVEDILOL 6.25 MG TABLET PO SCH (14:30)
[2023-09-04] MEDS ORDERED: AMLODIPINE 5MG TABLET PO SCH (14:30)
[2023-09-04 21:37] LABS: *AMPHETAMINES SCREEN URINE NEGATIVE (NEGATIVE); *BARBITURATES SCREEN URINE NEGATIVE (NEGATIVE); *COCAINE SCREEN URINE NEGATIVE (NEGATIVE); ECSTASY MDMA SCREEN URINE NEGATIVE (NEGATIVE); METHADONE URINE SCREEN NEGATIVE (NEGATIVE); OPIATES URINE SCREEN NEGATIVE (NEGATIVE); PHENCYCLIDINE URINE SCREEN NEGATIVE (NEGATIVE)
== END 2023-09-04 15:35 | disposition left against medical advice (07) ==
LOC: ER 10:08
DX: R07.9 Chest pain, unspecified (principal); I10 Essential (primary) hypertension; Z88.8 Allergy status to other drugs, medicaments and biological substances; J45.909 Unspecified asthma, uncomplicated
CPT/HCPCS: 36415; 71045; 80048; 80305; 83880; 84484; 85025; 93005; 99285

== ENCOUNTER 2024-03-10 14:28 | Emergency (ER) | payer MEDICARE, OTHER ==
[~2024-03-10] VITALS: Ht 167.6 cm; Wt 77.5 kg
[~2024-03-10 14:28] MED LIST changes: +APIX5TAB MT; +ASPI-1160 PO
[2024-03-10 14:46] VITALS: BP 116/56; PULSE 99; RESP 16; TEMP 97.6; O2SAT 98
[2024-03-10] MEDS ORDERED: AMOX1TAB16 MT (17:34)
== END 2024-03-10 17:51 | disposition home or self-care (01) ==
LOC: ER 14:42
DX: J18.9 Pneumonia, unspecified organism (principal); J44.0 Chronic obstructive pulmonary disease with (acute) lower respiratory infection; E11.9 Type 2 diabetes mellitus without complications; I10 Essential (primary) hypertension; Z79.899 Other long term (current) drug therapy; Z20.822 Contact with and (suspected) exposure to COVID-19
CPT/HCPCS: 71045; 87426; 87804; 99284

== ENCOUNTER 2024-05-27 18:49 | Inpatient (IN) | payer MEDICARE, MEDICAID ==
[~2024-05-27] VITALS: Ht 167.6 cm; Wt 71.7 kg
[~2024-05-27 18:49] MED LIST changes: +AMOX1TAB16 MT
[2024-05-27 20:17] LABS: BASOPHILS % 0.2 % (0.0-2.0); EOSINOPHILS % 1.5 % (0.0-5.0); HEMATOCRIT. 28.8 % (36.0-48.0); HEMOGLOBIN. 9.2 g/dL (12.0-16.0); LYMPHOCYTES % 7.3 % (20.0-50.0); MEAN CORPUSCULAR HEMOGLOBIN 37.5 pg (28.0-32.0); MEAN CORPUSCULAR HGB CONC 31.9 g/dL (31.0-37.0); MEAN CORPUSCULAR VOLUME 117.4 fL (81.0-99.0); MEAN PLATELET VOLUME 9.8 fl (7.4-10.4); MONOCYTES % 6.7 % (2.0-8.0); NEUTROPHILS % 84.3 % (40.0-76.0); PLATELET 262 x1000/uL (130-400); RED BLOOD CELL COUNT 2.45 mill/uL (4.2-5.4); RED CELL DISTRIBUTION WIDTH 15.3 % (11.6-14.6); WHITE BLOOD COUNT 10.4 x1000/uL (4.5-11.0)
[2024-05-27] MEDS: PIPERACILLIN/TAZO 3.375G/50ML 50 ML IV ONE (20:40)
[2024-05-27] MEDS: SODIUM CHLORIDE 0.9% (SEPSIS BOLUS) IV ONE (20:40)
[2024-05-27 20:43] LABS: ADD RBC MORPHOLOGY YES; DIFFERENTIAL COMMENT 1
[2024-05-27] MEDS: MORPHINE SULFATE 4 MG/ML INJ (FOR IV/IM USE) IV ONE (22:22)
[2024-05-27] MEDS: SODIUM CHLORIDE 0.9% 1,000 ML IV ONE (22:22)
[2024-05-27 23:38] LABS: PLATELET ESTIMATE NORMAL
[2024-05-27 23:39] LABS: ANISOCYTOSIS 2+; OVALOCYTES 1+
[2024-05-27] MEDS ORDERED: NOREPINEPHRINE 8 MG in DEXT 5% WATER 242 ML IV PRN (23:45)
[2024-05-28] VITALS (38 sets, daily range): BP systolic 62–208; BP diastolic 21–197; PULSE 73–120; RESP 13–34; TEMP 36.6–37.3; O2SAT 87–100
[2024-05-28] MEDS ORDERED: SODIUM CHLORIDE 0.9% 1,000 ML IV SCH (02:30)
[2024-05-28] MEDS ORDERED: GUAIFENESIN 200MG/10ML SUGAR FREE UDC PO PRN (02:45)
[2024-05-28] MEDS ORDERED: DOCUSATE SODIUM 100MG CAPSULE PO PRN (02:45)
[2024-05-28] MEDS ORDERED: MAGNESIUM/ALUMINUM HYDROXIDE/SIMETHICONE 30ML UDC PO PRN (02:45)
[2024-05-28] MEDS ORDERED: IPRATROPIUM/ALBUTEROL 0.5-3(2.5)MG/3ML NEB HHN PRN (02:45)
[2024-05-28] MEDS ORDERED: ONDANSETRON HCL 4MG/2ML INJ IV PRN (02:45)
[2024-05-28] MEDS: DEXTROSE 50% WATER 50ML SYRINGE IV PRN (02:51)
[2024-05-28] MEDS: NOREPINEPHRINE 8MG/250ML PMX 250 ML IV PRN (02:57)
[2024-05-28] MEDS: VANCOMYCIN 1G PREMIX 200 ML IV SCH (03:03)
[2024-05-28] MEDS: HYDROCORTISONE SOD SUCCINATE 100 MG/2 ML VIAL IV NR (03:09)
[2024-05-28 03:16] LABS: CHLORIDE 102 mEq/L (98-107); SODIUM 139 mEq/L (136-145)
[2024-05-28 03:17] LABS: CALCIUM 7.1 mg/dL (8.7-10.4); CARBON DIOXIDE 23 mEq/L (21-32)
[2024-05-28 03:18] LABS: HEMATOCRIT 30.8 % (36.0-48.0); MEAN CORPUSCULAR HEMOGLOBIN 37.8 pg (28.0-32.0); MEAN CORPUSCULAR HGB CONC 32.6 g/dL (31.0-37.0); MEAN CORPUSCULAR VOLUME 115.8 fL (81.0-99.0); PLATELET 284 x1000/uL (130-400); RED BLOOD CELL COUNT 2.66 mill/uL (4.2-5.4); RED CELL DISTRIBUTION WIDTH 14.3 % (11.6-14.6); WHITE BLOOD COUNT 10.9 x1000/uL (4.5-11.0)
[2024-05-28 03:22] LABS: GLUCOSE 51 mg/dL (70-105); IRON 38 ug/dL (50-170)
[2024-05-28 03:23] LABS: INR 2.5; PROTHROMBIN TIME 24.6 sec (9.6-11.0); TROPONIN I HIGH SENSITIVITY 22 ng/L (3.0-34); UREA NITROGEN BLOOD 7 mg/dL (9-23)
[2024-05-28 03:24] LABS: ALANINE AMINOTRANSFERASE 35 IU/L (10-49); ALBUMIN 1.7 g/dL (3.2-4.8); ASPARTATE AMINOTRANSFERASE 132 IU/L (<34); BILIRUBIN DIRECT 1.5 mg/dL (<=3.0)
[2024-05-28 03:25] LABS: BILIRUBIN TOTAL 2.1 mg/dL (0.1-1.0); PHOSPHORUS 4.7 mg/dL (2.5-4.9); PROTEIN TOTAL 4.4 g/dL (6.0-8.3); TOTAL IRON BINDING CAPACITY 139 ug/dl (250-425)
[2024-05-28 03:32] LABS: FERRITIN 958 ng/mL (10-291)
[2024-05-28 04:04] LABS: VITAMIN B12 SERUM > 2000 pg/mL (211-911)
[2024-05-28 04:19] LABS: CREATININE 1.8 mg/dL (0.6-1.0); POTASSIUM 2.6 mEq/L (3.5-5.1)
[2024-05-28 04:43] LABS: BETA HYDROXYBUTYRATE 0.4 mMol/L (0.0-0.3)
[2024-05-28] MEDS: DEXT 5%/0.9% NACL 1,000 ML IV SCH (05:02)
[2024-05-28] MEDS: THIAMINE HCL 100 MG in SODIUM CHLORIDE 0.9% 49 ML IV NR (05:56)
[2024-05-28] MEDS ORDERED: PHENYLEPHRINE 100 MG in DEXT 5% WATER 240 ML IV PRN (06:30)
[2024-05-28 06:39] LABS: CLARITY URINE CLOUDY (CLEAR); COLOR URINE DARK YELLOW (YELLOW); GLUCOSE URINE 1+ (NEGATIVE); KETONES URINE NEGATIVE (NEGATIVE); LEUKOCYTE ESTERASE URINE 1+ (NEGATIVE); NITRITE URINE NEGATIVE (NEGATIVE); OCCULT BLOOD URINE 2+ (NEGATIVE); PH URINE 5.5 (4.5-8.0); PROTEIN URINE 1+ (NEGATIVE); SPECIFIC GRAVITY URINE 1.015 (1.005-1.030)
[2024-05-28] MEDS: PHENYLEPHRINE 100 MG in DEXT 5% WATER 240 ML IV PRN (07:20)
[2024-05-28 07:21] LABS: *AMPHETAMINES SCREEN URINE NEGATIVE (NEGATIVE); *BARBITURATES SCREEN URINE NEGATIVE (NEGATIVE); *BENZODIAZEPINES SCREEN URINE NEGATIVE (NEGATIVE); *COCAINE SCREEN URINE NEGATIVE (NEGATIVE); CANNABINOID URINE SCREEN NEGATIVE (NEGATIVE); ECSTASY MDMA SCREEN URINE NEGATIVE (NEGATIVE); METHADONE URINE SCREEN NEGATIVE (NEGATIVE); OPIATES URINE SCREEN PRESUMPTIVE POSITIVE (NEGATIVE); PHENCYCLIDINE URINE SCREEN NEGATIVE (NEGATIVE)
[2024-05-28] MEDS: KCL 20MEQ/100ML PREMIX 100 ML IV SCH (07:48)
[2024-05-28] MEDS: INSULIN LISPRO 100 UNITS/ML SUBCUT SCH (08:20)
[2024-05-28 08:25] LABS: BACTERIA URINE 1+; SQUAMOUS EPITHELIAL CELL URINE FEW /lpf (RARE/1+); YEAST URINE NONE SEEN
[2024-05-28 08:26] LABS: FINE GRANULAR CASTS URINE 0-5 /lpf
[2024-05-28] MEDS: BLOOD SUGAR DIAGNOSTIC STRIP TEST SCH (08:40)
[2024-05-28] MEDS ORDERED: DEXTROSE 50% WATER 50ML SYRINGE IV NR (08:57)
[2024-05-28] MEDS ORDERED: ENOXAPARIN 30MG/0.3ML SYR SUBCUT SCH (09:00)
[2024-05-28 09:04] LABS: BG DEOXYHEMOGLOBIN 4.9 % (0.0-5.0); BG FRACTION INSPIRED OXYGEN 21; BG HCO3 ACT 16.4 mmol/L (21.0-28.0); BG METHEMOGLOBIN 0.1 % (0.5-1.5); BG PCO2 24.1 mmHg (32.0-45.0); BG PO2 75.7 mmHg (83.0-108.0); BG SAMPLE SITE RIGHT RADIAL; BG TOTAL HEMOGLOBIN 11.6 g/dL (12.0-16.0); BG VENT MODE ROOM AIR
[2024-05-28] MEDS: PIPERACILLIN/TAZO 3.375G/50ML 50 ML IV SCH (09:41)
[2024-05-28] MEDS: PANTOPRAZOLE SODIUM 40 MG/VIAL IV SCH (09:41)
[2024-05-28] MEDS: FOLIC ACID 1MG TABLET PO SCH (09:41)
[2024-05-28] MEDS: THIAMINE HCL 100MG TABLET PO SCH (09:45)
[2024-05-28] MEDS ORDERED: LIDOCAINE HCL 1% 10 MG/ML 10ML VIAL ONE (11:36)
[2024-05-28] MEDS: CALCIUM GLUCONATE 100MG/ML 10ML VIAL IV NR (11:42)
[2024-05-28] MEDS: MAGNESIUM 4 G PREMIX 100 ML IV NR (11:42)
[2024-05-28] MEDS: ALBUMIN HUMAN 25GM/500ML (5%) IV NR ×2 (15:29→16:39)
[2024-05-28 16:51] LABS: HEMATOCRIT. 22.4 % (36.0-48.0); HEMOGLOBIN. 7.1 g/dL (12.0-16.0); MEAN CORPUSCULAR HEMOGLOBIN 36.9 pg (28.0-32.0); MEAN CORPUSCULAR HGB CONC 31.6 g/dL (31.0-37.0); MEAN CORPUSCULAR VOLUME 116.9 fL (81.0-99.0); MEAN PLATELET VOLUME 9.1 fl (7.4-10.4); PLATELET 205 x1000/uL (130-400); RED BLOOD CELL COUNT 1.92 mill/uL (4.2-5.4); RED CELL DISTRIBUTION WIDTH 14.9 % (11.6-14.6); WHITE BLOOD COUNT 8.4 x1000/uL (4.5-11.0)
[2024-05-28 16:56] LABS: DIFFERENTIAL COMMENT 1
[2024-05-28 20:30] LABS: CHLORIDE 102 mEq/L (98-107); SODIUM 138 mEq/L (136-145)
[2024-05-28 20:31] LABS: CALCIUM 7.4 mg/dL (8.7-10.4); CARBON DIOXIDE 19 mEq/L (21-32)
[2024-05-28 20:37] LABS: GLUCOSE 240 mg/dL (70-105)
[2024-05-28 20:38] LABS: UREA NITROGEN BLOOD 8 mg/dL (9-23)
[2024-05-28 20:40] LABS: PHOSPHORUS 4.6 mg/dL (2.5-4.9)
[2024-05-28 20:49] LABS: CREATINE KINASE 1515 IU/L (34-145)
[2024-05-28] MEDS: HYDROMORPHONE HCL/PF 2MG/ML INJ IM PRN (21:23)
[2024-05-28 21:54] LABS: BASOPHILS % 0.6 % (0.0-2.0); EOSINOPHILS % 5.5 % (0.0-5.0); HEMATOCRIT. 23.2 % (36.0-48.0); HEMOGLOBIN. 7.7 g/dL (12.0-16.0); LYMPHOCYTES % 7.5 % (20.0-50.0); MEAN CORPUSCULAR HEMOGLOBIN 38.5 pg (28.0-32.0); MEAN CORPUSCULAR HGB CONC 32.9 g/dL (31.0-37.0); MEAN CORPUSCULAR VOLUME 116.8 fL (81.0-99.0); MEAN PLATELET VOLUME 9.7 fl (7.4-10.4); NEUTROPHILS % 78.4 % (40.0-76.0); PLATELET 224 x1000/uL (130-400); RED BLOOD CELL COUNT 1.99 mill/uL (4.2-5.4); RED CELL DISTRIBUTION WIDTH 14.7 % (11.6-14.6); WHITE BLOOD COUNT 13.1 x1000/uL (4.5-11.0)
[2024-05-28 21:57] LABS: DIFFERENTIAL COMMENT 1
[2024-05-28 23:46] LABS: PLATELET ESTIMATE NORMAL
[2024-05-28 23:47] LABS: ANISOCYTOSIS 1+; HYPOCHROMASIA 1+
[2024-05-29] VITALS (81 sets, daily range): BP systolic 61–134; BP diastolic 42–110; PULSE 70–125; RESP 0–33; TEMP 36.2–36.6; O2SAT 88–99
[2024-05-29] MEDS: NOREPINEPHRINE 32 MG in DEXT 5% WATER 218 ML IV PRN (04:33)
[2024-05-29 05:49] LABS: CHLORIDE 103 mEq/L (98-107); POTASSIUM 2.9 mEq/L (3.5-5.1); SODIUM 138 mEq/L (136-145)
[2024-05-29 05:50] LABS: CALCIUM 7.5 mg/dL (8.7-10.4); CARBON DIOXIDE 23 mEq/L (21-32)
[2024-05-29 05:55] LABS: GLUCOSE 287 mg/dL (70-105); UREA NITROGEN BLOOD 7 mg/dL (9-23)
[2024-05-29 05:56] LABS: AMMONIA 51 uMol/L (<32); BASOPHILS % 0.2 % (0.0-2.0); EOSINOPHILS % 3.1 % (0.0-5.0); HEMOGLOBIN. 8.6 g/dL (12.0-16.0); LYMPHOCYTES % 7.1 % (20.0-50.0); MEAN CORPUSCULAR HEMOGLOBIN 38.5 pg (28.0-32.0); MEAN CORPUSCULAR HGB CONC 31.8 g/dL (31.0-37.0); MEAN CORPUSCULAR VOLUME 121.1 fL (81.0-99.0); MEAN PLATELET VOLUME 9.6 fl (7.4-10.4); MONOCYTES % 7.1 % (2.0-8.0); NEUTROPHILS % 82.5 % (40.0-76.0); PLATELET 234 x1000/uL (130-400); RED BLOOD CELL COUNT 2.23 mill/uL (4.2-5.4); RED CELL DISTRIBUTION WIDTH 15.3 % (11.6-14.6); WHITE BLOOD COUNT 17.4 x1000/uL (4.5-11.0)
[2024-05-29 05:57] LABS: ALANINE AMINOTRANSFERASE 47 IU/L (10-49); ALBUMIN 2.5 g/dL (3.2-4.8); ASPARTATE AMINOTRANSFERASE 157 IU/L (<34); BILIRUBIN DIRECT 1.8 mg/dL (<=3.0); BILIRUBIN TOTAL 2.2 mg/dL (0.1-1.0)
[2024-05-29 05:59] LABS: T4 FREE 0.79 ng/dL (0.89-1.76); THYROID STIMULATING HORMONE 1.87 uIU/mL (0.55-4.78)
[2024-05-29] MEDS: VANCOMYCIN 750MG/150ML (BAXTER) IV SCH (06:21)
[2024-05-29 06:22] LABS: INR 2.2; PROTHROMBIN TIME 21.9 sec (9.6-11.0)
[2024-05-29 06:40] LABS: FOLIC ACID (FOLATE) SERUM 6.36 ng/mL (>5.38)
[2024-05-29 06:53] LABS: HEPATITIS B SURFACE ANTIGEN NEGATIVE (Negative)
[2024-05-29 07:02] LABS: DIFFERENTIAL COMMENT 1
[2024-05-29 07:13] LABS: HEPATITIS A AB IGM NEGATIVE (Negative)
[2024-05-29 07:14] LABS: HEPATITIS B CORE AB IGM NEGATIVE (Negative)
[2024-05-29 07:15] LABS: HEPATITIS C AB NON REACTIVE (Neg) (Negative)
[2024-05-29] MEDS ORDERED: POTASSIUM CHLORIDE 40 MEQ in DEXT 5% WATER 230 ML IV ONE (08:45)
[2024-05-29] MEDS ORDERED: ENOXAPARIN 30MG/0.3ML SYR SUBCUT SCH (09:00)
[2024-05-29] MEDS: FERROUS SULFATE 325MG TABLET PO SCH (09:09)
[2024-05-29] MEDS: ASCORBIC ACID 500 MG TABLET PO SCH (09:09)
[2024-05-29] MEDS: KCL 20MEQ/100ML X 2 FOR TOTAL KCL 40MEQ/200ML IV SCH (09:11)
[2024-05-29] MEDS ORDERED: SODIUM CHLORIDE 0.9% 1,000 ML IV ONE (09:15)
[2024-05-29] MEDS ORDERED: NALOXONE HCL 0.4MG/ML VIAL IV PRN (09:45)
[2024-05-29] MEDS: MIDODRINE HCL 5MG TABLET PO SCH (10:09)
[2024-05-29] MEDS: FAMOTIDINE 20MG/2ML VIAL IV SCH (10:10)
[2024-05-29] MEDS: LACTULOSE 20G/30ML UDC PO NR (10:10)
[2024-05-29] MEDS: PHYTONADIONE 5 MG/5ML ORAL SYRINGE PO NR (10:57)
[2024-05-29 12:04] LABS: PHOSPHORUS 4.9 mg/dL (2.5-4.9)
[2024-05-29] MEDS: BLOOD SUGAR DIAGNOSTIC STRIP TEST SCH (12:34)
[2024-05-29] MEDS: INSULIN LISPRO 100 UNITS/ML SUBCUT SCH (12:34)
[2024-05-29 13:14] LABS: AMMONIA 37 uMol/L (<32)
[2024-05-29] MEDS: SODIUM CHLORIDE 0.9% 1,000 ML IV SCH (14:31)
[2024-05-29] MEDS: KCL 10MEQ/50ML PREMIX 50 ML IV SCH (14:32)
[2024-05-29] MEDS: NICOTINE 21MG PATCH TD SCH (15:30)
[2024-05-29] MEDS: LACTULOSE 20G/30ML UDC PO SCH (17:13)
[2024-05-29] MEDS ORDERED: RIFAXIMIN 200MG TABLET PO SCH (21:00)
[2024-05-29] MEDS: RIFAXIMIN 550 MG TABLET PO SCH (21:51)
[2024-05-29] MEDS: IPRATROPIUM/ALBUTEROL 0.5-3(2.5)MG/3ML NEB HHN PRN (23:19)
[2024-05-30] VITALS (103 sets, daily range): BP systolic 38–186; BP diastolic 24–130; PULSE 64–137; RESP 0–29; TEMP 35.6–36.6; O2SAT 88–100
[2024-05-30 00:45] LABS: CARBON DIOXIDE 20 mEq/L (21-32); CHLORIDE 105 mEq/L (98-107); POTASSIUM 3.3 mEq/L (3.5-5.1); SODIUM 139 mEq/L (136-145)
[2024-05-30 00:46] LABS: CALCIUM 7.5 mg/dL (8.7-10.4)
[2024-05-30 00:50] LABS: CREATININE 1.9 mg/dL (0.6-1.0)
[2024-05-30 00:51] LABS: GLUCOSE 100 mg/dL (70-105); LDL CHOLESTEROL 11 mg/dL (5-100); TRIGLYCERIDE 81 mg/dL (0-150); UREA NITROGEN BLOOD 10 mg/dL (9-23)
[2024-05-30 00:52] LABS: CHOLESTEROL 52 mg/dL (<200); HDL CHOLESTEROL < 20 mg/dL (>65)
[2024-05-30 01:03] LABS: BG CARBOXYHEMOGLOBIN 0.5 % (0.5-1.5); BG DEOXYHEMOGLOBIN 23.9 % (0.0-5.0); BG FRACTION INSPIRED OXYGEN 36; BG HCO3 ACT 17.7 mmol/L (21.0-28.0); BG OXYHEMOGLOBIN 75.6 % (94.0-98.0); BG PH 7.252 (7.350-7.450); BG PO2 48.6 mmHg (83.0-108.0); BG SAMPLE SITE RIGHT RADIAL; BG TOTAL HEMOGLOBIN 10.4 g/dL (12.0-16.0); BG VENT MODE NASAL CANNULA
[2024-05-30] MEDS: SODIUM BICARBONATE 8.4% 50MEQ/50ML SYR IV NR ×2 (01:18→05:35)
[2024-05-30 01:25] LABS: HEMATOCRIT. 31.7 % (36.0-48.0); MEAN CORPUSCULAR HEMOGLOBIN 37.8 pg (28.0-32.0); MEAN CORPUSCULAR HGB CONC 31.6 g/dL (31.0-37.0); MEAN CORPUSCULAR VOLUME 119.5 fL (81.0-99.0); MEAN PLATELET VOLUME 9.1 fl (7.4-10.4); PLATELET 160 x1000/uL (130-400); RED BLOOD CELL COUNT 2.65 mill/uL (4.2-5.4); RED CELL DISTRIBUTION WIDTH 15.2 % (11.6-14.6); WHITE BLOOD COUNT 16.4 x1000/uL (4.5-11.0)
[2024-05-30 01:32] LABS: INR 1.8; PROTHROMBIN TIME 18.4 sec (9.6-11.0)
[2024-05-30 01:35] LABS: DIFFERENTIAL COMMENT 1
[2024-05-30] MEDS: POTASSIUM CHLORIDE 40 MEQ in DEXT 5% WATER 230 ML IV NR (02:52)
[2024-05-30] MEDS: LORAZEPAM 2MG/ML INJ IV NR (04:32)
[2024-05-30 04:57] LABS: PLATELET ESTIMATE NORMAL
[2024-05-30 05:22] LABS: BG BASE EXCESS -7.6 mmol/L (-2.0-3.0); BG DEOXYHEMOGLOBIN 8.7 % (0.0-5.0); BG FRACTION INSPIRED OXYGEN 100; BG HCO3 ACT 19.5 mmol/L (21.0-28.0); BG METHEMOGLOBIN 0.3 % (0.5-1.5); BG OXYGEN SATURATION 91.3 % (94.0-98.0); BG PCO2 46.3 mmHg (32.0-45.0); BG PH 7.242 (7.350-7.450); BG SAMPLE SITE RIGHT RADIAL; BG TOTAL HEMOGLOBIN 10.3 g/dL (12.0-16.0); BG VENT MODE MASK - NRB
[2024-05-30 06:54] LABS: INR 1.6; PROTHROMBIN TIME 16.2 sec (9.6-11.0)
[2024-05-30 07:17] LABS: BASOPHILS % 0.6 % (0.0-2.0); EOSINOPHILS % 0.1 % (0.0-5.0); HEMATOCRIT. 28.2 % (36.0-48.0); HEMOGLOBIN. 9.1 g/dL (12.0-16.0); LYMPHOCYTES % 7.7 % (20.0-50.0); MEAN CORPUSCULAR HEMOGLOBIN 37.4 pg (28.0-32.0); MEAN CORPUSCULAR HGB CONC 32.4 g/dL (31.0-37.0); MEAN CORPUSCULAR VOLUME 115.3 fL (81.0-99.0); MEAN PLATELET VOLUME 9.7 fl (7.4-10.4); MONOCYTES % 6.2 % (2.0-8.0); NEUTROPHILS % 85.4 % (40.0-76.0); PLATELET 137 x1000/uL (130-400); RED BLOOD CELL COUNT 2.44 mill/uL (4.2-5.4); RED CELL DISTRIBUTION WIDTH 14.5 % (11.6-14.6); WHITE BLOOD COUNT 15.3 x1000/uL (4.5-11.0)
[2024-05-30 07:35] LABS: DIFFERENTIAL COMMENT 1
[2024-05-30] MEDS: AMIODARONE 150MG/100ML D5W 100 ML IV NR (08:10)
[2024-05-30] MEDS: AMIODARONE HCL 450 MG in DEXT 5% WATER 241 ML IV SCH (08:27)
[2024-05-30 08:38] LABS: CHLORIDE 104 mEq/L (98-107); POTASSIUM 3.4 mEq/L (3.5-5.1); SODIUM 136 mEq/L (136-145)
[2024-05-30 08:39] LABS: CALCIUM 7.2 mg/dL (8.7-10.4); CARBON DIOXIDE 25 mEq/L (21-32)
[2024-05-30 08:44] LABS: CREATININE 1.7 mg/dL (0.6-1.0); GLUCOSE 219 mg/dL (70-105); UREA NITROGEN BLOOD 10 mg/dL (9-23)
[2024-05-30 08:45] LABS: AMMONIA 41 uMol/L (<32)
[2024-05-30 08:46] LABS: ALANINE AMINOTRANSFERASE 62 IU/L (10-49); ALBUMIN 2.2 g/dL (3.2-4.8); ASPARTATE AMINOTRANSFERASE 165 IU/L (<34); BILIRUBIN TOTAL 1.7 mg/dL (0.1-1.0); CREATINE KINASE 1073 IU/L (34-145); PROTEIN TOTAL 4.5 g/dL (6.0-8.3)
[2024-05-30 09:17] LABS: BG CARBOXYHEMOGLOBIN 0.3 % (0.5-1.5); BG DEOXYHEMOGLOBIN 9.8 % (0.0-5.0); BG FRACTION INSPIRED OXYGEN 100; BG HCO3 ACT 21.9 mmol/L (21.0-28.0); BG METHEMOGLOBIN 0.1 % (0.5-1.5); BG OXYGEN SATURATION 90.2 % (94.0-98.0); BG OXYHEMOGLOBIN 89.8 % (94.0-98.0); BG PCO2 48.9 mmHg (32.0-45.0); BG PH 7.269 (7.350-7.450); BG PO2 66.1 mmHg (83.0-108.0); BG SAMPLE SITE RIGHT RADIAL; BG TOTAL HEMOGLOBIN 10.4 g/dL (12.0-16.0); BG VENT MODE MASK - BIPAP
[2024-05-30] MEDS ORDERED: KCL 20MEQ/100ML PREMIX 100 ML IV SCH (09:30)
[2024-05-30 09:47] LABS: PHOSPHORUS 4.2 mg/dL (2.5-4.9)
[2024-05-30] MEDS: DEXT 5%/0.45% NACL 1000ML 1,000 ML IV SCH ×2 (09:49→10:30)
[2024-05-30] MEDS: PHYTONADIONE 10MG/ML INJ SUBCUT SCH (10:28)
[2024-05-30] MEDS: POTASSIUM CHLORIDE 40MEQ in DEXT 5% WATER 250ML IV NR (11:18)
[2024-05-30] MEDS: CALCIUM GLUCONATE 100MG/ML 10ML VIAL IV SCH (11:18)
[2024-05-30] MEDS: DEXT 5%/0.9% NACL 1,000 ML IV SCH (12:00)
[2024-05-30 13:13] LABS: BG BASE EXCESS -4.8 mmol/L (-2.0-3.0); BG CARBOXYHEMOGLOBIN 0.3 % (0.5-1.5); BG DEOXYHEMOGLOBIN 3.4 % (0.0-5.0); BG FRACTION INSPIRED OXYGEN 100; BG HCO3 ACT 20.4 mmol/L (21.0-28.0); BG METHEMOGLOBIN 0.3 % (0.5-1.5); BG OXYGEN SATURATION 96.6 % (94.0-98.0); BG PCO2 38.4 mmHg (32.0-45.0); BG PH 7.344 (7.350-7.450); BG PO2 88.5 mmHg (83.0-108.0); BG SAMPLE SITE RIGHT RADIAL; BG TOTAL HEMOGLOBIN 10.6 g/dL (12.0-16.0); BG VENT MODE VENT - AC
[2024-05-30] MEDS ORDERED: SODIUM BICARBONATE 4% 2.4MEQ/5ML VIAL IV ONE (13:27)
[2024-05-30] MEDS ORDERED: LIDOCAINE HCL 1% 10 MG/ML 10ML VIAL ONE (13:27)
[2024-05-30 13:50] LABS: INR 1.7; PROTHROMBIN TIME 17.5 sec (9.6-11.0)
[2024-05-30] MEDS: PROPOFOL 10MG/ML 100ML 100 ML IV PRN (18:38)
[2024-05-30 21:06] LABS: DIFFERENTIAL COMMENT 1; HEMATOCRIT. 32.6 % (36.0-48.0); HEMOGLOBIN. 10.2 g/dL (12.0-16.0); MEAN CORPUSCULAR HEMOGLOBIN 38.4 pg (28.0-32.0); MEAN CORPUSCULAR HGB CONC 31.4 g/dL (31.0-37.0); MEAN CORPUSCULAR VOLUME 122.3 fL (81.0-99.0); MEAN PLATELET VOLUME 9.8 fl (7.4-10.4); PLATELET 87 x1000/uL (130-400); RED BLOOD CELL COUNT 2.66 mill/uL (4.2-5.4); RED CELL DISTRIBUTION WIDTH 14.9 % (11.6-14.6); WHITE BLOOD COUNT 11.2 x1000/uL (4.5-11.0)
[2024-05-30 21:16] LABS: POTASSIUM 4.3 mEq/L (3.5-5.1)
[2024-05-30 21:17] LABS: CALCIUM 7.6 mg/dL (8.7-10.4); NUCLEATED RED BLOOD CELLS 4 /100 WBC; PLATELET ESTIMATE SLIGHTLY DECREASED
[2024-05-30 21:22] LABS: CREATININE 1.8 mg/dL (0.6-1.0)
[2024-05-31] VITALS (111 sets, daily range): BP systolic 55–138; BP diastolic 37–113; PULSE 62–152; RESP 13–31; TEMP 35.9–37.7; O2SAT 82–100
[2024-05-31 01:25] LABS: BODY FLUID RBC 190 /cu mm (0-2000); BODY FLUID WBC 315 /cu mm (0-200)
[2024-05-31 01:27] LABS: BODY FLUID MONOCYTES 2 %
[2024-05-31 05:52] LABS: AMMONIA 69 uMol/L (<32)
[2024-05-31 05:55] LABS: CHLORIDE 105 mEq/L (98-107); SODIUM 137 mEq/L (136-145)
[2024-05-31 05:56] LABS: CALCIUM 7.6 mg/dL (8.7-10.4); CARBON DIOXIDE 21 mEq/L (21-32)
[2024-05-31 06:01] LABS: GLUCOSE 229 mg/dL (70-105); TRIGLYCERIDE 102 mg/dL (0-150); UREA NITROGEN BLOOD 11 mg/dL (9-23)
[2024-05-31 06:03] LABS: ALANINE AMINOTRANSFERASE 60 IU/L (10-49); ASPARTATE AMINOTRANSFERASE 111 IU/L (<34); BILIRUBIN TOTAL 1.7 mg/dL (0.1-1.0); PROTEIN TOTAL 4.4 g/dL (6.0-8.3)
[2024-05-31] MEDS: LACTULOSE 20G/30ML UDC PO SCH (08:18)
[2024-05-31 09:31] LABS: BG BASE EXCESS -6.3 mmol/L (-2.0-3.0); BG CARBOXYHEMOGLOBIN 0.6 % (0.5-1.5); BG DEOXYHEMOGLOBIN 0.9 % (0.0-5.0); BG FRACTION INSPIRED OXYGEN 100; BG HCO3 ACT 18.3 mmol/L (21.0-28.0); BG METHEMOGLOBIN 0.1 % (0.5-1.5); BG OXYGEN SATURATION 99.1 % (94.0-98.0); BG OXYHEMOGLOBIN 98.4 % (94.0-98.0); BG PCO2 33.4 mmHg (32.0-45.0); BG PH 7.357 (7.350-7.450); BG PO2 145.1 mmHg (83.0-108.0); BG SAMPLE SITE RIGHT RADIAL; BG TOTAL HEMOGLOBIN 10.8 g/dL (12.0-16.0); BG VENT MODE VENT - AC
[2024-05-31 10:22] LABS: HEMATOCRIT. 31.9 % (36.0-48.0); HEMOGLOBIN. 10.3 g/dL (12.0-16.0); MEAN CORPUSCULAR HEMOGLOBIN 37.5 pg (28.0-32.0); MEAN CORPUSCULAR HGB CONC 32.1 g/dL (31.0-37.0); MEAN CORPUSCULAR VOLUME 116.9 fL (81.0-99.0); MEAN PLATELET VOLUME 10.6 fl (7.4-10.4); PLATELET 67 x1000/uL (130-400); RED BLOOD CELL COUNT 2.73 mill/uL (4.2-5.4); RED CELL DISTRIBUTION WIDTH 15.1 % (11.6-14.6)
[2024-05-31 10:45] LABS: DIFFERENTIAL COMMENT 1
[2024-05-31] MEDS: DEXMEDETOMIDINE 400 MCG/100 ML 100 ML IV PRN (12:32)
[2024-05-31 17:56] LABS: ANISOCYTOSIS 1+; PLATELET ESTIMATE MARKEDLY DECREASED
[2024-05-31] MEDS ORDERED: PHENYLEPHRINE 50MG/250ML PMX 250 ML IV PRN (18:15)
[2024-05-31] MEDS: PHENYLEPHRINE 100 MG in DEXT 5% WATER 240 ML IV PRN (19:50)
[2024-05-31] MEDS: VANCOMYCIN 1GM/200ML PMX (BAXTER) IV SCH (21:55)
[2024-05-31] MEDS: ALBUMIN HUMAN 25GM/500ML (5%) IV NR (21:55)
[2024-06-01] VITALS (99 sets, daily range): BP systolic 67–137; BP diastolic 44–84; PULSE 48–78; RESP 14–40; TEMP 36.2–37.3; O2SAT 80–100
[2024-06-01] MEDS ORDERED: DOPAMINE 400MG/250ML PREMIX 250 ML IV PRN (04:30)
[2024-06-01 06:51] LABS: POTASSIUM 3.5 mEq/L (3.5-5.1)
[2024-06-01 06:52] LABS: CALCIUM 8.1 mg/dL (8.7-10.4)
[2024-06-01 06:56] LABS: CREATININE 1.8 mg/dL (0.6-1.0)
[2024-06-01 07:32] LABS: BASOPHILS % 0.2 % (0.0-2.0); HEMATOCRIT. 27.7 % (36.0-48.0); HEMOGLOBIN. 9.2 g/dL (12.0-16.0); LYMPHOCYTES % 22.6 % (20.0-50.0); MEAN CORPUSCULAR HEMOGLOBIN 37.9 pg (28.0-32.0); MEAN CORPUSCULAR HGB CONC 33.3 g/dL (31.0-37.0); MEAN CORPUSCULAR VOLUME 113.8 fL (81.0-99.0); MEAN PLATELET VOLUME 11.9 fl (7.4-10.4); NEUTROPHILS % 67.2 % (40.0-76.0); RED BLOOD CELL COUNT 2.44 mill/uL (4.2-5.4); RED CELL DISTRIBUTION WIDTH 14.8 % (11.6-14.6); WHITE BLOOD COUNT 8.4 x1000/uL (4.5-11.0)
[2024-06-01 07:41] LABS: DIFFERENTIAL COMMENT 1
[2024-06-01 08:21] LABS: INR 2.2; PROTHROMBIN TIME 21.9 sec (9.6-11.0)
[2024-06-01 08:29] LABS: AMMONIA 61 uMol/L (<32)
[2024-06-01 08:32] LABS: ALBUMIN 2.2 g/dL (3.2-4.8)
[2024-06-01 08:33] LABS: ALANINE AMINOTRANSFERASE 40 IU/L (10-49); ASPARTATE AMINOTRANSFERASE 49 IU/L (<34); BILIRUBIN DIRECT 2.1 mg/dL (<=3.0); BILIRUBIN TOTAL 3.7 mg/dL (0.1-1.0); PROTEIN TOTAL 4.4 g/dL (6.0-8.3)
[2024-06-01] MEDS ORDERED: MORPHINE SULFATE 2 MG/ML INJ (NOT FOR IM USE) IV PRN (09:00)
[2024-06-01] MEDS ORDERED: CEFEPIME 1GM IN DEXT 5% 50ML IV SCH (09:15)
[2024-06-01 09:27] LABS: BG BASE EXCESS -4.9 mmol/L (-2.0-3.0); BG CARBOXYHEMOGLOBIN 0.9 % (0.5-1.5); BG DEOXYHEMOGLOBIN 6.7 % (0.0-5.0); BG FRACTION INSPIRED OXYGEN 50; BG HCO3 ACT 18.8 mmol/L (21.0-28.0); BG METHEMOGLOBIN 0.3 % (0.5-1.5); BG OXYGEN SATURATION 93.2 % (94.0-98.0); BG OXYHEMOGLOBIN 92.1 % (94.0-98.0); BG PCO2 30.5 mmHg (32.0-45.0); BG PH 7.408 (7.350-7.450); BG PO2 68.6 mmHg (83.0-108.0); BG SAMPLE SITE RIGHT RADIAL; BG TOTAL HEMOGLOBIN 10.8 g/dL (12.0-16.0); BG VENT MODE VENT - AC
[2024-06-01] MEDS: LORAZEPAM 2MG/ML INJ IV PRN (10:21)
[2024-06-01] MEDS: CLINDAMYCIN 600MG PREMIX 50 ML IV SCH (11:00)
[2024-06-01] MEDS: CEFEPIME 2GM/50ML DUPLEX 50 ML IV SCH (12:52)
[2024-06-01 18:03] LABS: BG BASE EXCESS -8.4 mmol/L (-2.0-3.0); BG CARBOXYHEMOGLOBIN 0.9 % (0.5-1.5); BG DEOXYHEMOGLOBIN 9.9 % (0.0-5.0); BG FRACTION INSPIRED OXYGEN 40; BG HCO3 ACT 15.1 mmol/L (21.0-28.0); BG METHEMOGLOBIN 0.3 % (0.5-1.5); BG OXYHEMOGLOBIN 88.9 % (94.0-98.0); BG PCO2 25.1 mmHg (32.0-45.0); BG PH 7.396 (7.350-7.450); BG PO2 61.3 mmHg (83.0-108.0); BG SAMPLE SITE RIGHT RADIAL; BG TOTAL HEMOGLOBIN 10.7 g/dL (12.0-16.0); BG VENT MODE VENT - AC
[2024-06-02] VITALS (103 sets, daily range): BP systolic 70–128; BP diastolic 54–100; PULSE 61–112; RESP 12–36; TEMP 36.3–36.4; O2SAT 95–100
[2024-06-02 06:39] LABS: CALCIUM 7.8 mg/dL (8.7-10.4)
[2024-06-02 06:43] LABS: CREATININE 1.5 mg/dL (0.6-1.0)
[2024-06-02] MEDS ORDERED: POTASSIUM CHLORIDE 30 MEQ in DEXT 5%/0.9% NACL 985 ML IV SCH (07:15)
[2024-06-02 07:37] LABS: BASOPHILS % 0.4 % (0.0-2.0); EOSINOPHILS % 2.1 % (0.0-5.0); HEMATOCRIT. 32.1 % (36.0-48.0); HEMOGLOBIN. 10.5 g/dL (12.0-16.0); LYMPHOCYTES % 12.8 % (20.0-50.0); MEAN CORPUSCULAR HEMOGLOBIN 37.5 pg (28.0-32.0); MEAN CORPUSCULAR HGB CONC 32.6 g/dL (31.0-37.0); MEAN CORPUSCULAR VOLUME 114.8 fL (81.0-99.0); MEAN PLATELET VOLUME 11.5 fl (7.4-10.4); MONOCYTES % 6.3 % (2.0-8.0); NEUTROPHILS % 78.4 % (40.0-76.0); RED BLOOD CELL COUNT 2.79 mill/uL (4.2-5.4); RED CELL DISTRIBUTION WIDTH 15.5 % (11.6-14.6)
[2024-06-02] MEDS ORDERED: POTASSIUM CHLORIDE 60 MEQ in SODIUM CHLORIDE 0.9% 500 ML IV NR (08:30)
[2024-06-02] MEDS: CITRIC ACID/SODIUM CITRATE SOLN 30ML UDC NG SCH (08:32)
[2024-06-02 08:33] LABS: PLATELET 29 x1000/uL (130-400)
[2024-06-02] MEDS: DEXT 5% WATER + KCL 20MEQ/L 1,000 ML IV SCH (09:06)
[2024-06-02] MEDS ORDERED: MORPHINE SULFATE 2 MG/ML INJ (NOT FOR IM USE) IV NR (09:30)
[2024-06-02] MEDS: KCL 20MEQ/100ML PREMIX 100 ML IV NR (09:56)
[2024-06-02 10:27] LABS: BG BASE EXCESS -7.7 mmol/L (-2.0-3.0); BG CARBOXYHEMOGLOBIN 0.8 % (0.5-1.5); BG DEOXYHEMOGLOBIN 4.2 % (0.0-5.0); BG FRACTION INSPIRED OXYGEN 40; BG HCO3 ACT 16.4 mmol/L (21.0-28.0); BG METHEMOGLOBIN 0.3 % (0.5-1.5); BG OXYGEN SATURATION 95.8 % (94.0-98.0); BG OXYHEMOGLOBIN 94.7 % (94.0-98.0); BG PCO2 29.1 mmHg (32.0-45.0); BG PH 7.369 (7.350-7.450); BG PO2 82.5 mmHg (83.0-108.0); BG SAMPLE SITE RIGHT RADIAL; BG TOTAL HEMOGLOBIN 11.2 g/dL (12.0-16.0); BG VENT MODE VENT - AC
[2024-06-02 10:42] LABS: ALANINE AMINOTRANSFERASE 39 IU/L (10-49); ALBUMIN 1.9 g/dL (3.2-4.8); ASPARTATE AMINOTRANSFERASE 47 IU/L (<34); BILIRUBIN DIRECT 2.4 mg/dL (<=3.0); BILIRUBIN TOTAL 3.8 mg/dL (0.1-1.0); PHOSPHORUS 2.8 mg/dL (2.5-4.9); PROTEIN TOTAL 4.2 g/dL (6.0-8.3)
[2024-06-02 10:46] LABS: T4 FREE 1.04 ng/dL (0.89-1.76); THYROID STIMULATING HORMONE 6.02 uIU/mL (0.55-4.78)
[2024-06-02 11:14] LABS: INR 2.3; PROTHROMBIN TIME 22.8 sec (9.6-11.0)
[2024-06-02 11:31] LABS: AMMONIA 38 uMol/L (<32)
[2024-06-02] MEDS: ALBUMIN HUMAN 25GM/500ML (5%) IV NR (14:05)
[2024-06-02 15:30] LABS: PLATELET 34 x1000/uL (130-400)
[2024-06-03] VITALS (102 sets, daily range): BP systolic 70–121; BP diastolic 42–90; PULSE 65–104; RESP 10–34; TEMP 36.1–36.9; O2SAT 96–100
[2024-06-03 06:50] LABS: HEMATOCRIT. 29.7 % (36.0-48.0); HEMOGLOBIN. 9.7 g/dL (12.0-16.0); MEAN CORPUSCULAR HEMOGLOBIN 37.4 pg (28.0-32.0); MEAN CORPUSCULAR HGB CONC 32.7 g/dL (31.0-37.0); MEAN CORPUSCULAR VOLUME 114.3 fL (81.0-99.0); RED CELL DISTRIBUTION WIDTH 14.8 % (11.6-14.6)
[2024-06-03 06:56] LABS: INR 2.1; PROTHROMBIN TIME 21.3 sec (9.6-11.0)
[2024-06-03 07:07] LABS: AMMONIA 85 uMol/L (<32)
[2024-06-03 07:16] LABS: CHLORIDE 110 mEq/L (98-107); POTASSIUM 3.3 mEq/L (3.5-5.1); SODIUM 140 mEq/L (136-145)
[2024-06-03 07:19] LABS: CARBON DIOXIDE 17 mEq/L (21-32)
[2024-06-03 07:20] LABS: CALCIUM 8.3 mg/dL (8.7-10.4)
[2024-06-03 07:24] LABS: CREATININE 1.6 mg/dL (0.6-1.0)
[2024-06-03 07:25] LABS: GLUCOSE 160 mg/dL (70-105); UREA NITROGEN BLOOD 12 mg/dL (9-23)
[2024-06-03 07:26] LABS: ALANINE AMINOTRANSFERASE 38 IU/L (10-49); ASPARTATE AMINOTRANSFERASE 44 IU/L (<34); DIFFERENTIAL COMMENT 1
[2024-06-03 07:27] LABS: BILIRUBIN DIRECT 2.4 mg/dL (<=3.0); BILIRUBIN TOTAL 4.4 mg/dL (0.1-1.0); PROTEIN TOTAL 4.2 g/dL (6.0-8.3)
[2024-06-03 08:54] LABS: MEAN PLATELET VOLUME 12.3 fl (7.4-10.4); PLATELET 28 x1000/uL (130-400)
[2024-06-03] MEDS: CITRIC ACID/SODIUM CITRATE SOLN 30ML UDC NG SCH (09:51)
[2024-06-03] MEDS: FUROSEMIDE 40MG/4ML VIAL IVP NR (09:52)
[2024-06-03] MEDS: POTASSIUM CHLORIDE 20MEQ/PACKET NG NR (09:55)
[2024-06-03] MEDS: LACTULOSE 20G/30ML UDC GT SCH (14:17)
[2024-06-03 17:25] LABS: PLATELET ESTIMATE MARKEDLY DECREASED
[2024-06-04] VITALS (104 sets, daily range): BP systolic 70–131; BP diastolic 30–92; PULSE 80–125; RESP 8–36; TEMP 36.4–37.3; O2SAT 96–100
[2024-06-04] MEDS: ACETAMINOPHEN 325MG TABLET PO PRN (00:08)
[2024-06-04 05:49] LABS: CHLORIDE 108 mEq/L (98-107); HEMATOCRIT. 26.9 % (36.0-48.0); HEMOGLOBIN. 8.8 g/dL (12.0-16.0); MEAN CORPUSCULAR HEMOGLOBIN 37.7 pg (28.0-32.0); MEAN CORPUSCULAR HGB CONC 32.7 g/dL (31.0-37.0); MEAN CORPUSCULAR VOLUME 115.2 fL (81.0-99.0); MEAN PLATELET VOLUME 12.4 fl (7.4-10.4); POTASSIUM 3.1 mEq/L (3.5-5.1); RED BLOOD CELL COUNT 2.34 mill/uL (4.2-5.4); RED CELL DISTRIBUTION WIDTH 14.9 % (11.6-14.6); SODIUM 140 mEq/L (136-145)
[2024-06-04 05:51] LABS: CARBON DIOXIDE 20 mEq/L (21-32); INR 2.3; PROTHROMBIN TIME 22.4 sec (9.6-11.0)
[2024-06-04 05:52] LABS: CALCIUM 8.1 mg/dL (8.7-10.4)
[2024-06-04 05:57] LABS: ALANINE AMINOTRANSFERASE 38 IU/L (10-49); CREATININE 1.9 mg/dL (0.6-1.0); GLUCOSE 165 mg/dL (70-105); UREA NITROGEN BLOOD 15 mg/dL (9-23)
[2024-06-04 05:58] LABS: ALBUMIN 1.8 g/dL (3.2-4.8); ASPARTATE AMINOTRANSFERASE 42 IU/L (<34)
[2024-06-04 06:00] LABS: BILIRUBIN TOTAL 3.9 mg/dL (0.1-1.0); PROTEIN TOTAL 4.1 g/dL (6.0-8.3)
[2024-06-04 06:01] LABS: AMMONIA 45 uMol/L (<32)
[2024-06-04 07:02] LABS: DIFFERENTIAL COMMENT 1; PLATELET 34 x1000/uL (130-400)
[2024-06-04] MEDS: MAGNESIUM 2 G PREMIX 50 ML IV NR (09:16)
[2024-06-04] MEDS: POTASSIUM CHLORIDE 20MEQ/PACKET PO NR (09:22)
[2024-06-04 11:11] LABS: ALANINE AMINOTRANSFERASE 38 IU/L (10-49); ALBUMIN 1.8 g/dL (3.2-4.8); ASPARTATE AMINOTRANSFERASE 43 IU/L (<34); BILIRUBIN DIRECT 2.1 mg/dL (<=3.0); BILIRUBIN TOTAL 3.7 mg/dL (0.1-1.0)
[2024-06-04 11:12] LABS: PROTEIN TOTAL 4.1 g/dL (6.0-8.3)
[2024-06-04 12:33] LABS: PLATELET ESTIMATE MARKEDLY DECREASED
[2024-06-04] MEDS: OCTREOTIDE 1,000 MCG in SODIUM CHLORIDE 0.9% 98 ML IV SCH (13:45)
[2024-06-04] MEDS: MIDODRINE HCL 5MG TABLET PO SCH (13:46)
[2024-06-04] MEDS: PHYTONADIONE 10 MG in DEXTROSE 5% WATER 49 ML IV NR (14:17)
[2024-06-04] MEDS: ALBUMIN HUMAN 25GM/100ML (25%) IV NR (15:37)
[2024-06-04 20:27] LABS: DIFFERENTIAL COMMENT 1
[2024-06-04] MEDS: RIFAXIMIN 550 MG TABLET PO SCH (21:10)
[2024-06-04] MEDS: CEFEPIME 2GM/50ML DUPLEX 50 ML IV SCH (21:11)
[2024-06-05] VITALS (100 sets, daily range): BP systolic 61–124; BP diastolic 46–91; PULSE 83–133; RESP 20–42; TEMP 36.4–36.9; O2SAT 91–100
[2024-06-05 04:58] LABS: AMMONIA 42 uMol/L (<32)
[2024-06-05 05:18] LABS: POTASSIUM 3.6 mEq/L (3.5-5.1)
[2024-06-05 05:19] LABS: CALCIUM 8.6 mg/dL (8.7-10.4)
[2024-06-05 05:24] LABS: CREATININE 1.9 mg/dL (0.6-1.0)
[2024-06-05 05:34] LABS: BILIRUBIN TOTAL 5.1 mg/dL (0.1-1.0)
[2024-06-05] MEDS: PHYTONADIONE 10MG/ML INJ SUBCUT SCH (08:32)
[2024-06-05] MEDS: PANTOPRAZOLE SODIUM 40 MG/VIAL IV SCH (08:32)
[2024-06-05 09:38] LABS: BG BASE EXCESS -7.6 mmol/L (-2.0-3.0); BG CARBOXYHEMOGLOBIN 1.6 % (0.5-1.5); BG DEOXYHEMOGLOBIN 6.2 % (0.0-5.0); BG FRACTION INSPIRED OXYGEN 40; BG HCO3 ACT 16.9 mmol/L (21.0-28.0); BG METHEMOGLOBIN 0.2 % (0.5-1.5); BG OXYGEN SATURATION 93.7 % (94.0-98.0); BG PCO2 30.2 mmHg (32.0-45.0); BG PH 7.366 (7.350-7.450); BG PO2 73.4 mmHg (83.0-108.0); BG SAMPLE SITE RIGHT RADIAL; BG TOTAL HEMOGLOBIN 8.4 g/dL (12.0-16.0); BG TOTAL RESPIRATORY RATE 32 b/min; BG VENT MODE VENT - SIMV
[2024-06-05] MEDS ORDERED: KCL 20MEQ/100ML PREMIX 100 ML IV SCH (11:00)
[2024-06-05 11:29] LABS: BASOPHILS % 0.3 % (0.0-2.0); EOSINOPHILS % 0.7 % (0.0-5.0); HEMATOCRIT. 24.4 % (36.0-48.0); HEMOGLOBIN. 7.7 g/dL (12.0-16.0); MEAN CORPUSCULAR HEMOGLOBIN 37.7 pg (28.0-32.0); MEAN CORPUSCULAR HGB CONC 31.7 g/dL (31.0-37.0); MEAN PLATELET VOLUME 12.4 fl (7.4-10.4); RED BLOOD CELL COUNT 2.05 mill/uL (4.2-5.4); WHITE BLOOD COUNT 24.2 x1000/uL (4.5-11.0)
[2024-06-05 11:32] LABS: DIFFERENTIAL COMMENT 1
[2024-06-05 11:35] LABS: MEAN CORPUSCULAR VOLUME 118.7 fL (81.0-99.0); NEUTROPHILS % 88.4 % (40.0-76.0)
[2024-06-05 11:36] LABS: LYMPHOCYTES % 7.2 % (20.0-50.0); MONOCYTES % 3.4 % (2.0-8.0)
[2024-06-05 11:37] LABS: ADD RBC MORPHOLOGY NO
[2024-06-05] MEDS: METOCLOPRAMIDE HCL 10MG/2ML VIAL IV SCH (12:08)
[2024-06-05] MEDS ORDERED: MORPHINE SULFATE 2 MG/ML INJ (NOT FOR IM USE) IV SCH (13:30)
[2024-06-05] MEDS: SODIUM BICARBONATE 100 MEQ in DEXTROSE 5% WATER 900 ML IV SCH (13:46)
[2024-06-05 14:36] LABS: LACTATE DEHYDROGENASE 468 IU/L (120-246)
[2024-06-05] MEDS: POTASSIUM CHLORIDE 40MEQ in DEXT 5% WATER 250ML IV SCH (15:07)
[2024-06-05] MEDS: ALBUMIN HUMAN 12.5G/250ML (5%) IV NR (18:15)
[2024-06-05] MEDS ORDERED: HYDROCODONE/ACETAMINOPHEN 5/325MG TABLET PO PRN (21:15)
[2024-06-05] MEDS ORDERED: NALOXONE HCL 0.4MG/ML VIAL IV PRN (21:30)
[2024-06-05] MEDS: HYDROCODONE/ACETAMINOPHEN 5/325MG TABLET NG PRN (21:36)
[2024-06-06] VITALS (110 sets, daily range): BP systolic 52–125; BP diastolic 26–98; PULSE 102–153; RESP 19–41; TEMP 36.1–37.2; O2SAT 90–100
[2024-06-06] MEDS: DEXMEDETOMIDINE 400 MCG/100 ML 100 ML IV PRN (01:05)
[2024-06-06 05:00] LABS: AMMONIA 84 uMol/L (<32)
[2024-06-06 05:06] LABS: CARBON DIOXIDE 14 mEq/L (21-32); CHLORIDE 106 mEq/L (98-107); POTASSIUM 4.3 mEq/L (3.5-5.1); SODIUM 140 mEq/L (136-145)
[2024-06-06 05:11] LABS: CREATININE 2.2 mg/dL (0.6-1.0)
[2024-06-06 05:12] LABS: GLUCOSE 167 mg/dL (70-105); UREA NITROGEN BLOOD 17 mg/dL (9-23)
[2024-06-06 05:13] LABS: ALANINE AMINOTRANSFERASE 30 IU/L (10-49); ALBUMIN 2.2 g/dL (3.2-4.8)
[2024-06-06 05:14] LABS: ASPARTATE AMINOTRANSFERASE 39 IU/L (<34); BILIRUBIN DIRECT 3.2 mg/dL (<=3.0); BILIRUBIN TOTAL 5.7 mg/dL (0.1-1.0); PROTEIN TOTAL 4.4 g/dL (6.0-8.3)
[2024-06-06 05:33] LABS: INR 3.4; PROTHROMBIN TIME 32.2 sec (9.6-11.0)
[2024-06-06 06:39] LABS: PLATELET 42 x1000/uL (130-400)
[2024-06-06] MEDS ORDERED: ETOMIDATE 2MG/ML 10ML VIAL IV ONE (07:01)
[2024-06-06 08:08] LABS: HEMATOCRIT. 24.3 % (36.0-48.0); HEMOGLOBIN. 7.5 g/dL (12.0-16.0); MEAN CORPUSCULAR HEMOGLOBIN 38.5 pg (28.0-32.0); MEAN CORPUSCULAR HGB CONC 30.9 g/dL (31.0-37.0); MEAN CORPUSCULAR VOLUME 124.7 fL (81.0-99.0); MEAN PLATELET VOLUME 13.3 fl (7.4-10.4); PLATELET 52 x1000/uL (130-400); RED BLOOD CELL COUNT 1.95 mill/uL (4.2-5.4); WHITE BLOOD COUNT 37.2 x1000/uL (4.5-11.0)
[2024-06-06] MEDS: ALBUMIN HUMAN 25GM/100ML (25%) IV NR (08:14)
[2024-06-06 09:10] LABS: DIFFERENTIAL COMMENT 1
[2024-06-06] MEDS: SODIUM BICARBONATE 8.4% 50MEQ/50ML SYR IV SCH (09:47)
[2024-06-06 12:05] LABS: LACTIC ACID 12.5 mmol/L (0.4-2.0)
[2024-06-06] MEDS: PHYTONADIONE 10 MG in DEXTROSE 5% WATER 49 ML IV NR (13:00)
[2024-06-06] MEDS ORDERED: METRONIDAZOLE 500 MG PREMIX 100 ML IV SCH (16:00)
[2024-06-06 16:14] LABS: NUCLEATED RED BLOOD CELLS 6 /100 WBC; PLATELET ESTIMATE DECREASED
[2024-06-06] MEDS: VANCOMYCIN 1.5GM/250ML IV NR (18:28)
[2024-06-06] MEDS ORDERED: AMIODARONE 360MG/200ML 200 ML IV SCH (21:00)
[2024-06-06] MEDS: MEROPENEM 500MG/50ML 50 ML IV SCH (21:00)
[2024-06-06] MEDS ORDERED: FENTANYL 2500MCG/250ML PMX 250 ML IV PRN (21:30)
[2024-06-06 21:51] LABS: BG BASE EXCESS -10.3 mmol/L (-2.0-3.0); BG CARBOXYHEMOGLOBIN 0.6 % (0.5-1.5); BG DEOXYHEMOGLOBIN 1.2 % (0.0-5.0); BG FRACTION INSPIRED OXYGEN 100; BG METHEMOGLOBIN 0.4 % (0.5-1.5); BG OXYGEN SATURATION 98.8 % (94.0-98.0); BG OXYHEMOGLOBIN 97.8 % (94.0-98.0); BG PH 7.253 (7.350-7.450); BG PO2 145.4 mmHg (83.0-108.0); BG SAMPLE SITE LEFT RADIAL; BG TOTAL RESPIRATORY RATE 20 b/min; BG VENT MODE VENT - AC
[2024-06-06] MEDS: AMIODARONE 150MG/100ML D5W 100 ML IV NR ×2 (21:57→23:37)
[2024-06-06] MEDS: PROPOFOL 10MG/ML 100ML 100 ML IV PRN (21:59)
[2024-06-06] MEDS ORDERED: AMIODARONE HCL 450 MG in DEXT 5% WATER 241 ML IV NR (22:00)
[2024-06-06] MEDS: FENTANYL CITRATE/PF 2,500 MCG in SODIUM CHLORIDE 0.9% 200 ML IV PRN (22:01)
[2024-06-06] MEDS: AMIODARONE HCL 450 MG in DEXT 5% WATER 241 ML IV NR (23:37)
[2024-06-07] VITALS (115 sets, daily range): BP systolic 79–200; BP diastolic 27–185; PULSE 64–125; RESP 19–29; TEMP 36.1–36.8; O2SAT 92–100
[2024-06-07] MEDS: MIDODRINE HCL 5MG TABLET PO SCH (00:15)
[2024-06-07] MEDS: INSULIN LISPRO 100 UNITS/ML SUBCUT SCH (00:15)
[2024-06-07] MEDS: VASOPRESSIN 20 UNIT in SODIUM CHLORIDE 0.9% 99 ML IV PRN (00:24)
[2024-06-07] MEDS: ALBUMIN HUMAN 25GM/100ML (25%) IV SCH (01:00)
[2024-06-07 04:37] LABS: CARBON DIOXIDE 19 mEq/L (21-32); CHLORIDE 101 mEq/L (98-107); POTASSIUM 3.6 mEq/L (3.5-5.1); SODIUM 136 mEq/L (136-145)
[2024-06-07 04:38] LABS: CALCIUM 9.5 mg/dL (8.7-10.4)
[2024-06-07 04:42] LABS: CREATININE 2.5 mg/dL (0.6-1.0); GLUCOSE 260 mg/dL (70-105); INR 2.9; PROTHROMBIN TIME 28.3 sec (9.6-11.0)
[2024-06-07 04:43] LABS: TRIGLYCERIDE 45 mg/dL (0-150); UREA NITROGEN BLOOD 19 mg/dL (9-23)
[2024-06-07 04:44] LABS: ALANINE AMINOTRANSFERASE 20 IU/L (10-49); ALBUMIN 2.8 g/dL (3.2-4.8); AMMONIA 95 uMol/L (<32); ASPARTATE AMINOTRANSFERASE 27 IU/L (<34); LACTATE DEHYDROGENASE 384 IU/L (120-246); MEAN CORPUSCULAR HEMOGLOBIN 37.2 pg (28.0-32.0); MEAN CORPUSCULAR HGB CONC 30.3 g/dL (31.0-37.0); MEAN CORPUSCULAR VOLUME 122.9 fL (81.0-99.0); RED BLOOD CELL COUNT 1.66 mill/uL (4.2-5.4); RED CELL DISTRIBUTION WIDTH 17.6 % (11.6-14.6); WHITE BLOOD COUNT 30.7 x1000/uL (4.5-11.0)
[2024-06-07 04:45] LABS: BILIRUBIN DIRECT 2.6 mg/dL (<=3.0); PHOSPHORUS 3.1 mg/dL (2.5-4.9); PROTEIN TOTAL 4.9 g/dL (6.0-8.3)
[2024-06-07 04:50] LABS: BILIRUBIN TOTAL 3.8 mg/dL (0.1-1.0)
[2024-06-07 04:51] LABS: HEMATOCRIT 20.4 % (36.0-48.0); HEMOGLOBIN 6.2 g/dL (12.0-16.0)
[2024-06-07] MEDS: BLOOD SUGAR DIAGNOSTIC STRIP TEST SCH (04:53)
[2024-06-07] MEDS: SODIUM BICARBONATE 150 MEQ in DEXTROSE 5% WATER 850 ML IV SCH (05:14)
[2024-06-07 05:16] LABS: PLATELET 56 x1000/uL (130-400)
[2024-06-07] MEDS: HYDROCORTISONE SOD SUCCINATE 100 MG/2 ML VIAL IV SCH (06:07)
[2024-06-07] MEDS: FAMOTIDINE 20MG/2ML VIAL IV SCH (08:50)
[2024-06-07 09:47] LABS: BG BASE EXCESS -5.1 mmol/L (-2.0-3.0); BG CARBOXYHEMOGLOBIN 1.6 % (0.5-1.5); BG DEOXYHEMOGLOBIN 0.9 % (0.0-5.0); BG FRACTION INSPIRED OXYGEN 80; BG HCO3 ACT 19.6 mmol/L (21.0-28.0); BG METHEMOGLOBIN 0.2 % (0.5-1.5); BG OXYGEN SATURATION 99.1 % (94.0-98.0); BG OXYHEMOGLOBIN 97.3 % (94.0-98.0); BG PCO2 34.1 mmHg (32.0-45.0); BG PH 7.377 (7.350-7.450); BG PO2 130.8 mmHg (83.0-108.0); BG SAMPLE SITE LEFT RADIAL; BG TOTAL HEMOGLOBIN 5.9 g/dL (12.0-16.0); BG VENT MODE VENT - AC
[2024-06-07] MEDS ORDERED: LIDOCAINE HCL 1% 10 MG/ML 10ML VIAL ONE (10:31)
[2024-06-07] MEDS: LACTULOSE 20G/30ML UDC GT SCH (13:42)
[2024-06-07 16:22] LABS: HEMOGLOBIN 6.1 g/dL (12.0-16.0)
[2024-06-07 16:26] LABS: INR 1.9; PROTHROMBIN TIME 19.3 sec (9.6-11.0)
[2024-06-07] MEDS: PHYTONADIONE 10 MG in DEXTROSE 5% WATER 49 ML IV NR (19:01)
[2024-06-07] MEDS: OCTREOTIDE 1,000 MCG in SODIUM CHLORIDE 0.9% 98 ML IV SCH (19:02)
[2024-06-07 21:19] LABS: HEMATOCRIT 17.7 % (36.0-48.0); HEMOGLOBIN 5.7 g/dL (12.0-16.0)
[2024-06-08] VITALS (117 sets, daily range): BP systolic 72–150; BP diastolic 17–117; PULSE 64–89; RESP 15–30; TEMP 36.114–36.7; O2SAT 95–100
[2024-06-08] MEDS: PROPOFOL 10MG/ML 100ML 100 ML IV PRN (03:45)
[2024-06-08 07:06] LABS: CHLORIDE 101 mEq/L (98-107); POTASSIUM 3.1 mEq/L (3.5-5.1); SODIUM 141 mEq/L (136-145)
[2024-06-08 07:07] LABS: CARBON DIOXIDE 26 mEq/L (21-32)
[2024-06-08 07:12] LABS: CREATININE 2.1 mg/dL (0.6-1.0); GLUCOSE 106 mg/dL (70-105)
[2024-06-08 07:13] LABS: AMMONIA 53 uMol/L (<32); TRIGLYCERIDE 100 mg/dL (0-150); UREA NITROGEN BLOOD 14 mg/dL (9-23)
[2024-06-08 07:14] LABS: ALANINE AMINOTRANSFERASE 19 IU/L (10-49); ALBUMIN 3.3 g/dL (3.2-4.8); ASPARTATE AMINOTRANSFERASE 38 IU/L (<34)
[2024-06-08 07:15] LABS: BILIRUBIN DIRECT 4.4 mg/dL (<=3.0); PROTEIN TOTAL 5.4 g/dL (6.0-8.3)
[2024-06-08 07:20] LABS: HEMATOCRIT. 28.4 % (36.0-48.0); HEMOGLOBIN. 9.4 g/dL (12.0-16.0); MEAN CORPUSCULAR HEMOGLOBIN 31.9 pg (28.0-32.0); MEAN CORPUSCULAR HGB CONC 33.2 g/dL (31.0-37.0); MEAN CORPUSCULAR VOLUME 96.3 fL (81.0-99.0); RED BLOOD CELL COUNT 2.95 mill/uL (4.2-5.4); RED CELL DISTRIBUTION WIDTH 23.4 % (11.6-14.6)
[2024-06-08 08:08] LABS: DIFFERENTIAL COMMENT 1
[2024-06-08] MEDS: AMIODARONE 200MG TABLET NG SCH (08:29)
[2024-06-08] MEDS: POTASSIUM CHLORIDE 20MEQ TABLET SR PO NR (08:29)
[2024-06-08] MEDS ORDERED: SODIUM BICARBONATE 4% 2.4MEQ/5ML VIAL IV ONE (11:16)
[2024-06-08] MEDS ORDERED: LIDOCAINE HCL 1% 10 MG/ML 10ML VIAL ONE (11:16)
[2024-06-08 11:44] LABS: INR 1.7; PROTHROMBIN TIME 17.7 sec (9.6-11.0)
[2024-06-08 12:30] LABS: NUCLEATED RED BLOOD CELLS 3 /100 WBC
[2024-06-08 12:31] LABS: ANISOCYTOSIS 3+
[2024-06-08 12:32] LABS: PLATELET 32 x1000/uL (130-400); PLATELET ESTIMATE MARKEDLY DECREASED
[2024-06-08] MEDS: MENTHOL/LANOLIN/CALAMINE/ZN OX OINT 71GM TOP SCH (13:59)
[2024-06-08 14:44] LABS: AMYLASE BODY FLUID < 20 IU/L; PROTEIN BODY FLUID < 2.0 gm/dL
[2024-06-08 23:42] LABS: BODY FLUID MONOCYTES 2 %; BODY FLUID RBC 2750 /cu mm (0-2000); BODY FLUID WBC 125 /cu mm (0-200)
[2024-06-09] VITALS (106 sets, daily range): BP systolic 84–193; BP diastolic 36–86; PULSE 74–121; RESP 17–38; TEMP 35.66952–36.6696; O2SAT 87–100
[2024-06-09 06:18] LABS: HEMATOCRIT. 31.9 % (36.0-48.0); HEMOGLOBIN. 10.6 g/dL (12.0-16.0); MEAN CORPUSCULAR HEMOGLOBIN 33.1 pg (28.0-32.0); MEAN CORPUSCULAR HGB CONC 33.2 g/dL (31.0-37.0); MEAN CORPUSCULAR VOLUME 99.6 fL (81.0-99.0); RED CELL DISTRIBUTION WIDTH 24.7 % (11.6-14.6); WHITE BLOOD COUNT 10.2 x1000/uL (4.5-11.0)
[2024-06-09 06:31] LABS: POTASSIUM 3.4 mEq/L (3.5-5.1)
[2024-06-09 06:33] LABS: CALCIUM 9.9 mg/dL (8.7-10.4)
[2024-06-09 06:37] LABS: CREATININE 2.3 mg/dL (0.6-1.0); DIFFERENTIAL COMMENT 1
[2024-06-09 06:40] LABS: AMMONIA 119 uMol/L (<32)
[2024-06-09 06:45] LABS: BILIRUBIN TOTAL 6.1 mg/dL (0.1-1.0)
[2024-06-09 07:27] LABS: NUCLEATED RED BLOOD CELLS 17 /100 WBC
[2024-06-09 07:28] LABS: ANISOCYTOSIS 2+; PLATELET ESTIMATE MARKEDLY DECREASED
[2024-06-09 07:30] LABS: MEAN PLATELET VOLUME 13.3 fl (7.4-10.4); PLATELET 36 x1000/uL (130-400)
[2024-06-09 09:16] LABS: ALANINE AMINOTRANSFERASE 23 IU/L (10-49); ASPARTATE AMINOTRANSFERASE 68 IU/L (<34)
[2024-06-09 09:17] LABS: ALBUMIN 2.7 g/dL (3.2-4.8); BILIRUBIN DIRECT 4.3 mg/dL (<=3.0); BILIRUBIN TOTAL 6.1 mg/dL (0.1-1.0); PROTEIN TOTAL 4.9 g/dL (6.0-8.3)
[2024-06-09 10:37] LABS: INR 2.2; PROTHROMBIN TIME 22.3 sec (9.6-11.0)
[2024-06-09] MEDS: DEXTROSE 50% WATER 50ML SYRINGE IV PRN (12:09)
[2024-06-09] MEDS: LACTULOSE 20G/30ML UDC NG SCH (13:09)
[2024-06-09] MEDS: RIFAXIMIN 550 MG TABLET NG SCH (20:40)
[2024-06-09] MEDS: POTASSIUM CHLORIDE 20MEQ/PACKET PO NR (20:47)
[2024-06-09] MEDS: AMIODARONE 150MG/100ML D5W 100 ML IV NR (20:47)
[2024-06-10] VITALS (101 sets, daily range): BP systolic 96–135; BP diastolic 34–113; PULSE 95–115; RESP 21–36; TEMP 36.7–38.7; O2SAT 92–100
[2024-06-10] MEDS: ACETAMINOPHEN 325MG TABLET PO PRN (01:06)
[2024-06-10 04:10] LABS: HEMATOCRIT. 36.8 % (36.0-48.0); HEMOGLOBIN. 11.6 g/dL (12.0-16.0); MEAN CORPUSCULAR HEMOGLOBIN 33.2 pg (28.0-32.0); MEAN CORPUSCULAR HGB CONC 31.6 g/dL (31.0-37.0); MEAN PLATELET VOLUME 12.8 fl (7.4-10.4); RED CELL DISTRIBUTION WIDTH 25.8 % (11.6-14.6)
[2024-06-10 04:16] LABS: CHLORIDE 102 mEq/L (98-107); POTASSIUM 4.2 mEq/L (3.5-5.1); SODIUM 143 mEq/L (136-145)
[2024-06-10 04:17] LABS: CARBON DIOXIDE 18 mEq/L (21-32)
[2024-06-10 04:18] LABS: CALCIUM 10.1 mg/dL (8.7-10.4)
[2024-06-10 04:21] LABS: DIFFERENTIAL COMMENT 1
[2024-06-10 04:22] LABS: CREATININE 2.4 mg/dL (0.6-1.0); GLUCOSE 101 mg/dL (70-105); PLATELET 28 x1000/uL (130-400); UREA NITROGEN BLOOD 13 mg/dL (9-23)
[2024-06-10 04:24] LABS: ALANINE AMINOTRANSFERASE 34 IU/L (10-49); ALBUMIN 2.6 g/dL (3.2-4.8); ASPARTATE AMINOTRANSFERASE 95 IU/L (<34)
[2024-06-10 04:25] LABS: BILIRUBIN DIRECT 4.6 mg/dL (<=3.0); BILIRUBIN TOTAL 6.5 mg/dL (0.1-1.0); PROTEIN TOTAL 4.7 g/dL (6.0-8.3)
[2024-06-10 04:27] LABS: AMMONIA 53 uMol/L (<32)
[2024-06-10 09:28] LABS: ANISOCYTOSIS 2+; NUCLEATED RED BLOOD CELLS 121 /100 WBC; PLATELET ESTIMATE MARKEDLY DECREASED
[2024-06-10 09:41] LABS: BG BASE EXCESS -10.5 mmol/L (-2.0-3.0); BG CARBOXYHEMOGLOBIN 0.9 % (0.5-1.5); BG DEOXYHEMOGLOBIN 11.4 % (0.0-5.0); BG FRACTION INSPIRED OXYGEN 45; BG OXYGEN SATURATION 88.5 % (94.0-98.0); BG OXYHEMOGLOBIN 87.7 % (94.0-98.0); BG PCO2 32.1 mmHg (32.0-45.0); BG PH 7.287 (7.350-7.450); BG PO2 60.4 mmHg (83.0-108.0); BG SAMPLE SITE LEFT RADIAL; BG TOTAL HEMOGLOBIN 12.7 g/dL (12.0-16.0); BG TOTAL RESPIRATORY RATE 26 b/min; BG VENT MODE VENT - AC
[2024-06-10] MEDS: SODIUM BICARBONATE 150 MEQ in DEXTROSE 5% WATER 850 ML IV ONE (12:08)
[2024-06-10] MEDS: VANCOMYCIN 1.25GM/250ML IV NR (17:55)
[2024-06-10] MEDS: METOCLOPRAMIDE HCL 10MG/2ML VIAL IV SCH (21:00)
[2024-06-11] VITALS (108 sets, daily range): BP systolic 56–127; BP diastolic 34–101; PULSE 72–115; RESP 17–30; TEMP 36.3–37.4; O2SAT 0–100
[2024-06-11 05:26] LABS: POTASSIUM 3.8 mEq/L (3.5-5.1)
[2024-06-11 05:28] LABS: CALCIUM 10.8 mg/dL (8.7-10.4)
[2024-06-11 05:29] LABS: AMMONIA 153 uMol/L (<32); MEAN CORPUSCULAR VOLUME 110.2 fL (81.0-99.0)
[2024-06-11 05:32] LABS: CREATININE 2.8 mg/dL (0.6-1.0)
[2024-06-11 06:24] LABS: INR 2.7
[2024-06-11 08:18] LABS: HEMATOCRIT. 36.6 % (36.0-48.0); MEAN CORPUSCULAR HEMOGLOBIN 33.1 pg (28.0-32.0); RED BLOOD CELL COUNT 3.32 mill/uL (4.2-5.4); RED CELL DISTRIBUTION WIDTH 27.1 % (11.6-14.6)
[2024-06-11 08:57] LABS: DIFFERENTIAL COMMENT 1
[2024-06-11 09:07] LABS: PLATELET 40 x1000/uL (130-400)
[2024-06-11] MEDS: PHENYLEPHRINE 50MG/250ML PMX 250 ML IV PRN (09:11)
[2024-06-11 11:23] LABS: BG DEOXYHEMOGLOBIN 8.4 % (0.0-5.0); BG FRACTION INSPIRED OXYGEN 60; BG HCO3 ACT 16.1 mmol/L (21.0-28.0); BG METHEMOGLOBIN 0.3 % (0.5-1.5); BG OXYGEN SATURATION 91.5 % (94.0-98.0); BG OXYHEMOGLOBIN 90.3 % (94.0-98.0); BG PCO2 36.3 mmHg (32.0-45.0); BG PH 7.266 (7.350-7.450); BG PO2 68.6 mmHg (83.0-108.0); BG SAMPLE SITE LEFT RADIAL; BG TOTAL HEMOGLOBIN 12.1 g/dL (12.0-16.0); BG VENT MODE VENT - AC
[2024-06-11 13:26] LABS: NUCLEATED RED BLOOD CELLS 113 /100 WBC; PLATELET ESTIMATE MN
[2024-06-11 13:27] LABS: MICROCYTOSIS 3+
[2024-06-11] MEDS: DEXT 5%/0.45% NACL 1000ML 1,000 ML IV SCH (15:50)
[2024-06-11] MEDS ORDERED: VASOPRESSIN 20 UNIT in SODIUM CHLORIDE 0.9% 99 ML IV PRN (16:30)
[2024-06-11] MEDS: VASOPRESSIN 20 UNIT in SODIUM CHLORIDE 0.9% 99 ML IV PRN (17:39)
[2024-06-11] MEDS: PHYTONADIONE 10 MG in DEXTROSE 5% WATER 50 ML IV NR (19:17)
[2024-06-11 19:59] LABS: HEMATOCRIT. 34.5 % (36.0-48.0); HEMOGLOBIN. 10.3 g/dL (12.0-16.0); MEAN CORPUSCULAR HEMOGLOBIN 32.7 pg (28.0-32.0); MEAN CORPUSCULAR HGB CONC 29.7 g/dL (31.0-37.0); MEAN CORPUSCULAR VOLUME 110.1 fL (81.0-99.0); MEAN PLATELET VOLUME 12.2 fl (7.4-10.4); RED BLOOD CELL COUNT 3.13 mill/uL (4.2-5.4); RED CELL DISTRIBUTION WIDTH 27.8 % (11.6-14.6)
[2024-06-11 20:04] LABS: POTASSIUM 3.6 mEq/L (3.5-5.1)
[2024-06-11 20:06] LABS: CALCIUM 10.7 mg/dL (8.7-10.4)
[2024-06-11 20:10] LABS: CREATININE 2.7 mg/dL (0.6-1.0)
[2024-06-11 20:14] LABS: DIFFERENTIAL COMMENT 1; PLATELET 46 x1000/uL (130-400)
[2024-06-11 20:15] LABS: PROTHROMBIN TIME 29.4 sec (9.6-11.0)
[2024-06-11 20:27] LABS: LACTIC ACID 24.9 mmol/L (0.4-2.0)
[2024-06-11 20:32] LABS: ANISOCYTOSIS 3+; NUCLEATED RED BLOOD CELLS 52 /100 WBC; PLATELET ESTIMATE MARKEDLY DECREASED
[2024-06-11] MEDS ORDERED: PHENYLEPHRINE 50 MG in SODIUM CHLORIDE 0.9% 245 ML IV PRN (20:45)
[2024-06-12] VITALS (108 sets, daily range): BP systolic 77–135; BP diastolic 42–78; PULSE 83–103; RESP 18–28; TEMP 35.72508–37; O2SAT 0–100
[2024-06-12] MEDS: PHENYLEPHRINE 100 MG in DEXT 5% WATER 240 ML IV PRN (02:33)
[2024-06-12 05:38] LABS: AMMONIA 102 uMol/L (<32)
[2024-06-12 05:44] LABS: HEMATOCRIT 30.9 % (36.0-48.0); HEMOGLOBIN 9.5 g/dL (12.0-16.0); MEAN CORPUSCULAR HEMOGLOBIN 33.4 pg (28.0-32.0); MEAN CORPUSCULAR HGB CONC 30.6 g/dL (31.0-37.0); MEAN CORPUSCULAR VOLUME 109.1 fL (81.0-99.0); RED BLOOD CELL COUNT 2.84 mill/uL (4.2-5.4); RED CELL DISTRIBUTION WIDTH 27.9 % (11.6-14.6)
[2024-06-12 06:00] LABS: CARBON DIOXIDE 15 mEq/L (21-32); CHLORIDE 100 mEq/L (98-107); POTASSIUM 3.7 mEq/L (3.5-5.1); SODIUM 144 mEq/L (136-145)
[2024-06-12 06:04] LABS: CREATININE 2.9 mg/dL (0.6-1.0)
[2024-06-12 06:06] LABS: GLUCOSE 172 mg/dL (70-105); UREA NITROGEN BLOOD 21 mg/dL (9-23)
[2024-06-12 06:07] LABS: GAMMA GLUTAMYL TRANSPEPTIDASE 61 IU/L (<38)
[2024-06-12 06:08] LABS: BILIRUBIN TOTAL 6.9 mg/dL (0.1-1.0); PHOSPHORUS 5.4 mg/dL (2.5-4.9)
[2024-06-12 06:11] LABS: INR 2.3; PROTHROMBIN TIME 22.9 sec (9.6-11.0)
[2024-06-12] MEDS: PHYTONADIONE 10 MG in DEXTROSE 5% WATER 49 ML IV NR (15:05)
[2024-06-12] MEDS: MEROPENEM 500MG/50ML 50 ML IV SCH (18:23)
[2024-06-12 22:29] LABS: INR 2.1; PROTHROMBIN TIME 21.4 sec (9.6-11.0)
[2024-06-12 22:34] LABS: HEMATOCRIT. 29.4 % (36.0-48.0); HEMOGLOBIN. 9.3 g/dL (12.0-16.0); MEAN CORPUSCULAR HEMOGLOBIN 33.2 pg (28.0-32.0); MEAN CORPUSCULAR HGB CONC 31.5 g/dL (31.0-37.0); MEAN CORPUSCULAR VOLUME 105.4 fL (81.0-99.0); MEAN PLATELET VOLUME 11.6 fl (7.4-10.4); RED BLOOD CELL COUNT 2.79 mill/uL (4.2-5.4); RED CELL DISTRIBUTION WIDTH 27.1 % (11.6-14.6); WHITE BLOOD COUNT 33.8 x1000/uL (4.5-11.0)
[2024-06-12 22:41] LABS: DIFFERENTIAL COMMENT 1
[2024-06-12 22:43] LABS: PLATELET 29 x1000/uL (130-400)
[2024-06-12 23:36] LABS: NUCLEATED RED BLOOD CELLS 52 /100 WBC; PLATELET ESTIMATE MARKEDLY DECREASED
[2024-06-12 23:37] LABS: ANISOCYTOSIS 2+
[2024-06-13] VITALS (117 sets, daily range): BP systolic 63–141; BP diastolic 16–112; PULSE 94–116; RESP 6–28; TEMP 35.2806–36.2; O2SAT 97–100
[2024-06-13 05:11] LABS: CARBON DIOXIDE 22 mEq/L (21-32); CHLORIDE 98 mEq/L (98-107); SODIUM 140 mEq/L (136-145)
[2024-06-13 05:16] LABS: CREATININE 2.8 mg/dL (0.6-1.0); GLUCOSE 332 mg/dL (70-105); URIC ACID 5.5 mg/dL (3.1-7.8)
[2024-06-13 05:17] LABS: AMMONIA 68 uMol/L (<32); UREA NITROGEN BLOOD 27 mg/dL (9-23)
[2024-06-13 05:18] LABS: HEMOGLOBIN. 9.8 g/dL (12.0-16.0); LACTATE DEHYDROGENASE 610 IU/L (120-246); MEAN CORPUSCULAR HEMOGLOBIN 32.8 pg (28.0-32.0); MEAN CORPUSCULAR HGB CONC 31.5 g/dL (31.0-37.0); MEAN CORPUSCULAR VOLUME 104.1 fL (81.0-99.0); MEAN PLATELET VOLUME 10.3 fl (7.4-10.4); RED BLOOD CELL COUNT 2.98 mill/uL (4.2-5.4); RED CELL DISTRIBUTION WIDTH 27.6 % (11.6-14.6)
[2024-06-13 06:05] LABS: BILIRUBIN TOTAL 8.2 mg/dL (0.1-1.0)
[2024-06-13 06:20] LABS: DIFFERENTIAL COMMENT 1
[2024-06-13 06:21] LABS: PLATELET 25 x1000/uL (130-400)
[2024-06-13 06:48] LABS: INR 2.2; PROTHROMBIN TIME 22.1 sec (9.6-11.0)
[2024-06-13] MEDS: POTASSIUM CHLORIDE 20MEQ/PACKET PO NR (08:00)
[2024-06-13 08:38] LABS: PLATELET 35 x1000/uL (130-400)
[2024-06-13] MEDS: DEXT 5%/0.45% NACL 1000ML 1,000 ML IV SCH (10:41)
[2024-06-13 11:13] LABS: BG BASE EXCESS -3.7 mmol/L (-2.0-3.0); BG CARBOXYHEMOGLOBIN 1.1 % (0.5-1.5); BG DEOXYHEMOGLOBIN 9.6 % (0.0-5.0); BG FRACTION INSPIRED OXYGEN 50; BG HCO3 ACT 20.9 mmol/L (21.0-28.0); BG METHEMOGLOBIN 0.2 % (0.5-1.5); BG OXYGEN SATURATION 90.3 % (94.0-98.0); BG OXYHEMOGLOBIN 89.1 % (94.0-98.0); BG PH 7.381 (7.350-7.450); BG PO2 60.6 mmHg (83.0-108.0); BG SAMPLE SITE LEFT RADIAL; BG TOTAL HEMOGLOBIN 10.8 g/dL (12.0-16.0); BG VENT MODE VENT - AC
[2024-06-13] MEDS: KCL 20MEQ/100ML PREMIX 100 ML IV SCH (12:33)
[2024-06-13 15:30] LABS: NUCLEATED RED BLOOD CELLS 35 /100 WBC; PLATELET ESTIMATE MARKEDLY DECREASED
[2024-06-13] MEDS ORDERED: LEVOFLOXACIN 500MG PREMIX 100 ML IV NR (17:00)
[2024-06-13] MEDS: MICAFUNGIN 100 MG in SODIUM CHLORIDE 0.9% 100 ML IV SCH (18:00)
[2024-06-13] MEDS: LEVOFLOXACIN 500MG PREMIX 100 ML IV NR (18:01)
[2024-06-13 18:30] LABS: HEMATOCRIT 32.5 % (36.0-48.0); HEMOGLOBIN 10.3 g/dL (12.0-16.0); MEAN CORPUSCULAR HGB CONC 31.7 g/dL (31.0-37.0); MEAN CORPUSCULAR VOLUME 104.1 fL (81.0-99.0); RED BLOOD CELL COUNT 3.12 mill/uL (4.2-5.4); RED CELL DISTRIBUTION WIDTH 26.7 % (11.6-14.6); WHITE BLOOD COUNT 36.1 x1000/uL (4.5-11.0)
[2024-06-13 18:38] LABS: PLATELET 23 x1000/uL (130-400)
[2024-06-13] MEDS: DOPAMINE 400MG/250ML PREMIX 250 ML IV PRN (21:43)
[2024-06-14] VITALS (101 sets, daily range): BP systolic 70–150; BP diastolic 48–69; PULSE 95–120; RESP 0–45; TEMP 35.8–36.3; O2SAT 0–100
[2024-06-14 05:31] LABS: HEMOGLOBIN. 9.5 g/dL (12.0-16.0); MEAN CORPUSCULAR HEMOGLOBIN 33.3 pg (28.0-32.0); MEAN CORPUSCULAR HGB CONC 31.8 g/dL (31.0-37.0); MEAN CORPUSCULAR VOLUME 104.9 fL (81.0-99.0); MEAN PLATELET VOLUME 9.8 fl (7.4-10.4); RED BLOOD CELL COUNT 2.86 mill/uL (4.2-5.4); RED CELL DISTRIBUTION WIDTH 26.9 % (11.6-14.6)
[2024-06-14 05:33] LABS: INR 2.3
[2024-06-14 06:00] LABS: CARBON DIOXIDE 21 mEq/L (21-32); CHLORIDE 95 mEq/L (98-107); POTASSIUM 3.5 mEq/L (3.5-5.1); SODIUM 134 mEq/L (136-145)
[2024-06-14 06:01] LABS: CALCIUM 10.5 mg/dL (8.7-10.4)
[2024-06-14 06:06] LABS: CREATININE 2.9 mg/dL (0.6-1.0); GLUCOSE 343 mg/dL (70-105); UREA NITROGEN BLOOD 30 mg/dL (9-23)
[2024-06-14 06:08] LABS: PHOSPHORUS 3.5 mg/dL (2.5-4.9)
[2024-06-14 06:10] LABS: BILIRUBIN TOTAL 9.2 mg/dL (0.1-1.0)
[2024-06-14 06:37] LABS: DIFFERENTIAL COMMENT 1
[2024-06-14 06:40] LABS: PLATELET 37 x1000/uL (130-400)
[2024-06-14] MEDS: PANTOPRAZOLE SODIUM 40 MG/VIAL IV SCH (09:00)
[2024-06-14] MEDS: SODIUM CHLORIDE 0.9% 500 ML IV NR (09:07)
[2024-06-14] MEDS: MAGNESIUM 2 G PREMIX 50 ML IV NR (09:39)
[2024-06-14] MEDS: MICAFUNGIN 100 MG in SODIUM CHLORIDE 0.9% 100 ML IV SCH (13:55)
[2024-06-14 14:34] LABS: ATYPICAL LYMPHOCYTES 1; NUCLEATED RED BLOOD CELLS 56 /100 WBC; PLATELET ESTIMATE MARKEDLY DECREASED
[2024-06-14 14:36] LABS: ANISOCYTOSIS 2+
[2024-06-14] MEDS: SODIUM CHLORIDE 0.9% 250 ML IV ONE (14:46)
[2024-06-15] VITALS (102 sets, daily range): BP systolic 53–145; BP diastolic 16–74; PULSE 56–98; RESP 17–30; TEMP 36.00288–36.2; O2SAT 92–100
[2024-06-15 09:22] LABS: HEMOGLOBIN 8.5 g/dL (12.0-16.0); MEAN CORPUSCULAR HEMOGLOBIN 33.7 pg (28.0-32.0); MEAN CORPUSCULAR HGB CONC 32.5 g/dL (31.0-37.0); MEAN CORPUSCULAR VOLUME 103.6 fL (81.0-99.0); RED BLOOD CELL COUNT 2.51 mill/uL (4.2-5.4); RED CELL DISTRIBUTION WIDTH 25.9 % (11.6-14.6)
[2024-06-15 09:23] LABS: CHLORIDE 93 mEq/L (98-107); POTASSIUM 3.4 mEq/L (3.5-5.1); SODIUM 127 mEq/L (136-145)
[2024-06-15 09:26] LABS: CALCIUM 9.8 mg/dL (8.7-10.4); CARBON DIOXIDE 19 mEq/L (21-32)
[2024-06-15 09:31] LABS: CREATININE 2.8 mg/dL (0.6-1.0); GLUCOSE 335 mg/dL (70-105); UREA NITROGEN BLOOD 32 mg/dL (9-23)
[2024-06-15 09:33] LABS: ALANINE AMINOTRANSFERASE 30 IU/L (10-49); ALBUMIN 1.7 g/dL (3.2-4.8); AMMONIA 41 uMol/L (<32); ASPARTATE AMINOTRANSFERASE 70 IU/L (<34); BILIRUBIN TOTAL 9.6 mg/dL (0.1-1.0); PROTEIN TOTAL 3.9 g/dL (6.0-8.3)
[2024-06-15] MEDS: DEXT 5%/0.9% NACL 1,000 ML IV SCH (09:50)
[2024-06-15] MEDS ORDERED: POTASSIUM CHLORIDE 20 MEQ in DEXT 5% WATER 90 ML IV ONE (11:15)
[2024-06-15] MEDS: KCL 20MEQ/100ML PREMIX 100 ML IV NR (11:32)
[2024-06-15 12:18] LABS: PLATELET 18 x1000/uL (130-400)
[2024-06-16] VITALS (78 sets, daily range): BP systolic 25–139; BP diastolic 10–73; PULSE 23–92; RESP 0–41; TEMP 35.6–36.2; O2SAT 76–99
[2024-06-16 06:22] LABS: HEMATOCRIT. 34.2 % (36.0-48.0); HEMOGLOBIN. 9.5 g/dL (12.0-16.0); MEAN CORPUSCULAR HEMOGLOBIN 33.8 pg (28.0-32.0); MEAN CORPUSCULAR HGB CONC 27.9 g/dL (31.0-37.0); MEAN PLATELET VOLUME 10.4 fl (7.4-10.4); RED BLOOD CELL COUNT 2.82 mill/uL (4.2-5.4); RED CELL DISTRIBUTION WIDTH 27.6 % (11.6-14.6)
[2024-06-16] MEDS: DEXT 10% WATER 1,000 ML IV SCH (06:24)
[2024-06-16] MEDS: DEXT 5%/0.9% NACL 1,000 ML IV SCH (07:45)
[2024-06-16 08:12] LABS: DIFFERENTIAL COMMENT 1
[2024-06-16 08:31] LABS: INR 2.5; POTASSIUM 3.8 mEq/L (3.5-5.1); PROTHROMBIN TIME 24.5 sec (9.6-11.0)
[2024-06-16 08:32] LABS: CALCIUM 9.1 mg/dL (8.7-10.4)
[2024-06-16 08:37] LABS: CREATININE 2.7 mg/dL (0.6-1.0)
[2024-06-16 09:48] LABS: BG BASE EXCESS -17.1 mmol/L (-2.0-3.0); BG CARBOXYHEMOGLOBIN 0.9 % (0.5-1.5); BG DEOXYHEMOGLOBIN 8.2 % (0.0-5.0); BG FRACTION INSPIRED OXYGEN 100; BG HCO3 ACT 10.4 mmol/L (21.0-28.0); BG METHEMOGLOBIN 0.2 % (0.5-1.5); BG OXYGEN SATURATION 91.7 % (94.0-98.0); BG OXYHEMOGLOBIN 90.7 % (94.0-98.0); BG PCO2 30.9 mmHg (32.0-45.0); BG PH 7.145 (7.350-7.450); BG SAMPLE SITE RIGHT RADIAL; BG TOTAL HEMOGLOBIN 7.7 g/dL (12.0-16.0); BG VENT MODE VENT - AC
[2024-06-16] MEDS: SODIUM BICARBONATE 8.4% 50MEQ/50ML SYR IV NR (10:19)
[2024-06-16 11:48] LABS: NUCLEATED RED BLOOD CELLS 20 /100 WBC
[2024-06-16 11:49] LABS: ANISOCYTOSIS 4+; PLATELET 50 x1000/uL (130-400); PLATELET ESTIMATE MARKEDLY DECREASED
[2024-06-16] MEDS: NOREPINEPHRINE 32 MG in DEXT 5% WATER 218 ML IV PRN (13:24)
[2024-06-16] MEDS: MORPHINE SULFATE 250 MG in DEXT 5% WATER 225 ML IV PRN (17:36)
== END 2024-06-16 18:35 | DRG 870 ==
LOC: ER 18:49 → MICUSO 05-28 00:09 → EDBEDREQ 05-28 00:27 → EDBEDREQSVC 05-28 00:27
PROVIDERS: ADMIT Hospitalist; ATTEND Hospitalist
PROC: 02HV33Z Insertion of Infusion Device into Superior Vena Cava, Percutaneous Approach (ICD-10-PCS; 2024-05-28)
PROC: B548ZZA Ultrasonography of Superior Vena Cava, Guidance (ICD-10-PCS; 2024-05-28)
PROC: 5A1955Z Respiratory Ventilation, Greater than 96 Consecutive Hours (ICD-10-PCS; principal; 2024-05-30)
PROC: 0BH17EZ Insertion of Endotracheal Airway into Trachea, Via Natural or Artificial Opening (ICD-10-PCS; 2024-05-30)
PROC: 0W9G30Z Drainage of Peritoneal Cavity with Drainage Device, Percutaneous Approach (ICD-10-PCS; 2024-05-30)
PROC: 30233K1 Transfusion of Nonautologous Frozen Plasma into Peripheral Vein, Percutaneous Approach (ICD-10-PCS; 2024-05-30)
PROC: 5A09357 Assistance with Respiratory Ventilation, Less than 24 Consecutive Hours, Continuous Positive Airway Pressure (ICD-10-PCS; 2024-05-30)
PROC: 0D9670Z Drainage of Stomach with Drainage Device, Via Natural or Artificial Opening (ICD-10-PCS; 2024-06-01)
PROC: 0BH17EZ Insertion of Endotracheal Airway into Trachea, Via Natural or Artificial Opening (ICD-10-PCS; 2024-06-06)
PROC: 06H033Z Insertion of Infusion Device into Inferior Vena Cava, Percutaneous Approach (ICD-10-PCS; 2024-06-07)
PROC: B549ZZA Ultrasonography of Inferior Vena Cava, Guidance (ICD-10-PCS; 2024-06-07)
PROC: 30233N1 Transfusion of Nonautologous Red Blood Cells into Peripheral Vein, Percutaneous Approach (ICD-10-PCS; 2024-06-07)
PROC: 5A1D70Z Performance of Urinary Filtration, Intermittent, Less than 6 Hours Per Day (ICD-10-PCS; 2024-06-07)
PROC: 0W9G3ZZ Drainage of Peritoneal Cavity, Percutaneous Approach (ICD-10-PCS; 2024-06-08)
PROC: 5A1D70Z Performance of Urinary Filtration, Intermittent, Less than 6 Hours Per Day (ICD-10-PCS; 2024-06-09)
PROC: 5A1D70Z Performance of Urinary Filtration, Intermittent, Less than 6 Hours Per Day (ICD-10-PCS; 2024-06-11)
PROC: 30233R1 Transfusion of Nonautologous Platelets into Peripheral Vein, Percutaneous Approach (ICD-10-PCS; 2024-06-13)
DX: A41.9 Sepsis, unspecified organism (principal); R65.21 Severe sepsis with septic shock; N17.0 Acute kidney failure with tubular necrosis; K76.7 Hepatorenal syndrome; J69.0 Pneumonitis due to inhalation of food and vomit; J96.01 Acute respiratory failure with hypoxia; J96.02 Acute respiratory failure with hypercapnia; D65 Disseminated intravascular coagulation [defibrination syndrome]; K27.4 Chronic or unspecified peptic ulcer, site unspecified, with hemorrhage; G92.8 Other toxic encephalopathy; I85.01 Esophageal varices with bleeding; K40.40 Unilateral inguinal hernia, with gangrene, not specified as recurrent; J90 Pleural effusion, not elsewhere classified; E87.20 Acidosis, unspecified; M62.82 Rhabdomyolysis; D68.4 Acquired coagulation factor deficiency; K76.6 Portal hypertension; K86.1 Other chronic pancreatitis; K70.31 Alcoholic cirrhosis of liver with ascites; J44.9 Chronic obstructive pulmonary disease, unspecified; N18.9 Chronic kidney disease, unspecified; E11.22 Type 2 diabetes mellitus with diabetic chronic kidney disease; Z66 Do not resuscitate; D53.9 Nutritional anemia, unspecified; E87.6 Hypokalemia; E83.51 Hypocalcemia; E11.65 Type 2 diabetes mellitus with hyperglycemia; I48.0 Paroxysmal atrial fibrillation; I12.9 Hypertensive chronic kidney disease with stage 1 through stage 4 chronic kidney disease, or unspecified chronic kidney disease; K70.40 Alcoholic hepatic failure without coma; D63.8 Anemia in other chronic diseases classified elsewhere; E03.9 Hypothyroidism, unspecified; E88.09 Other disorders of plasma-protein metabolism, not elsewhere classified; Z20.822 Contact with and (suspected) exposure to COVID-19; I25.10 Atherosclerotic heart disease of native coronary artery without angina pectoris; K76.0 Fatty (change of) liver, not elsewhere classified; R57.1 Hypovolemic shock; S41.112A Laceration without foreign body of left upper arm, initial encounter; E80.6 Other disorders of bilirubin metabolism; S70.322A Blister (nonthermal), left thigh, initial encounter; S70.321A Blister (nonthermal), right thigh, initial encounter; Z53.20 Procedure and treatment not carried out because of patient's decision for unspecified reasons; F17.210 Nicotine dependence, cigarettes, uncomplicated; Z79.01 Long term (current) use of anticoagulants; Z79.4 Long term (current) use of insulin; Z90.49 Acquired absence of other specified parts of digestive tract; Z79.899 Other long term (current) drug therapy; X58.XXXA Exposure to other specified factors, initial encounter; Y93.89 Activity, other specified; Y92.89 Other specified places as the place of occurrence of the external cause; Y99.8 Other external cause status
CPT/HCPCS: 31500; 36415; 36556; 36573; 36600; 49083; 71045; 71250; 74018; 74176; 76700; 76705; 76770; 76937; 80048; 80053; 80061; 80076; 80202; 80305; 81003; 82010; 82040; 82105; 82140; 82150; 82247; 82270; 82330; 82375; 82550; 82607; 82728; 82746; 82805; 82962; 82977; 83036; 83540; 83550; 83605; 83615; 83735; 83970; 83986; 84100; 84145; 84439; 84443; 84450; 84460; 84478; 84481; 84484; 84550; 85014; 85018; 85025; 85027; 85044; 85049; 85362; 85379; 85384; 86157; 86376; 86705; 86706; 86709; 86850; 86880; 86900; 86920; 86927; 87070; 87077; 87106; 87186; 87340; 87426; 88108; 88312; 90935; 92610; 93005; 93970; 94002; 94003; 94070; 94640; 94660; 94664; 98960; 99291; A4606; A6261; C1725; C1752; C1769; J0282; J0610; J0692; J1171; J1265; J1720; J1815; J1940; J1956; J2003; J2060; J2185; J2248; J2270; J2354; J2371; J2470; J2543; J2704; J2765; J3010; J3370; J3411; J3430; J3475; J3480; J3490; J7030; J7040; J7042; J7050; J7060; J7070; P9016; P9017; P9034; P9041; P9047; Q9957